=== PATIENT | male | born 1975 | race Caucasian/White ===

== ENCOUNTER 2024-07-31 20:43 | Inpatient (IN) ==
--- NOTE | 2024-07-31 21:09 | Emergency Department Note ---
Impression & Plan Atrial flutter with rapid ventricular response, Elevated troponin, MATTHIEU (acute kidney injury), Hypokalemia ED Provider Note NAME: FLORIDALMA DE LA TORRE IV AGE: 48 SEX: M : 1975 ARRIVES VIA: Walk-In INFORMANT: Patient ED PROVIDER(S): Dilshad Krause DO CHIEF COMPLAINT: Chest pain and shortness of breath HPI: Patient is a 48-year-old male who presents to the ER for chest pain, shortness of breath and some abdominal pain. He notes his symptoms initially started with intermittent abdominal pain since Friday. He has been struggling to go to the bathroom. He denies any black or tarry stools. He notes his belly feels bloated and does feel better after using the bathroom. He notes since Friday has been having off-and-on shortness of breath. He does not feel his heart racing. He does have some chest tightness and that occurs when he bends over. No dysuria, urgency, or frequency. No other exacerbating or remitting factors. Patient notes that he has a history of anxiety and feels extremely anxious at this time. ADDITIONAL HISTORY OBTAINED: Per HPI Chronic Medical/Social Conditions Affecting Care: Per HPI PAST MEDICAL HISTORY:See Below PAST SURGICAL HISTORY:See Below FAMILY HISTORY:See Below SOCIAL HISTORY:See Below HOME MEDICATIONS:See Below ALLERGIES:See Below VITALS:See Below PHYSICAL EXAMINATION: GENERAL: Sitting up in bed, alert, well appearing, well nourished, no distress, non-toxic EYE EXAM: normal conjunctiva. OROPHARYNX: mucous membranes are moist NECK: supple, no nuchal rigidity, no adenopathy, non-tender LUNGS: Clear to auscultation. Normal chest wall mechanics HEART: no murmurs, S1 normal and S2 normal ABDOMEN: abdomen soft, non-tender, normo-active bowel sounds, no masses, no rebound or guarding. UPPER EXTREMITIES: upper extremities are grossly normal. LOWER EXTREMITIES: No pitting edema. Calves are equal bilaterally NEURO EXAM: Normal sensorium, cranial nerves II-XII grossly intact, normal speech, no gross weakness of arms, no gross weakness of legs. MEDICAL DECISION MAKING: Patient is a 48-year-old male who presents ER for the above-stated complaint. IV was established medicos obtained. Labs show no significant leukocytosis or anemia. BMP with mild hypokalemia 3.4. Creatinine slightly up at 1.5. LFTs bilirubin is unremarkable. Troponin was elevated at 115. Lipase is unremarkable. Patient's heart rate was in the 140s. He was given IV fluids and 3 dose of IV Lopressor. Heart rate trended down to the 100s and showed A-fib. Blood pressure trended up from 230s to 160. Patient was updated bedside. Discussed the case with the hospitalist for further evaluation management treatment. Consults/Care Managements Discussions: Per MDM Triage Nursing notes reviewed. Limited review of prior medical records performed Vital Signs: reviewed and remarkable for tachycardic and hypertensive Differential diagnosis: Cardiac ischemia, aortic dissection, pulmonary embolism, pneumothorax, pneumonia, pericarditis, myocarditis, esophageal rupture, GERD, cholecystitis, pancreatitis, musculoskeletal, as well as other pathologies. ER treatment provided: See below Diagnostics interpreted by me include EKG and cardiac monitoring as listed below: -Cardiac Monitoring: An order was placed for continuous cardiac monitoring. The monitor shows a rate of 144 with AFLUTTER rhythm. -ECG: Atrial flutter rate of 144 Normal axis Right bundle branch block QTc 538 -Laboratory studies:Interpreted by me as stated above in MDM and shown below. Imaging studies: Xrays: As interpreted by me: Portable AP upright 1 view of the chest shows no focal Lutrate CTs show: None Procedures: None Critical Care: I have personally spent 45 minutes of critical care time in the direct management of this patient. This includes bedside care, interpretation of diagnostic studies, and testing, discussion with consultants, patient, and family members, and other required patient management activities. This 45 minutes is in excess of all separately billable procedures. Past Med/Surg History Problem List (Updated 07/31/24 @ 23:38 by Marissa Lyles DO) Hypokalemia MATTHIEU (acute kidney injury) HTN (hypertension) Atrial fibrillation and flutter Social History Smoking Status: Never smoker Preferred Language: Kyrgyz Feels Safe at Home: Yes Allergies Allergies Allergy/AdvReac Type Severity Reaction Status Date / Time garlic AdvReac Mild ELEVATED Unverified 07/31/24 22:32 BODY TEMP aspartame AdvReac Migraine Verified 07/31/24 22:17 lactose AdvReac Abdominal Verified 07/31/24 22:32 Pain mushroom AdvReac Abdominal Verified 07/31/24 22:32 Pain Home Meds Home Medications Medication Instructions Recorded Confirmed No Known Home Medications 07/31/24 07/31/24 Results & Data (ED) Vital Signs Vital Signs - 24 hr 07/31/24 20:44 07/31/24 21:03 07/31/24 21:06 Pulse Rate 143 H 143 H Pulse Rate [Apical] Pulse Rhythm Regular Pulse Rhythm [Apical] Pulse Strength Normal Pulse Strength [Apical] Respiratory Rate 20 37 H Respiratory Effort / Characteristics Non-Labored Spontaneous Respiratory Depth Normal Respiratory Pattern Regular Blood Pressure 245/117 H 237/188 H Blood Pressure [Right Arm] Blood Pressure Mean 159 204 Blood Pressure Mean [Right Arm] Blood Pressure Position Sitting Pulse Oximetry 97 Oxygen Delivery Method Room Air Sepsis Recent Fever Within 48 Hours No Sepsis New/Unexplained Change in Mental Status No Sepsis Action Taken by Nursing No Action Required 07/31/24 21:18 07/31/24 21:18 07/31/24 21:19 Pulse Rate 141 H 139 H Pulse Rate [Apical] Pulse Rhythm Pulse Rhythm [Apical] Pulse Strength Pulse Strength [Apical] Respiratory Rate 20 Respiratory Effort / Characteristics Respiratory Depth Respiratory Pattern Blood Pressure 225/184 H 225/184 H Blood Pressure [Right Arm] Blood Pressure Mean 194 Blood Pressure Mean [Right Arm] Blood Pressure Position Pulse Oximetry Oxygen Delivery Method Sepsis Recent Fever Within 48 Hours Sepsis New/Unexplained Change in Mental Status Sepsis Action Taken by Nursing 07/31/24 21:25 07/31/24 21:25 07/31/24 21:27 Pulse Rate 135 H Pulse Rate [Apical] 137 H Pulse Rhythm Pulse Rhythm [Apical] Pulse Strength Pulse Strength [Apical] Respiratory Rate 33 H Respiratory Effort / Characteristics Non-Labored Spontaneous Respiratory Depth Normal Respiratory Pattern Regular Blood Pressure Blood Pressure [Right Arm] 225/184 H Blood Pressure Mean Blood Pressure Mean [Right Arm] 197 Blood Pressure Position Pulse Oximetry 97 97 Oxygen Delivery Method Room Air Room Air Sepsis Recent Fever Within 48 Hours Sepsis New/Unexplained Change in Mental Status Sepsis Action Taken by Nursing 07/31/24 21:30 07/31/24 21:30 07/31/24 21:35 Pulse Rate 134 H Pulse Rate [Apical] Pulse Rhythm Pulse Rhythm [Apical] Pulse Strength Pulse Strength [Apical] Respiratory Rate Respiratory Effort / Characteristics Respiratory Depth Respiratory Pattern Blood Pressure 188/142 H 188/142 H 180/141 H Blood Pressure [Right Arm] Blood Pressure Mean 146 149 Blood Pressure Mean [Right Arm] Blood Pressure Position Pulse Oximetry Oxygen Delivery Method Sepsis Recent Fever Within 48 Hours Sepsis New/Unexplained Change in Mental Status Sepsis Action Taken by Nursing 07/31/24 21:42 07/31/24 21:45 07/31/24 21:45 Pulse Rate 109 H 104 H Pulse Rate [Apical] Pulse Rhythm Pulse Rhythm [Apical] Pulse Strength Pulse Strength [Apical] Respiratory Rate 19 18 Respiratory Effort / Characteristics Respiratory Depth Respiratory Pattern Blood Pressure 161/122 H Blood Pressure [Right Arm] Blood Pressure Mean 127 Blood Pressure Mean [Right Arm] Blood Pressure Position Pulse Oximetry Oxygen Delivery Method Sepsis Recent Fever Within 48 Hours Sepsis New/Unexplained Change in Mental Status Sepsis Action Taken by Nursing 07/31/24 21:45 07/31/24 21:54 07/31/24 22:00 Pulse Rate 105 H 104 H Pulse Rate [Apical] Pulse Rhythm Pulse Rhythm [Apical] Pulse Strength Pulse Strength [Apical] Respiratory Rate Respiratory Effort / Characteristics Respiratory Depth Respiratory Pattern Blood Pressure 161/122 H Blood Pressure [Right Arm] Blood Pressure Mean 127 Blood Pressure Mean [Right Arm] Blood Pressure Position Pulse Oximetry Oxygen Delivery Method Sepsis Recent Fever Within 48 Hours Sepsis New/Unexplained Change in Mental Status Sepsis Action Taken by Nursing 07/31/24 22:00 07/31/24 22:00 07/31/24 22:15 Pulse Rate 110 H Pulse Rate [Apical] Pulse Rhythm Pulse Rhythm [Apical] Pulse Strength Pulse Strength [Apical] Respiratory Rate 16 Respiratory Effort / Characteristics Respiratory Depth Respiratory Pattern Blood Pressure 159/122 H 159/122 H Blood Pressure [Right Arm] Blood Pressure Mean 140 140 Blood Pressure Mean [Right Arm] Blood Pressure Position Pulse Oximetry Oxygen Delivery Method Sepsis Recent Fever Within 48 Hours Sepsis New/Unexplained Change in Mental Status Sepsis Action Taken by Nursing 07/31/24 22:27 07/31/24 22:27 07/31/24 22:31 Pulse Rate 107 H 106 H Pulse Rate [Apical] Pulse Rhythm Pulse Rhythm [Apical] Pulse Strength Pulse Strength [Apical] Respiratory Rate Respiratory Effort / Characteristics Respiratory Depth Respiratory Pattern Blood Pressure 166/32 H 166/132 H 163/136 H Blood Pressure [Right Arm] Blood Pressure Mean 144 Blood Pressure Mean [Right Arm] Blood Pressure Position Pulse Oximetry Oxygen Delivery Method Sepsis Recent Fever Within 48 Hours Sepsis New/Unexplained Change in Mental Status Sepsis Action Taken by Nursing 07/31/24 22:31 07/31/24 22:31 07/31/24 22:33 Pulse Rate 110 H Pulse Rate [Apical] Pulse Rhythm Pulse Rhythm [Apical] Pulse Strength Pulse Strength [Apical] Respiratory Rate 13 Respiratory Effort / Characteristics Respiratory Depth Respiratory Pattern Blood Pressure 163/136 H 163/136 H Blood Pressure [Right Arm] Blood Pressure Mean 144 144 Blood Pressure Mean [Right Arm] Blood Pressure Position Pulse Oximetry Oxygen Delivery Method Sepsis Recent Fever Within 48 Hours Sepsis New/Unexplained Change in Mental Status Sepsis Action Taken by Nursing 07/31/24 23:05 07/31/24 23:17 07/31/24 23:22 Pulse Rate 133 H 104 H Pulse Rate [Apical] 135 H Pulse Rhythm Irregular Pulse Rhythm [Apical] Irregular Pulse Strength Pulse Strength [Apical] Normal Respiratory Rate 23 22 Respiratory Effort / Characteristics Non-Labored Spontaneous Respiratory Depth Normal Respiratory Pattern Regular Blood Pressure 190/154 H Blood Pressure [Right Arm] 189/155 H Blood Pressure Mean Blood Pressure Mean [Right Arm] 166 Blood Pressure Position Pulse Oximetry 96 95 Oxygen Delivery Method Room Air Room Air Sepsis Recent Fever Within 48 Hours Sepsis New/Unexplained Change in Mental Status Sepsis Action Taken by Nursing Laboratory Data 07/31/24 21:10 07/31/24 21:10 Lab Results 07/31/24 07/31/24 Range/Units 21:10 Unknown WBC 9.07 (4.8-10.8) K/ul RBC 5.51 (4.70-6.10) M/uL Hgb 15.3 (14.0-18.0) g/dl Hct 45.2 (42.0-52.0) % MCV 82.0 (80.0-100.0) fL MCH 27.8 (25.0-34.0) pg MCHC 33.8 (32.0-36.0) g/dL RDW Std Deviation 44.8 (36.4-46.3) fL RDW Coeff of Raheem 15.0 H (11.5-14.5) % Plt Count 296 (130-400) K/uL MPV 10.9 (9.4-12.4) fL Immature Gran % (Auto) 0.6 % Neut % (Auto) 77.2 % Lymph % (Auto) 14.4 % [place] % (Auto) 6.2 % Eos % (Auto) 0.9 % Baso % (Auto) 0.7 % Neut # (Auto) 7.01 H (1.40-6.50) K/uL Lymph # (Auto) 1.31 (1.20-3.40) K/uL [place] # (Auto) 0.56 (0.11-0.59) K/uL Eos # (Auto) 0.08 (0.00-0.50) K/uL Baso # (Auto) 0.06 (0.00-0.20) K/uL Immature Gran # (Auto) 0.05 (0.01-0.20) K/uL Sodium 137 (136-145) mmol/L Potassium 3.4 L (3.5-5.1) mmol/L Chloride 100 (98-107) mmol/L Carbon Dioxide 28 (21-32) mmol/L Anion Gap 9 (3-11) BUN 19 (6-23) mg/dl Creatinine 1.66 H (0.6-1.4) mg/dl Est Cr Clr Drug Dosing 72.4 ml/min Est GFR ( Amer) 55.6 ml/min Est GFR (Non-Af Amer) 48.0 ml/min BUN/Creatinine Ratio 11.4 (10-20) Glucose 152 H (70-99(Fasting)) mg/dl Calcium 9.5 (8.6-10.3) mg/dl Magnesium 2.2 (1.7-2.4) mg/dl Total Bilirubin 1.0 (0.2-1.0) mg/dl AST 24 (13-39) U/L ALT 29 (7-52) U/L Alkaline Phosphatase 85 (34-104) U/L Troponin I High Sens 113.7 H* (0-20) pg/ml Total Protein 7.1 (6.0-8.3) gm/dl Albumin 4.5 (3.4-5.0) gm/dl Globulin 2.6 (2.5-4.0) gm/dl Albumin/Globulin Ratio 1.7 (0.9-2) Lipase 7 L (11-82) U/L Urine Color Cancelled Urine Appearance Cancelled Urine pH Cancelled Ur Specific Davin Cancelled Urine Protein Cancelled Urine Glucose (UA) Cancelled Urine Ketones Cancelled Urine Blood Cancelled Urine Nitrite Cancelled Urine Bilirubin Cancelled Urine Urobilinogen Cancelled Ur Leukocyte Esterase Cancelled Urine WBC (Auto) Cancelled Urine RBC (Auto) Cancelled U Hyaline Cast (Auto) Cancelled U Epithel Cells (Auto) Cancelled Urine Bacteria (Auto) Cancelled Ur Renal Epithelial Cell Cancelled [place] Biurate Crystals Cancelled Calcium Oxalate Crystal Cancelled Leucine Crystals Cancelled Cystine Crystals Cancelled Uric Acid Crystals Cancelled Triple Phos Crystals Cancelled Sulfonamide Crystals Cancelled Cholesterol Crystals Cancelled [place] Crystals Cancelled Tyrosine Crystals Cancelled Hippuric Acid Crystals Cancelled Unidentified Crystals Cancelled Amorphous Sediment Cancelled Epithelial Casts Cancelled Hyaline Casts Cancelled Granular Casts Cancelled Waxy Casts Cancelled RBC Casts Cancelled WBC Casts Cancelled Other Casts Cancelled Urine Mucus Cancelled Urine Other Cancelled Urine Trichomonas Cancelled Urine Yeast Cancelled Urine Sperm Cancelled Ur Oval Fat Bodies Cancelled Administered Medications Metoprolol Tartrate (Metoprolol Tartrate 1 Mg/Ml Vial) 5 mg IV Q5M PRN PRN Reason: Tachycardia Stop: 08/30/24 21:04 Last Admin: 07/31/24 23:17 Dose: 5 mg Documented By: Admin: 07/31/24 21:30 Dose: 5 mg Documented By: Admin: 07/31/24 21:18 Dose: 5 mg Documented By: JULIEN Discontinued Medications Sodium Chloride (Nss) 1,000 mls @ 999 mls/hr IV .Q1H1M ONE Stop: 07/31/24 22:04 Last Infusion: 07/31/24 22:22 Dose: Infused Documented By: Admin: 07/31/24 21:21 Dose: 999 mls/hr Documented By: JULIEN Ondansetron HCl (Ondansetron Inj 2 Mg/Ml 2 Ml Vial) 4 mg IV NOW STA Stop: 07/31/24 21:27 Last Admin: 07/31/24 21:31 Dose: 4 mg Documented By: JULIEN Discharge Plan Visit Data Chief Complaint: GI Assessment Stated Complaint: GI ASSESSMENT ED Provider: Dilshad Krause Discharge Problem: Atrial flutter with rapid ventricular response, Elevated troponin, MATTHIEU (acute kidney injury), Hypokalemia Forms Stand Alone Forms: netomat Prescriptions Prescriptions: No Action No Known Home Medications Referrals Referrals: PCP,NO [Primary Care Provider] -
[2024-07-31] MEDS: METOPROLOL TARTRATE 1 MG/ML VIAL IV PRN (21:18)
[2024-07-31] MEDS: SODIUM CHLORIDE 0.9% 1,000 ML IV ONE (21:21)
[2024-07-31] MEDS: ONDANSETRON INJ 2 MG/ML 2 ML VIAL IV STA (21:31)
[2024-07-31 21:37] LABS: Basophils # (auto) 0.06 K/uL (0.00-0.20); Basophils % (auto) 0.7 %; Eosinophils # (auto) 0.08 K/uL (0.00-0.50); Eosinophils % (auto) 0.9 %; Hematocrit (blood only) 45.2 % (42.0-52.0); Hemoglobin 15.3 g/dl (14.0-18.0); Immature Granulocytes # (auto) 0.05 K/uL (0.01-0.20); Immature Granulocytes % (auto) 0.6 %; Lymphocytes # (auto) 1.31 K/uL (1.20-3.40); Lymphocytes % (auto) 14.4 %; Mean Corpuscular Hemoglobin 27.8 pg (25.0-34.0); Mean Corpuscular Hgb Conc 33.8 g/dL (32.0-36.0); Mean Platelet Volume 10.9 fL (9.4-12.4); Monocytes # (auto) 0.56 K/uL (0.11-0.59); Monocytes % (auto) 6.2 %; Neutrophils # (auto) 7.01 K/uL (1.40-6.50); Neutrophils % (auto) 77.2 %; Platelet Count 296 K/uL (130-400); RDW Standard Deviation 44.8 fL (36.4-46.3); Red Blood Count 5.51 M/uL (4.70-6.10); White Blood Count 9.07 K/ul (4.8-10.8)
[2024-07-31 21:55] LABS: Albumin Globulin Ratio 1.7 (0.9-2); Albumin Level 4.5 gm/dl (3.4-5.0); BUN Creatinine Ratio 11.4 (10-20); Calcium 9.5 mg/dl (8.6-10.3); Creatinine Clr Calc Pharmacy 72.4 ml/min; Est GFR (African American) 55.6 ml/min; Globulin 2.6 gm/dl (2.5-4.0); Potassium 3.4 mmol/L (3.5-5.1); Total Protein 7.1 gm/dl (6.0-8.3)
[2024-07-31 22:04] LABS: Troponin I High Sensitivity 113.7 pg/ml (0-20)
[2024-07-31 23:02] LABS: Magnesium 2.2 mg/dl (1.7-2.4)
--- NOTE | 2024-07-31 23:26 | History & Physical Report ---
Date of Service July 31, 2024 Assessment & Plan (1) Atrial fibrillation and flutter: Plan: - New onset - S/p Lopressor x 3 in ED with minimal improvement in rates - rates into 80s with IV Cardizem-> was transitioned to PO Cardizem but rates not well controlled -> start on amiodarone gtt - [id number]= 1-> will need anticoagulin - plan to start on heparin gtt - TTE pending - consult cardiology (2) HTN (hypertension): Plan: - Hypertensive on presentation, some improvement in Lopressor - likely has been hypertensive for a period of time - adjust regimen alone with afib (3) MATTHIEU (acute kidney injury): Plan: - MATTHIEU vs CKD - no baseline for comparison - if uncontrolled HTN, this could certainly be contributing to elevated creatinine - creatine= 1.66 - s/p 1L IVF in the ED - continue LR @ 125ml/hr for an additional 1L -> trend creatinine (4) Hypokalemia: Plan: - K= 3.4; repleted - Mg= 2.2 - continue to trend with goal K=4, Mg=2 (5) Elevated troponin: Plan: - trop 113-> 129 - likely demand in the setting of HTN emergency and new onset afib/flutter - chest pain resolved with decreased HR-> no ischemic changes on EKG - will trend to peak Plan Code: Full VTE Prophylaxis: Heparin gtt Diet: Heart Healthy Dispo: PCU History of Present Illness Primary Care Provider: NO PCP 48 year old male with a past medical history of HTN- not on any medications presenting with shortness of breath, chest tightness, abdominal discomfort. No PCP- has not been seen by a physician in a number of years. Over the past week noticed some increased abdominal bloating- thought it might be related to constipation. Began to feel short of breath, especially when leaning over and had some chest discomfort. Has never had symptoms like this before. When he arrived to the ED his HR was in the 140s blood pressure 240s/110s-> found to be in afib/flutter. No prior history of afib/flutter. Now s/p 5mg IV Lopressor x 2 with rates in the 100s. States that he is feeling much better. Still notes some abdominal bloating, but dyspnea/chest pain have improved. Denies dark/blood stools. Denies recent illness. Allergies Allergy/AdvReac Type Severity Reaction Status Date / Time garlic AdvReac Mild ELEVATED Unverified 07/31/24 22:32 BODY TEMP aspartame AdvReac Migraine Verified 07/31/24 22:17 lactose AdvReac Abdominal Verified 07/31/24 22:32 Pain mushroom AdvReac Abdominal Verified 07/31/24 22:32 Pain Home Medications Medication Instructions Recorded Confirmed Type No Known Home Medications 07/31/24 07/31/24 History Past Med/Surg History Problem List (Updated 08/01/24 @ 12:45 by Javier Shetty MD) Left ventricular dysfunction Elevated troponin Hypokalemia MATTHIEU (acute kidney injury) HTN (hypertension) Atrial fibrillation and flutter Social History Smoking Status: Never smoker Hx Alcohol Use: Yes Alcohol type: beer Hx Substance Use: No Preferred Language: Polish Communication Ability: Effective Zipper Trimmer Hand Required: No Beliefs That Will Affect Care: None Current Living Situation: Alone Other Information That Helps Us Care for You: No Feels Safe at Home: Yes Safety Concerns: Feels Safe At This Time Review of Systems Review of Systems: As per above Physical Exam Physical Exam: Constitutional: well-appearing, no acute distress HEENT: NCAT, no conjunctival injection CV: irregular rhythm, no murmur appreciated, extremities well-perfused, no LE edema Resp: CTABL, no wheezes/rales/rhonchi appreciated, no increased work of breathing GI: soft, nondistended, nontender MSK: no gross deformities appreciated Skin: warm, dry, no rash appreciated Neuro: alert, oriented, no focal neurologic deficit appreciated Results & Data Results & Data Vital Signs (Past 12 Hours) Vital Signs Pulse Pulse Resp BP BP Pulse Ox O2 Del Method 07/31/24 22:27 106 H 166/132 H 07/31/24 22:27 107 H 166/32 H 07/31/24 21:30 134 H 188/142 H 07/31/24 21:27 135 H 07/31/24 21:25 97 Room Air 07/31/24 21:25 137 H 33 H 225/184 H 97 Room Air 07/31/24 21:18 141 H 225/184 H 07/31/24 20:44 143 H 20 245/117 H 97 Room Air Supervising Physician Co-Signing Physician Notes Attending addendum: I have physically seen this patient, have supervised the medical residents activities, and agree with the H&P unless as otherwise noted. Assessment and Plan: Atrial flutter with RVR/hypertension- The patient will be admitted to telemetry for serial cardiac enzymes, serial EKG's, cardiac rhythm monitoring and a 2-D echocardiogram with Dopplers. Initial troponin 113.7, follow-up pending New onset diagnosis for patient, although he has had elevated blood pressure untreated by self-report for a number of years Received Lopressor 5 mg IV x 3 from the ED with little improvement Status post 1 L normal saline bolus from the ED Will give Klor-Con 40 mill equivalents p.o. now Trial of Cardizem 10 mg IV, and then placed on Cardizem 30 mg p.o. 4 times daily Patient had improved rate control, however, was still hypertensive to 180/100 Start amiodarone bolus with drip Consult cardiology Renal insufficiency- Creatinine 1.66, with no baseline for comparison Fluids as noted, recheck laboratories in the a.m. Hyperglycemia- Glucose 152 on admission, with no baseline for comparison Check hemoglobin A1c and fasting lipid panel Resident Activity Tracking Resident Involvement: Resident Care Provided Care Provided: Adult [facility] Medicine
[2024-07-31] MEDS: POTASSIUM CHLORIDE CRTAB 20 MEQ TABCR PO STA (23:52)
[2024-07-31] MEDS ORDERED: Heparin IV Adult Wt-Based Low-Dose *NO* INITIAL Bolus Protocol IV STA (23:57)
[2024-08-01] MEDS: HEPARIN SODIUM/DEXTROSE 25,000 UNITS/500 ML BAG IV SCH (00:17)
[2024-08-01] MEDS: dilTIAZem HCl 5 MG/ML 5 ML VIAL IV STA (00:34)
[2024-08-01] MEDS: dilTIAZem HCL 30 MG TAB PO STA (01:27)
[2024-08-01 02:21] LABS: Appearance Urine Clear (Clear); Bacteria Urine Automated None Seen (None Seen); Bilirubin Urine 1+ (Negative); Blood Urine Negative (Negative); Cast Urine Automated >20 /lpf (0-2); Color Urine Dark Yellow; Glucose Urine UA Negative (Negative); Hyaline Casts Urine Present /lpf (None Presnt); Ketones Urine Trace (Negative); Leukocyte Esterase Urine Negative (Negative); Nitrite Urine Negative (Negative); Protein Urine 4+ (Negative); RBC Urine Automated 0-2 /hpf (0-2); Specific Gravity Urine 1.028 (1.000-1.030); Urobilinogen Urine Negative (Negative); WBC Urine Automated 0-5 /hpf (0-5); pH Urine 5.5 (4.5-7.5)
[2024-08-01] MEDS: LACTATED RINGER'S 1,000 ML IV STA (02:54)
[2024-08-01] MEDS: dilTIAZem HCL 30 MG TAB PO SCH (05:37)
[2024-08-01 06:05] LABS: Hematocrit (blood only) 43.8 % (42.0-52.0); Hemoglobin 14.4 g/dl (14.0-18.0); Mean Corpuscular Hemoglobin 27.7 pg (25.0-34.0); Mean Corpuscular Hgb Conc 32.9 g/dL (32.0-36.0); Mean Corpuscular Volume 84.2 fL (80.0-100.0); Mean Platelet Volume 10.5 fL (9.4-12.4); Platelet Count 263 K/uL (130-400); RDW Coefficient of Variation 15.2 % (11.5-14.5); White Blood Count 8.66 K/ul (4.8-10.8)
[2024-08-01] MEDS ORDERED: AMIODARONE IV BOLUS & DRIP IV STA (06:05)
[2024-08-01] MEDS ORDERED: 0.2 MICRON FILTER SET 1 EACH IV STA (06:05)
[2024-08-01] MEDS ORDERED: STAT IV Infusion **Titration per Protocol STA (06:05)
[2024-08-01] MEDS: AMIODARONE / D5W 150 MG/100 ML BAG IV STA (06:21)
[2024-08-01 06:24] LABS: BUN Creatinine Ratio 12.6 (10-20); Calcium 9.1 mg/dl (8.6-10.3); Creatinine Clr Calc Pharmacy 75.6 ml/min; Est GFR (African American) 58.6 ml/min; Est GFR (Non-African American) 50.6 ml/min; Magnesium 2.2 mg/dl (1.7-2.4); Potassium 4.4 mmol/L (3.5-5.1)
[2024-08-01] MEDS: AMIODARONE / D5W 360 MG/200 ML BAG IV ONE (06:42)
[2024-08-01 07:48] LABS: ANTI-Xa, UFH(UnfractionatedHep < 0.10 IU/ml (0.3-0.7)
--- NOTE | 2024-08-01 08:08 | XRay Report ---
XR chest 1V portable CLINICAL HISTORY: Chest pain, nonspecific. COMPARISON STUDY: No previous studies for comparison. FINDINGS: There is no pneumothorax or pleural effusion. There is moderate enlargement of the cardiac silhouette. Pulmonary vascular congestion. There is no consolidation to suggest pneumonia. IMPRESSION: Moderate enlargement of the cardiac silhouette. Pulmonary vascular congestion. ACT 112: Negative or not required by law. Electronically signed by: Gavin Dimas M.D. 08/01/2024 8:07 AM
[2024-08-01] MEDS: HEPARIN SOD (PORCINE) 1000 UNIT/ML ONE (08:53)
--- NOTE | 2024-08-01 12:22 | Electrocardiogram Report ---
Test Reason : Blood Pressure : */* mmHG Vent. Rate : 102 BPM Atrial Rate : * BPM P-R Int : * ms QRS Dur : 170 ms QT Int : 430 ms P-R-T Axes : * 17 -29 degrees QTcB Int : 560 ms Atrial fibrillation with rapid ventricular response with premature ventricular or aberrantly conducte d complexes Right bundle branch block T wave abnormality, consider inferior ischemia Abnormal ECG When compared with ECG of 31-Jul-2024 21:00, (unconfirmed) Atrial fibrillation has replaced Atrial flutter Criteria for Septal infarct are no longer Present Inverted T waves have replaced nonspecific T wave abnormality in Inferior leads T wave inversion more evident in Anterior leads Confirmed by Javier Shetty ([id number]) on 08/01/2024 12:22:17 PM Referred By: REFERRED SELF Confirmed By: Javier Shetty
--- NOTE | 2024-08-01 12:22 | Electrocardiogram Report ---
Test Reason : Blood Pressure : */* mmHG Vent. Rate : 144 BPM Atrial Rate : 288 BPM P-R Int : * ms QRS Dur : 148 ms QT Int : 348 ms P-R-T Axes : 243 -7 -61 degrees QTcB Int : 538 ms Possible Atrial flutter with 2:1 A-V conduction Right bundle branch block Septal infarct , age undetermined Abnormal ECG No previous ECGs available Confirmed by Javier Shetty ([id number]) on 08/01/2024 12:22:28 PM Referred By: REFERRED SELF Confirmed By: Javier Shetty
--- NOTE | 2024-08-01 12:45 | Cardiology Consultation ---
Date of Consultation August 01, 2024 Assessment & Plan (1) Atrial fibrillation and flutter: -Suspect this has been present for a significant period of time. -Would discontinue amiodarone drip secondary to the above (i.e. no long- term anticoagulation). -Favor oral metoprolol titrate over diltiazem realizing left ventricular dysfunction. -Would use intravenous metoprolol to tartrate as needed for an elevated ventricular response. -Agree with intravenous heparin. -Would check a TSH level. 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 -Beta-cristina therapy as above. (3) HTN (hypertension): -Clearly needs antihypertensive agents. -Favor starting oral beta-blockers. History of Present Illness Attending Physician: Sae Lozada History of Present Illness Mr. Romero is a 48-year-old male admitted yesterday with new onset atrial fibrillation and a rapid ventricular response. This consultation was ordered to assist in his cardiac management. The patient was in his usual state of health until approximately 1 week prior to presentation. He began to experience significant "bloating" making it difficult for him to bend over and tie his shoes. Approximately 4 days ago, he began to note exertional dyspnea and intermittent chest discomfort. He was concerned that there was a "problem" and then presented to the emergency room for further care. On arrival here, the patient was in atrial fibrillation with a rapid ventricular response. His initial potassium level was low at 3.4. He was given intravenous metoprolol to tartrate with some improvement in his rates. He was then started on intravenous diltiazem and his ventricular sponsor is decreased into the 80s. He was transitioned over to oral diltiazem. He was also started on amiodarone drip. At no time as the patient experienced some palpitations. He has never been diagnosed with atrial fibrillation to the best of his knowledge. Currently, patient is resting comfortably in bed without complaints. Past medical and surgical history 1. Hypertension 2. 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 No tobacco Occasional alcohol Family history No early coronary artery disease Review of systems A 10 point review of system was undertaken and negative except that described above. 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 HEENT exam is negative. Neck is supple with full carotid upstrokes. There are no carotid bruits. Jugular venous pressure is flat at 90 degrees. There is no thyromegaly. Cardiovascular exam reveals an irregular regular rhythm with distant heart sounds. No obvious murmurs. Abdomen is soft without bruits but extremities reveal intact regard pulses bilaterally. There is no peripheral edema. Results & Data Vital Signs (Past 12 Hours) Vital Signs Temp Pulse Pulse Resp BP BP BP 08/01/24 11:22 37.2 C 90 20 173/129 H 08/01/24 09:01 92 H 24 168/130 H 08/01/24 08:30 89 24 154/123 H 08/01/24 08:16 82 22 152/118 H 08/01/24 07:47 87 24 181/134 H 08/01/24 07:16 81 22 148/120 H 08/01/24 06:48 84 22 178/118 H 08/01/24 06:30 103 H 15 180/136 H 08/01/24 06:03 104 H 22 179/134 H 08/01/24 05:51 97 H 18 188/148 H 08/01/24 05:27 92 H 19 169/138 H 08/01/24 05:00 87 19 176/153 H 08/01/24 03:57 85 21 181/130 H 08/01/24 03:00 86 20 166/139 H 08/01/24 01:54 77 19 157/112 H 08/01/24 01:50 36.7 C 92 H 18 152/126 H 08/01/24 01:24 93 H 19 158/125 H 08/01/24 01:12 94 H 21 158/125 H 08/01/24 01:00 88 17 163/127 H 08/01/24 00:45 82 15 161/129 H Pulse Ox O2 Del Method O2 Flow Rate 08/01/24 11:22 98 Room Air 08/01/24 09:01 98 Room Air 08/01/24 08:30 97 Room Air 08/01/24 08:16 97 Room Air 08/01/24 07:47 97 Room Air 08/01/24 07:16 96 Room Air 08/01/24 06:48 98 08/01/24 06:30 98 08/01/24 06:03 98 08/01/24 05:51 99 08/01/24 05:27 96 08/01/24 05:00 96 08/01/24 03:57 96 08/01/24 03:00 96 08/01/24 01:54 95 08/01/24 01:50 96 Room Air 08/01/24 01:24 96 Nasal Cannula 2 08/01/24 01:12 96 08/01/24 01:00 94 08/01/24 00:45 95 Laboratory Results Initial high-sensitivity troponin was 114 with follow-up values of 129 and 148. Initial potassium level was 3.4 with a follow-up value of 4.4. Diagnostic Findings Echocardiogram notes moderate to severe left ventricular dysfunction with an ejection fraction of 25 to 30%. There is moderate to severe global hypokinesis. There is mild LVH along with mild mitral regurgitation. EKG notes atrial fibrillation with a rapid ventricular response and incomplete right bundle branch block. Chest x-ray notes cardiomegaly and mild interstitial edema. PG Care Time/CCT Total # of Minutes Spent Total Time Spent with Patient: Total time spent is greater than 50% in coordination of care (as documented) at patient's floor/unit and/or counseling patient: Coding Level of Care Code 97061 IN/OBS CONSULT LVL 4,60M Diagnoses Atrial fibrillation and flutter I48.91; I48.92 Left ventricular dysfunction I51.9 HTN (hypertension) I10
--- NOTE | 2024-08-01 12:55 | XCELERA ---
[id number]
[2024-08-01] MEDS: AMIODARONE / D5W 360 MG/200 ML BAG IV SCH (13:13)
[2024-08-01 15:11] LABS: ANTI-Xa, UFH(UnfractionatedHep 0.12 IU/ml (0.3-0.7)
[2024-08-01] MEDS: ONDANSETRON INJ 2 MG/ML 2 ML VIAL IV SCH (16:07)
[2024-08-01] MEDS: HEPARIN SOD (PORCINE) 1000 UNIT/ML IV ONE ×2 (16:56→22:51)
--- NOTE | 2024-08-01 19:10 | Billing Data ---
Date of Service August 01, 2024 Coding Level of Care Code 78436 INT INP/OBS CARE
[2024-08-01] MEDS: METOPROLOL TARTRATE 1 MG/ML VIAL IV STA (20:07)
--- NOTE | 2024-08-01 21:05 | Communication Note ---
Date of Service: August 01, 2024 Notified at ~2000 this evening of pts rates in the 120s with BP 160s/130s. Asymptomatic. Last evening trial of Lopressor and Cardizem without good rate control- ultimately had good rate control with amiodarone. Per cardiology - amiodarone was d/c this morning due to concern of no intermediate designer anticoagulation/likely intermediate designer afib/flutter. Due to cardiomyopathy/reduced EF cardiology recommending beta cristina over Cardizem. Was given 5mg Lopressor with improvement in rates to low 100s. Stop Cardizem, start metoprolol tartrate-> will start with 50mg PO and see how he responds.
[2024-08-01] MEDS: METOPROLOL TARTRATE 50 MG TAB PO STA (22:08)
[2024-08-01 22:19] LABS: ANTI-Xa, UFH(UnfractionatedHep 0.19 IU/ml (0.3-0.7)
--- NOTE | 2024-08-01 22:46 | Hospitalist Progress Note ---
Date of Service August 01, 2024 Assessment & Plan (1) Atrial fibrillation and flutter: Plan: - New onset - S/p Lopressor x 3 in ED with minimal improvement in rates - rates into 80s with IV Cardizem-> was transitioned to PO Cardizem but rates not well controlled -> start on amiodarone gtt - [id number]= 2->HTN and CHF will need anticoagulin - plan to start on heparin gtt - TTE: lower EF tachycardia induced cardiomyopathy - consult cardiology: may need electrical cardioversion in AM amiodarone discontinued. (2) HTN (hypertension): Plan: - Hypertensive on presentation, some improvement in Lopressor - likely has been hypertensive for a period of time - adjust regimen alone with afib (3) MATTHIEU (acute kidney injury): Plan: - MATTHIEU vs CKD - no baseline for comparison - if uncontrolled HTN, this could certainly be contributing to elevated creatinine - creatine= 1.66 - s/p 1L IVF in the ED - continue LR @ 125ml/hr for an additional 1L -> trend creatinine (4) Hypokalemia: Plan: - K= 3.4; repleted - Mg= 2.2 - continue to trend with goal K=4, Mg=2 (5) Elevated troponin: Plan: - trop 113-> 129 - likely demand in the setting of HTN emergency and new onset afib/flutter - chest pain resolved with decreased HR-> no ischemic changes on EKG - will trend to peak Plan Code: Full VTE Prophylaxis: Heparin gtt Diet: Heart Healthy Dispo: PCU Admission and Anticipated Discharge Date Admission Date: July 31, 2024 Subjective 48 yo male reports no new symptoms. Review of Systems Review of Systems: All systems reviewed & are unremarkable except as noted in HPI & below Physical Exam Physical Exam: Constitutional: well-appearing, no acute distress HEENT: NCAT, no conjunctival injection CV: irregular rhythm, no murmur appreciated, extremities well-perfused, no LE edema Resp: CTABL, no wheezes/rales/rhonchi appreciated, no increased work of breathing GI: soft, nondistended, nontender MSK: no gross deformities appreciated Skin: warm, dry, no rash appreciated Neuro: alert, oriented, no focal neurologic deficit appreciated Results & Data Results & Data Vital Signs (Past 12 Hours) Vital Signs Temp Pulse Pulse Resp BP BP Pulse Ox 08/01/24 22:41 37.5 C 117 H 16 174/130 H 96 08/01/24 20:22 100 H 155/106 H 08/01/24 20:07 120 H 164/129 H 08/01/24 19:20 37.9 C H 122 H 17 163/119 H 99 08/01/24 15:15 77 16 156/102 H 95 08/01/24 14:03 101 H 08/01/24 12:38 104 H 08/01/24 11:22 37.2 C 90 20 173/129 H 98 O2 Del Method 08/01/24 22:41 Room Air 08/01/24 20:22 08/01/24 20:07 08/01/24 19:20 Room Air 08/01/24 15:15 Room Air 08/01/24 14:03 08/01/24 12:38 08/01/24 11:22 Room Air PG Care Time/CCT Total # of Minutes Spent Total Time Spent with Patient: Total time spent is greater than 50% in coordination of care (as documented) at patient's floor/unit and/or counseling patient: Coding Level of Care Code 21965 SUB INP/OBS CARE 2/35MIN Diagnoses Atrial fibrillation and flutter I48.91; I48.92 HTN (hypertension) I10 MATTHIEU (acute kidney injury) N17.9 Hypokalemia E87.6 Elevated troponin R79.89
[2024-08-01] MEDS: COUGH DROP (SUGAR FREE) LOZ 24 LOZ/1 BOX BUCCAL PRN (22:57)
[2024-08-01] MEDS: METOPROLOL TARTRATE 25 MG TAB PO ONE (23:01)
[2024-08-02 06:29] LABS: Hematocrit (blood only) 41.1 % (42.0-52.0); Hemoglobin 13.3 g/dl (14.0-18.0); Mean Corpuscular Hemoglobin 26.9 pg (25.0-34.0); Mean Corpuscular Hgb Conc 32.4 g/dL (32.0-36.0); Mean Platelet Volume 11.1 fL (9.4-12.4); Platelet Count 243 K/uL (130-400); RDW Coefficient of Variation 15.1 % (11.5-14.5); RDW Standard Deviation 45.2 fL (36.4-46.3); Red Blood Count 4.95 M/uL (4.70-6.10); White Blood Count 10.13 K/ul (4.8-10.8)
[2024-08-02 06:43] LABS: Calcium 8.9 mg/dl (8.6-10.3); Creatinine Clr Calc Pharmacy 67.9 ml/min; Est GFR (African American) 50.8 ml/min; Est GFR (Non-African American) 43.8 ml/min; Potassium 3.8 mmol/L (3.5-5.1)
[2024-08-02 07:09] LABS: ANTI-Xa, UFH(UnfractionatedHep 0.26 IU/ml (0.3-0.7)
[2024-08-02] MEDS: METOPROLOL TARTRATE 50 MG TAB PO SCH (09:14)
--- NOTE | 2024-08-02 09:45 | Cardiology Progress Note ---
Date of Service August 02, 2024 Assessment & Plan (1) Acute HFrEF (heart failure with reduced ejection fraction): (2) Atrial fibrillation and flutter: (3) Cardiomyopathy: (4) HTN (hypertension): (5) Elevated troponin: Plan ASSESSMENT/PLAN: 1. Acute heart failure with reduced EF: He appears hypervolemic. Likely due to atrial flutter with rapid ventricular response. NYHA class III. Lasix 40 mg IV x 1 now. Start Entresto. Recommend metoprolol succinate in place of tartrate when done titrating. Recommend mineralocorticoid receptor antagonist and SGLT2 inhibitor, likely to begin later this hospital stay, pending stable renal function. Less than 2000 mg sodium per day. Strict I's and O's (communicated with nursing staff). Daily weights. Heart failure program referral for outpatient medication titration. TSH ordered. BNP ordered. Monitor renal function and electrolytes. 2. Atrial flutter: We discussed the diagnosis in detail. Recommend jehovah's witness of sinus rhythm. Discussed cardioversion and also ablation. Ablation is not available today or tomorrow. Recommend transesophageal echo to evaluate for thrombus and if no thrombus, cardioversion. Risks and benefits of transesophageal echo and cardioversion discussed in detail. He is agreeable to proceed when anesthesia is available. Continue anticoagulation for stroke risk reduction. Likely referral to EP to consider atrial flutter ablation in the future. TSH ordered. 3. Cardiomyopathy: Likely tachycardia induced. Recommend plan as above and if no significant recovery in the next few weeks, would recommend ischemic evaluation and other secondary evaluation as necessary. Medical therapy as above. ICD for primary prevention if EF remains less than 35% after 3 months of optimal therapy. 4. Hypertension: Blood pressure elevated. Initiating goal-directed medical therapy for heart failure as above which should also improve his blood pressure. 5. Elevated troponin: Likely due to demand ischemia in the setting of heart failure and atrial flutter with rapid ventricular response. No definite angina as symptoms are likely related to his heart failure. Low threshold for cardiac catheterization if he does not improve with management of his atrial flutter and heart failure. No urgent indication for cardiac catheterization but we discussed potential in the future if LV systolic function does not improve. 6. Disposition: Cardiology will continue to follow. Plan of care communicated with Dr. Correa of the primary hospitalist service. Admission and Anticipated Discharge Date Admission Date: July 31, 2024 Subjective Patient seen this morning. He still has chest tightness with exertion at times but much better. He still has shortness of breath with exertion and bending over. He has positional lightheadedness/dizziness at times. He denies orthopnea but sleeps with his head elevated given a recent shoulder injury. He still has edema. His sister (Kiki) was present at the bedside. Physical Exam Physical Exam: Gen.: No acute distress. Alert and oriented. HEENT: Anicteric sclera. Neck: Thick neck. Cardiac: Irregular and tachycardic. Normal S1-S2. No murmurs, rubs, or gallops. Pulmonary: Clear to auscultation bilaterally without wheezes, rales, or rhonchi. Abdomen: Soft, nontender, nondistended, with normoactive bowel sounds. No bruits noted. Extremities: 2+ radial pulses bilaterally. 2+ posterior tibialis pulses bilaterally 1-2+ bilateral lower extremity edema. No cyanosis. Psychiatric: Affect appears appropriate. Results & Data Vital Signs (Past 12 Hours) Vital Signs Temp Pulse Pulse Resp BP BP Pulse Ox 08/02/24 07:34 36.8 C 88 18 149/96 H 97 08/02/24 03:25 96 H 08/02/24 03:00 37.4 C 92 H 16 155/112 H 168/123 H 96 08/01/24 22:41 37.5 C 117 H 16 174/130 H 96 O2 Del Method 08/02/24 07:34 Room Air 08/02/24 03:25 08/02/24 03:00 Room Air 08/01/24 22:41 Room Air Intake & Output 07/31/24 08/01/24 08/02/24 08/03/24 06:59 06:59 06:59 06:59 Intake Total 1124 / 1124 2106.000 / 2106.000 296.367 / 296.367 Output Total 50 / 50 0 / 0 Balance 1074 / 1074 2106.000 / 2106.000 296.367 / 296.367 Weight 261 lb 14.546 oz 267 lb 4.8 oz Laboratory Results Laboratory Results - last 24 hr 08/01/24 08/01/24 08/02/24 14:23 21:37 06:07 WBC 10.13 RBC 4.95 Hgb 13.3 L Hct 41.1 L MCV 83.0 MCH 26.9 MCHC 32.4 RDW Std Deviation 45.2 RDW Coeff of Raheem 15.1 H Plt Count 243 MPV 11.1 Heparin Anti-Xa, Unfract 0.12 L 0.19 L 0.26 L Sodium 134 L Potassium 3.8 Chloride 100 Carbon Dioxide 27 Anion Gap 7 BUN 25 H Creatinine 1.79 H Est Cr Clr Drug Dosing 67.9 Est GFR ( Amer) 50.8 Est GFR (Non-Af Amer) 43.8 BUN/Creatinine Ratio 14.0 Glucose 118 H Calcium 8.9 Diagnostic Findings Labs reviewed and notable for abnormal but stable renal function, normal potassium. Normal transaminase levels. Mild anemia. Elevated high-sensitivity troponin. Telemetry personally reviewed: Atrial flutter with improved heart rate but still rapid ventricular response. ECG personally reviewed 08/02/2024 at 6:16 AM: Atrial flutter 106 bpm. RBBB. Echo images personally reviewed from 08/01/2024: Severely reduced LV systolic function. Global hypokinesis. Medications Administered Current Inpatient Medications Acetaminophen (Acetaminophen 500 Mg Tab) 1,000 mg PO Q8H PRN PRN Reason: Pain or Fever Stop: 08/31/24 20:59 Heparin Sodium/Dextrose (Heparin Sodium/Dextrose) 25,000 units in 500 mls @ 36 mls/hr IV .[id number] [facility]; Protocol Stop: 08/31/24 00:14 Last Titration: 08/02/24 07:21 Dose: 1,800 units/hr, 36 mls/hr Menthol (Cough Drop (Sugar Free) Quan 24 Quan/1 Box) 1 quan BUCCAL PRN PRN PRN Reason: Sore Throat Stop: 08/31/24 22:38 Last Admin: 08/01/24 22:57 Dose: 1 quan Metoprolol Tartrate (Metoprolol Tartrate 50 Mg Tab) 50 mg PO BID [facility] Stop: 09/01/24 08:59 Last Admin: 08/02/24 09:14 Dose: 50 mg Ondansetron HCl (Ondansetron Inj 2 Mg/Ml 2 Ml Vial) 4 mg IV Q6H [facility] Stop: 08/31/24 15:59 Last Admin: 08/02/24 09:15 Dose: Not Given PG Care Time/CCT Total # of Minutes Spent Total Time Spent with Patient: Total time spent is greater than 50% in coordination of care (as documented) at patient's floor/unit and/or counseling patient: Coding Level of Care Code 52403 SUB INP/OBS CARE 50MIN Diagnoses Acute HFrEF (heart failure with reduced ejection fraction) I50.21 Atrial fibrillation and flutter I48.91; I48.92 Cardiomyopathy I42.9 HTN (hypertension) I10 Elevated troponin R79.89
[2024-08-02 11:07] LABS: Estimated Average Glucose 131 mg/dl; Hemoglobin A1C 6.2 % (4.5-5.6)
[2024-08-02] MEDS: FUROSEMIDE 40 MG/4 ML VIAL IV ONE (11:43)
[2024-08-02 13:19] LABS: Creatinine Urine Random 239.8 mg/dl; Protein Creatinine Ratio Urine 1.4 (0-0.2); Total Protein Urine Random 339.9 mg/dl (0-11.9)
[2024-08-02 15:19] LABS: ANTI-Xa, UFH(UnfractionatedHep 0.23 IU/ml (0.3-0.7)
--- NOTE | 2024-08-02 16:35 | Ultrasound Report ---
RENAL ULTRASOUND HISTORY: Acute renal failure renal fialure,proteinuria COMPARISON: None. FINDINGS: Right kidney: 12.0 cm. No hydronephrosis. Normal corticomedullary differentiation and cortical thickn ess. Left kidney: 13.0 cm. 2.1 x 1.9 x 2.2 cm cyst noted within the inferior pole. No hydronephrosis. Norm al corticomedullary differentiation and cortical thickness. Bladder: Partial distention. The bilateral ureteral jets were identified. Indeterminate 9 mm echogenic focus noted within the right lobe of the liver, possibly a small hemangi angelica. IMPRESSION: 1. No renal calculi or hydronephrosis. 2. Benign-appearing left renal cyst. ACT 112: Negative or not required by law. Electronically signed by: Tristin Solano M.D. 08/02/2024 4:34 PM
--- NOTE | 2024-08-02 17:27 | Nephrology Consultation ---
Date of Consultation August 02, 2024 Assessment & Plan (1) Proteinuria: (2) MATTHIEU (acute kidney injury): (3) Hypokalemia: (4) HTN (hypertension): (5) Cardiomyopathy: Plan 48 yr old gentleman with no past medical history but has not been to a physician for many years, presented with A flutter with RVR, CHF, severe cardiomyopathy, poorly controlled hypertension, and noted to have abnormal kidney function and high grade proteinuria. Urine analysis was negative for hematuria. Kidney ultrasound was otherwise unremarkable. On admission creatinine was 1.7 mg/dl, which stayed relatively stable from 1.7-1.8 mg/dl since admission. Unclear whether this is truly MATTHIEU or CKD as no prior records available. However, it is quite possible he has underlying CKD secondary to hypertensive nephrosclerosis or cardiorenal syndrome. Possibility for MATTHIEU remains, but seems less likely. Pr oteinuria could be secondary to CHF or other etiology. Blood pressure remains elevated although slightly improved. On beta-cristina and Entresto. -- Considering high grade proteinuria on urine analysis, we'll get 24 urine collection for better assessment of proteinuria. Order serology and paraproteinemia workup. -- Okay to continue on Entresto, and if kidney functions stay relatively stable, okay to increase dose as needed. -- agree with SGLT2i once kidney function stabilize. -- Renal panel in AM Thank you for the consult. Pleasure to see Mr. Romero. History of Present Illness Reason for Consultation: abnormal kidney function, MATTHIEU vs CKD, Proteinuria. Attending Physician: Eulalia Correa MD History of Present Illness Mr. Andi Romero is a 48 year old male with no known past medical history, admitted to hospital with CHF, A flutter with RVR and hypertensive urgency. Nephrology consult was requested for evaluation and management for abnormal kidney function and proteinuria. EMR records were reviewed in detail during visit. Sister was at bedside. Andi presented to the hospital on 07/31/24 with a few days history of feeling of bloating, abdominal discomfort, shortness of breath, and chest tightness. No known past medical history. He has been otherwise feeling well until recently and has not been to a physician for several years and does not recall having any blood work done over a period of at least 5 years or longer. On arrival to ER, he was noted to be hypertensive with systolic blood pressure around 170s-180s. He was found to be in A Flutter with RVR, heart rate in 140s, chest X-ray with cardiomegaly and pulmonary vascular congestion. EKG with A Flutter and T-wave changes. Troponin was mildly elevated. BNP was above 700. Lab was notable for elevated creatinine of 1.7 mg/dl. Urine analysis with 4+ proteinuria, no hematuria. Albumin normal. No anemia. Hb A1c 6.2. Kidney ultrasound was otherwise unremarkable, no postrenal obstruction. 2D echo showed mild concentric LVH, EF 20-25%. He was given 1 dose of IV lasix. Started on beta cristina, was also started on Entresto, and planned for GUERRERO and possible cardioversion. No history of NSAID use. Never smoker. Doesn't drink alcohol. No known family history of chronic kidney disease. Blood pressure remained elevated. Overall, he reports feeling slightly better, but still has some shortness of breath. Denies chest pain or palpitations. Denies dysuria, gross hematuria. Has been voiding normally but reports he occasionally noticed dark urine, because of the nature of his job, he stays pretty busy and tends to get dehydrated. Allergies Allergy/AdvReac Type Severity Reaction Status Date / Time garlic AdvReac Mild ELEVATED Unverified 07/31/24 22:32 BODY TEMP aspartame AdvReac Migraine Verified 07/31/24 22:17 lactose AdvReac Abdominal Verified 07/31/24 22:32 Pain mushroom AdvReac Abdominal Verified 07/31/24 22:32 Pain Home Medications Medication Instructions Recorded Confirmed Type No Known Home Medications 07/31/24 07/31/24 History Patient History Medical History (Updated 08/02/24 @ 18:19 by Eulalia Correa MD) Dilatation of thoracic aorta Social History Smoking Status: Never smoker Hx Alcohol Use: Yes Alcohol type: beer Hx Substance Use: No Preferred Language: Sammarinese Communication Ability: Effective Consultant Required: No Beliefs That Will Affect Care: None Current Living Situation: Alone Other Information That Helps Us Care for You: No Feels Safe at Home: Yes Safety Concerns: Feels Safe At This Time Assistive Devices: None Review of Systems Review of Systems: All systems reviewed & are unremarkable except as noted in HPI & below Physical Exam Constitutional: WD/WN, vitals as above no acute distress Eyes: + anicteric sclerae Respiratory: no respiratory distress Cardiovascular: Rate/Rhythm: + tachycardic and + irregularly irregular Heart Sounds: normal S1 and normal S2 Extremities: + edema Gastrointestinal (Abdomen): Inspection/Auscultation: abdomen normal to inspection Musculoskeletal: Extremities: extremities normal to inspection Skin: no rashes, warm and dry Neurologic: no focal motor deficits Psychiatric: Orientation: alert and oriented x 3 Affect: euthymic affect Results & Data Vital Signs (Past 12 Hours) Vital Signs Temp Pulse Pulse Resp BP BP Pulse Ox 08/02/24 15:03 36.8 C 74 19 146/98 H 99 08/02/24 13:51 100 H 08/02/24 11:50 36.8 C 101 H 20 154/132 H 162/151 H 98 08/02/24 07:34 36.8 C 88 18 149/96 H 97 O2 Del Method 08/02/24 15:03 Room Air 08/02/24 13:51 08/02/24 11:50 Room Air 08/02/24 07:34 Room Air PG Care Time/CCT Total # of Minutes Spent Total Time Spent with Patient: Total time spent is greater than 50% in coordination of care (as documented) at patient's floor/unit and/or counseling patient: Coding Level of Care Code 21384 INT INP/OBS CARE 3/75MIN Diagnoses Proteinuria R80.9 MATTHIEU (acute kidney injury) N17.9 Hypokalemia E87.6 HTN (hypertension) I10 Cardiomyopathy I42.9
--- NOTE | 2024-08-02 18:33 | Hospitalist Progress Note ---
Date of Service August 02, 2024 Assessment & Plan (1) Atrial fibrillation and flutter: Plan: Remains in rapid atrial flutter with rates in the 120s-130s TSH checked and normal at 1.9 Continue heparin drip for stroke prevention with plan to eventually convert to Eliquis-will weir check Eliquis through nurse navigator Started metoprolol tartrate 50 Mg p.o. twice daily and discontinued diltiazem given low EF Avoid antiarrhythmics for now until after GUERRERO is negative for thrombus Plan for n.p.o. after midnight and GUERRERO with electrical cardioversion in the morning Possible need for atrial flutter ablation in the future (2) Acute HFrEF (heart failure with reduced ejection fraction): Plan: Presented with rapid weight gain, lower extremity edema, shortness of breath, chest x-ray with pulmonary edema and cardiomegaly. With significant hypertension and with rapid atrial flutter. BNP elevated at 743. Echocardiogram with global hypokinesis and LVEF 25-30%, mild MR, mildly dilated thoracic aortic aneurysm at 3.7 cm Possibly from tachyarrhythmia. TSH normal Rate and rhythm control for atrial flutter being pursued Start Entresto Started metoprolol tartrate and convert to Toprol-XL after dose is uptitrated Plan to start MRA or SGLT2 inhibitor later this hospital stay if renal function stabilizes Follow BMP, magnesium and keep electrolytes optimized Daily weights, low-sodium diet, strict I's and O's Follow echocardiogram in future and place ICD for primary prevention if EF remains less than 35% after 3 months of optimal therapy (3) HTN (hypertension): Plan: Hypertensive on presentation, some improvement in Lopressor- likely has been hypertensive for a period of time. He reports treatment for hypertension at age 33 approximately with lisinopril but lost 30 to 40 pounds of weight and his blood pressures improved at that time. He has not been seen by since then but has been told his blood pressure has been high at urgent care visits Blood pressures are now improving with starting metoprolol and giving Lasix Starting Entresto now Follow blood pressures (4) MATTHIEU (acute kidney injury): Plan: MATTHIEU vs CKD-there is no baseline for comparison. He does have 4+ proteinuria on urinalysis. Could be hypertensive nephrosclerosis. Hemoglobin A1c only in the prediabetes range He is making urine and no other electrolyte abnormalities. He is volume overloaded as above with heart failure and rapid atrial flutter He was initially given IV fluids but now giving Lasix for heart failure and volume overload as above Creatinine 1.6 on admission and now up to 1.79 Giving Lasix Consult nephrology appreciated Check spot protein to creatinine ratio, and other serologies as part of workup for primary glomerulonephritis Checking 24-hour urine protein Follow BMP daily (5) Proteinuria: Plan: 4+ urinalysis, checking 24-hour urine protein given renal failure as above (6) Hypokalemia: Plan: Mildly low on admission and replaced Replace cautiously given elevated creatinine Follow BMP, magnesium (7) Elevated troponin: Plan: trop 113-> 129 and peaked at 147-check again this morning shows it is down to 81 ECG without definite ischemic changes but show right bundle branch block Cardiology recommends low threshold for cardiac catheterization if his LVEF does not improve with management of his atrial flutter and heart failure This is most likely due to myocardial demand ischemia in the setting of acute HFrEF and renal failure along with rapid atrial flutter (8) Dilatation of thoracic aorta: Plan: Noted to be 3.7 cm of the ascending thoracic aorta Needs improved control of hypertension Follow with echocardiogram at least annually (9) Prediabetes: Plan: Hemoglobin A1c here elevated at 6.2% in the prediabetes range Needs low carbohydrate diet and weight loss Monitor as an outpatient with PCP Plan Code: Full VTE Prophylaxis: Heparin gtt Disposition-continued stay on PCU Discussed care with sister and 2 friends at the bedside on 08/02 Admission and Anticipated Discharge Date Admission Date: July 31, 2024 Subjective Patient reports feeling much better since receiving Lasix. He reports an 8 pound weight gain in the last week but has noticed that his urine has been more concentrated and dark yellow in color for the last 2 months. No foamy urine. He denies any palpitations. He feels less bloated today. Telemetry with atrial flutter with rates in the 130s I discussed his care with cardiology Physical Exam Constitutional: WD/WN, vitals as above + obese Neck: trachea midline, no thyromegaly Respiratory: normal respiratory effort, lungs clear to auscultation Cardiovascular: Rate/Rhythm: + tachycardic and + irregularly irregular Extremities: + edema (2+ pitting edema of the legs bilaterally to the knees) Chest (Breasts): Chest: normal inspection of chest Musculoskeletal: Extremities: no cyanosis and no clubbing Skin: no rashes, warm and dry Neurologic: moves all extremities and awake; no focal motor deficits Psychiatric: A+Ox3, euthymic affect Results & Data Results & Data Vital Signs (Past 12 Hours) Vital Signs Temp Pulse Pulse Resp BP BP Pulse Ox 08/02/24 15:03 36.8 C 74 19 146/98 H 99 08/02/24 13:51 100 H 08/02/24 11:50 36.8 C 101 H 20 154/132 H 162/151 H 98 08/02/24 07:34 36.8 C 88 18 149/96 H 97 O2 Del Method 08/02/24 15:03 Room Air 08/02/24 13:51 08/02/24 11:50 Room Air 08/02/24 07:34 Room Air Laboratory Results CBC, BMP, TSH, BNP, troponin, spot protein to creatinine ratio reviewed PG Care Time/CCT Total # of Minutes Spent Total Time Spent with Patient: Total time spent is greater than 50% in coordination of care (as documented) at patient's floor/unit and/or counseling patient: Coding Level of Care Code 32900 SUB INP/OBS CARE 3/50MIN Diagnoses Atrial fibrillation and flutter I48.91; I48.92 Acute HFrEF (heart failure with reduced ejection fraction) I50.21 HTN (hypertension) I10 MATTHIEU (acute kidney injury) N17.9 Proteinuria R80.9 Hypokalemia E87.6 Elevated troponin R79.89 Dilatation of thoracic aorta I77.810 Prediabetes R73.03
[2024-08-02] MEDS: VALSARTAN/SACUBITRIL 26/24MG TAB PO SCH (21:11)
[2024-08-02 22:08] LABS: ANTI-Xa, UFH(UnfractionatedHep 0.25 IU/ml (0.3-0.7)
[2024-08-03 04:58] LABS: Hematocrit (blood only) 39.4 % (42.0-52.0); Hemoglobin 13.1 g/dl (14.0-18.0); Mean Corpuscular Hemoglobin 27.4 pg (25.0-34.0); Mean Corpuscular Hgb Conc 33.2 g/dL (32.0-36.0); Mean Corpuscular Volume 82.4 fL (80.0-100.0); RDW Coefficient of Variation 15.1 % (11.5-14.5); RDW Standard Deviation 45.4 fL (36.4-46.3); Red Blood Count 4.78 M/uL (4.70-6.10); White Blood Count 8.57 K/ul (4.8-10.8)
[2024-08-03 04:59] LABS: Basophils # (auto) 0.07 K/uL (0.00-0.20); Basophils % (auto) 0.8 %; Eosinophils # (auto) 0.14 K/uL (0.00-0.50); Eosinophils % (auto) 1.6 %; Immature Granulocytes # (auto) 0.02 K/uL (0.01-0.20); Immature Granulocytes % (auto) 0.2 %; Lymphocytes # (auto) 1.75 K/uL (1.20-3.40); Lymphocytes % (auto) 20.4 %; Mean Platelet Volume 11.5 fL (9.4-12.4); Monocytes # (auto) 1.14 K/uL (0.11-0.59); Monocytes % (auto) 13.3 %; Neutrophils # (auto) 5.45 K/uL (1.40-6.50); Neutrophils % (auto) 63.7 %; Platelet Count 240 K/uL (130-400)
[2024-08-03 05:08] LABS: Albumin Level 3.7 gm/dl (3.4-5.0); BUN Creatinine Ratio 15.6 (10-20); Calcium 8.7 mg/dl (8.6-10.3); Creatinine Clr Calc Pharmacy 72.7 ml/min; Est GFR (African American) 55.2 ml/min; Est GFR (Non-African American) 47.7 ml/min; Magnesium 1.9 mg/dl (1.7-2.4); Potassium 3.6 mmol/L (3.5-5.1)
[2024-08-03 05:19] LABS: ANTI-Xa, UFH(UnfractionatedHep 0.25 IU/ml (0.3-0.7)
--- NOTE | 2024-08-03 07:33 | Anesthesiology Consultation ---
Date of Service August 03, 2024 Assessment & Plan Chart Review Chart Review: Acceptable Risk for Surgery, Patient NOT seen in Pre Admission Testing and entry level web developer initiated Consults Requested none ASA ASA3 Proposed Anesthesia Anesthesia Type: MAC Risk / Benefits Reviewed With: PT / POA / Parent / Guardian, Accepts Plan and Informed Consent Obtained History Surgery Operation Date: 08/03/24 07:45 Proposed Procedures p Transesophageal Echo w/Anesthesia - Wing Tsai MD s Cardioversion Application Technical Designer w/Anesthesia - Wing Tsai MD Height/Weight Height: 6 ft Weight: 120.344 kg Allergies Allergy/AdvReac Type Severity Reaction Status Date / Time garlic AdvReac Mild ELEVATED Unverified 07/31/24 22:32 BODY TEMP aspartame AdvReac Migraine Verified 07/31/24 22:17 lactose AdvReac Abdominal Verified 07/31/24 22:32 Pain mushroom AdvReac Abdominal Verified 07/31/24 22:32 Pain Medications Home Medications Medication Instructions Recorded Confirmed Last Taken No Known Home Medications 07/31/24 07/31/24 Unknown Active Medications Generic Name Dose Route Start Last Admin Trade Name Freq PRN Reason Stop Dose Admin Heparin Sodium/Dextrose 25,000 units in 500 mls @ 0 mls/hr 08/01/24 00:15 08/03/24 07:13 Heparin Sodium/Dextrose IV 08/31/24 00:14 0 units/hr .Q0M FAISAL 0 mls/hr Titration Protocol 0 UNITS/HR Menthol 1 quan 08/01/24 22:39 08/01/24 22:57 Cough Drop (Sugar Free) Quan 24 Quan/1 Box BUCCAL 08/31/24 22:38 1 quan PRN PRN Administration Sore Throat Metoprolol Tartrate 50 mg 08/02/24 09:00 08/02/24 21:11 Metoprolol Tartrate 50 Mg Tab PO 09/01/24 08:59 50 mg BID FAISAL Administration Ondansetron HCl 4 mg 08/01/24 16:00 08/03/24 04:23 Ondansetron Inj 2 Mg/Ml 2 Ml Vial IV 08/31/24 15:59 Not Given Q6H FAISAL Sacubitril/Valsartan 1 tab 08/02/24 21:00 08/02/24 21:11 Valsartan/Sacubitril 26/24mg Tab PO 09/01/24 20:59 1 tab BID FAISAL Administration NPO Date Last Intake of Fluids: 08/02/24 Time Last Intake of Fluids: 23:59 Date Last Intake of Solids: 08/02/24 Time Last Intake of Solids: 18:00 Past Medical History Medical History Dilatation of thoracic aorta Exercise / Class Metabolic Activity II 4-5 Yardwork/Stairs/Walk up hill Past Anesthesia History No Hx of Anesthesia Complications ( no prev anesthesia) and No Family Hx of Anesthesia Complications History of PONV No Hx of PONV and No Hx of Motion Sickness Social History Smoking Status: Never smoker Hx Alcohol Use: Yes Alcohol type: beer alcohol intake frequency: a few times a month Hx Substance Use: No Physical Exam Vital Signs Last Vital Signs Temp 36.8 C 08/03/24 03:49 Pulse 73 08/03/24 03:49 Resp 16 08/03/24 03:49 BP 187/91 H 08/03/24 03:49 Pulse Ox 96 08/03/24 03:49 O2 Del Method Room Air 08/03/24 03:49 O2 Flow Rate 2 08/01/24 01:24 Constitutional + obese; no acute distress ENMT Mouth: + chipped teeth; no loose teeth Thyromental Distance: > or= 3.5 Finger Breadths Mallampati Class: II Neck normal visual inspection, trachea midline and + facial hair; neck extension not limited Respiratory normal respiratory effort; no respiratory distress Auscultation: lungs clear to auscultation bilaterally; no crackles, no rhonchi and no wheezes Cardiovascular Rate/Rhythm: regular rate; + abnormal rhythm Heart Sounds: no gallop, no murmur and no cardiac rub Musculoskeletal Head/Neck/Chest: full ROM of neck Neurologic moves all extremities and awake Psychiatric Orientation: alert and oriented x 3 Testing Laboratory Results 08/03/24 04:21 08/03/24 04:21 Hemoglobin A1c 6.2 % (4.5-5.6) H 08/02/24 10:31 Urine Color Dark Yellow 08/01/24 01:47 Urine Appearance Clear (Clear) 08/01/24 01:47 Urine pH 5.5 (4.5-7.5) 08/01/24 01:47 Ur Specific [place] 1.028 (1.000-1.030) 08/01/24 01:47 Urine Protein 4+ (Negative) H 08/01/24 01:47 Urine Glucose (UA) Negative (Negative) 08/01/24 01:47 Urine Ketones Trace (Negative) H 08/01/24 01:47 Urine Nitrite Negative (Negative) 08/01/24 01:47 Ur Leukocyte Esterase Negative (Negative) 08/01/24 01:47 Urine WBC (Auto) 0-5 /hpf (0-5) 08/01/24 01:47 Urine RBC (Auto) 0-2 /hpf (0-2) 08/01/24 01:47 U Hyaline Cast (Auto) >20 /lpf (0-2) H 08/01/24 01:47 U Epithel Cells (Auto) 3-5 /hpf (0-2) H 08/01/24 01:47 Urine Bacteria (Auto) None Seen (None Seen) 08/01/24 01:47
--- NOTE | 2024-08-03 09:08 | Cardioversion ---
Date of Service August 03, 2024 PG Electrical Cardioversion Rp Electrical Cardioversion Report Procedure: Elective DC cardioversion Indication: Atrial flutter Informed written consent: Obtained Antiarrhythmic therapy: None Anticoagulation therapy: Heparin drip Sedation: Provided by anesthesiology Imaging: Transesophageal echo performed, without evidence of left atrial thrombus. Timeout: Performed. Procedural details: While remaining sufficiently sedated, 50 J were administered in a synchronized fashion which successfully converted atrial flutter to sinus rhythm. He tolerated the procedure well without known complication. Plan: 1. Continue anticoagulation therapy without interruption for at least 4 weeks. Coding Level of Care Code 22983 CARDIOVERSION, ELECTIVE Additional Codes Electrical Cardioversion Report ([id number])
--- NOTE | 2024-08-03 09:35 | Cardiology Progress Note ---
Date of Service August 03, 2024 Assessment & Plan (1) Acute HFrEF (heart failure with reduced ejection fraction): (2) Atrial fibrillation and flutter: (3) Cardiomyopathy: (4) HTN (hypertension): (5) Elevated troponin: Plan ASSESSMENT/PLAN: 1. Acute heart failure with reduced EF: He appears hypervolemic. Likely due to atrial flutter with rapid ventricular response. NYHA class III. Will administer another dose of Lasix 40 mg IV today. Continue low-dose Entresto. Start spironolactone and SGLT2 inhibitor today. Monitor renal function closely. Replace metoprolol tartrate with carvedilol as he has been having ongoing issues with hypertension. Less than 2000 mg sodium per day. Strict I's and O's (communicated with nursing staff again today as they have not been reported; appreciate Ms. Patiño RN assistance). Daily weights. Heart failure program referral for outpatient medication titration. TSH ok. Monitor renal function and electrolytes. 2. Atrial flutter s/p cardioversion: Feels much better following cardioversion today. Continue anticoagulation for stroke risk reduction. Eliquis initiated this morning. Monitor renal function and CBC. Consider EP evaluation as outpatient to consider possible atrial flutter ablation vs monitoring. 3. Cardiomyopathy: Likely tachycardia induced. Recommend plan as above and if no significant recovery in the next few weeks, would recommend ischemic evaluation and other secondary evaluation as necessary. Medical therapy as above. ICD for primary prevention if EF remains less than 35% after 3 months of optimal therapy. 4. Hypertension: Blood pressure elevated. Initiating goal-directed medical therapy for heart failure as above which should also improve his blood pressure. Replacing metoprolol with carvedilol which should offer better blood pressure control. 5. Elevated troponin: Likely due to demand ischemia in the setting of heart failure and atrial flutter with rapid ventricular response. No definite angina as symptoms are likely related to his heart failure. Low threshold for cardiac catheterization if he does not improve with management of his atrial flutter and heart failure. No urgent indication for cardiac catheterization but we discussed potential in the future if LV systolic function does not improve. 6. Disposition: Cardiology will continue to follow. Plan of care communicated with Dr. Correa of the primary hospitalist service. Admission and Anticipated Discharge Date Admission Date: July 31, 2024 Subjective Patient underwent transesophageal echo and cardioversion today. Overnight, he had some bloating in his abdomen. He has had intermittent shortness of breath and chest tightness. After undergoing cardioversion, he feels much better. He has not had any further bloating and denies chest pain or shortness of breath. He states it is a noticeable difference in sinus rhythm compared to atrial flutter. He denies melena, hematochezia, hematuria, syncope, near syncope, or palpitations. Physical Exam Physical Exam: Gen.: No acute distress. Alert and oriented. HEENT: Anicteric sclera. Neck: Thick neck. Hepatojugular reflux noted. Cardiac: Regular. Normal S1-S2. No murmurs, rubs, or gallops. Pulmonary: Clear to auscultation bilaterally without wheezes, rales, or rhonchi. Abdomen: Soft, nontender, nondistended, with normoactive bowel sounds. No bruits noted. Extremities: 2+ radial pulses bilaterally. 2+ posterior tibialis pulses bilaterally 1-2+ bilateral lower extremity edema. No cyanosis. Psychiatric: Affect appears appropriate. Results & Data Vital Signs (Past 12 Hours) Vital Signs Temp Pulse Pulse Resp BP BP Pulse Ox 08/03/24 07:34 101 H 14 177/119 H 08/03/24 03:49 36.8 C 73 16 187/91 H 96 08/02/24 23:50 36.9 C 88 18 163/120 H 93 08/02/24 22:54 98 H O2 Del Method 08/03/24 07:34 Room Air 08/03/24 03:49 Room Air 08/02/24 23:50 Room Air 08/02/24 22:54 Laboratory Results Laboratory Results - last 24 hr 08/02/24 08/02/24 08/02/24 10:31 11:16 14:26 WBC RBC Hgb Hct MCV MCH MCHC RDW Std Deviation RDW Coeff of Raheem Plt Count MPV Immature Gran % (Auto) Neut % (Auto) Lymph % (Auto) [place] % (Auto) Eos % (Auto) Baso % (Auto) Neut # (Auto) Lymph # (Auto) [place] # (Auto) Eos # (Auto) Baso # (Auto) Immature Gran # (Auto) Heparin Anti-Xa, Unfract 0.23 L Sodium Potassium Chloride Carbon Dioxide Anion Gap BUN Creatinine Est Cr Clr Drug Dosing Est GFR ( Amer) Est GFR (Non-Af Amer) BUN/Creatinine Ratio Glucose Estimat Average Glucose 131 Hemoglobin A1c 6.2 H Calcium Phosphorus Magnesium Troponin I High Sens 81.1 H* D B-Natriuretic Peptide 743 H Total Protein (PEP) Albumin Albumin (PEP) Nalsp-9-Etywbxjzv Cwben-6-Tbscrsbvv Ixst-6-Aojdudww Cfjk-1-Vstjtysd Gamma Globulins Monoclonal Peak 3 Ser Monoclonl Protein Ser Monoclonal Prot 2 PEP Interpretation TSH 1.964 Ur Random Creatinine U Random Total Protein Protein/Creatinin Ratio JOSE ELIAS Screen Anti-Proteinase 3 Anti-Myeloperoxidase ANCA Double Strand DNA Ab Glomerular Base Memb Ab Complement C3 Complement C4 Free Gleed LC, Quant Free Lambda LC, Quant Free Gleed/Lambda Ratio Phospholip A2 Rec IFA Phospholip A2 Rec FITZ 08/02/24 08/02/24 08/03/24 21:20 Unknown 04:21 WBC 8.57 RBC 4.78 Hgb 13.1 L Hct 39.4 L MCV 82.4 MCH 27.4 MCHC 33.2 RDW Std Deviation 45.4 RDW Coeff of Raheem 15.1 H Plt Count 240 MPV 11.5 Immature Gran % (Auto) 0.2 Neut % (Auto) 63.7 Lymph % (Auto) 20.4 [place] % (Auto) 13.3 Eos % (Auto) 1.6 Baso % (Auto) 0.8 Neut # (Auto) 5.45 Lymph # (Auto) 1.75 [place] # (Auto) 1.14 H Eos # (Auto) 0.14 Baso # (Auto) 0.07 Immature Gran # (Auto) 0.02 Heparin Anti-Xa, Unfract 0.25 L 0.25 L Sodium 137 Potassium 3.6 Chloride 99 Carbon Dioxide 30 Anion Gap 8 BUN 26 H Creatinine 1.67 H Est Cr Clr Drug Dosing 72.7 Est GFR ( Amer) 55.2 Est GFR (Non-Af Amer) 47.7 BUN/Creatinine Ratio 15.6 Glucose 108 H Estimat Average Glucose Hemoglobin A1c Calcium 8.7 Phosphorus 3.0 Magnesium 1.9 Troponin I High Sens B-Natriuretic Peptide Total Protein (PEP) Pending Albumin 3.7 Albumin (PEP) Pending Avvdd-1-Kcpivmefi Pending Hthse-3-Lhyjplbcd Pending Qcoe-2-Wgvsuwui Pending Dmub-0-Ubkndoam Pending Gamma Globulins Pending Monoclonal Peak 3 Pending Ser Monoclonl Protein Pending Ser Monoclonal Prot 2 Pending PEP Interpretation Pending TSH Ur Random Creatinine 239.8 U Random Total Protein 339.9 H Protein/Creatinin Ratio 1.4 H JOSE ELIAS Screen Pending Anti-Proteinase 3 Pending Anti-Myeloperoxidase Pending ANCA Pending Double Strand DNA Ab Pending Glomerular Base Memb Ab Pending Complement C3 Pending Complement C4 Pending Free Gleed LC, Quant Pending Free Lambda LC, Quant Pending Free [place]/Lambda Ratio Pending Phospholip A2 Rec IFA Pending Phospholip A2 Rec FITZ Pending Diagnostic Findings Telemetry personally reviewed: Atrial flutter prior to cardioversion and then sinus rhythm. ECG personally reviewed 08/03/2024 at 9:14 AM: Sinus rhythm 72 bpm. RBBB. Transesophageal echo preliminary report 08/03/2024: Reduced LV systolic function. No left atrial appendage thrombus. Mild MR. Formal review to follow. Labs reviewed from 08/03/2024 demonstrating stable hemoglobin, mildly abnormal but stable renal function, normal potassium. Medications Administered Current Inpatient Medications Acetaminophen (Acetaminophen 500 Mg Tab) 1,000 mg PO Q8H PRN PRN Reason: Pain or Fever Stop: 08/31/24 20:59 Apixaban (Apixaban 5 Mg Tablet) 5 mg PO BID FAISAL Stop: 09/02/24 09:29 Last Admin: 08/03/24 11:21 Dose: 5 mg Carvedilol (Carvedilol 12.5 Mg Tab) 12.5 mg PO BIDM FAISAL Stop: 09/02/24 10:04 Last Admin: 08/03/24 11:21 Dose: 12.5 mg Docusate Sodium (Docusate Sodium 100 Mg Cap) 100 mg PO BID FAISAL Stop: 09/02/24 13:44 Empagliflozin (Empagliflozin 10 Mg Tab) 10 mg PO DAILY FAISAL Stop: 09/02/24 09:44 Last Admin: 08/03/24 11:22 Dose: 10 mg Menthol (Cough Drop (Sugar Free) Quan 24 Quan/1 Box) 1 quan BUCCAL PRN PRN PRN Reason: Sore Throat Stop: 08/31/24 22:38 Last Admin: 08/01/24 22:57 Dose: 1 quan Ondansetron HCl (Ondansetron Inj 2 Mg/Ml 2 Ml Vial) 4 mg IV Q6H FAISAL Stop: 08/31/24 15:59 Last Admin: 08/03/24 11:15 Dose: Not Given Sacubitril/Valsartan (Valsartan/Sacubitril 26/24mg Tab) 1 tab PO BID FAISAL Stop: 09/01/24 20:59 Last Admin: 08/03/24 09:54 Dose: 1 tab Sennosides (Senna 8.6 Mg Tab) 8.6 mg PO HS FAISAL Stop: 09/02/24 20:59 Spironolactone (Spironolactone 25 Mg Tab) 25 mg PO QAM FAISAL Stop: 09/02/24 09:44 Last Admin: 08/03/24 11:22 Dose: 25 mg PG Care Time/CCT Total # of Minutes Spent Total Time Spent with Patient: Total time spent is greater than 50% in coordination of care (as documented) at patient's floor/unit and/or counseling patient: Coding Level of Care Code 10679 SUB INP/OBS CARE 3/50MIN Diagnoses Acute HFrEF (heart failure with reduced ejection fraction) I50.21 Atrial fibrillation and flutter I48.91; I48.92 Cardiomyopathy I42.9 HTN (hypertension) I10 Elevated troponin R79.89
[2024-08-03] MEDS: BENZOCAINE/TETRACAIN/BUTAM 50 APPLN/5 GM CAN EXT ONE (09:52)
[2024-08-03] MEDS: POTASSIUM CHLORIDE CRTAB 20 MEQ TABCR PO STA (09:59)
[2024-08-03] MEDS: FUROSEMIDE 40 MG/4 ML VIAL IV ONE (10:00)
[2024-08-03] MEDS: MAGNESIUM SULFATE / D5W 1 GM/100 ML BAG IV ONE (10:00)
--- NOTE | 2024-08-03 10:03 | Anesthesiology Progress Note ---
Date of Service August 03, 2024 Anesthesia Post Procedure Vital Signs Vital Signs: Temp Pulse Pulse Resp BP BP Pulse Ox 08/03/24 09:46 37 C 83 16 161/125 H 95 08/03/24 07:34 101 H 14 177/119 H 08/03/24 03:49 36.8 C 73 16 187/91 H 96 08/02/24 23:50 36.9 C 88 18 163/120 H 93 08/02/24 22:54 98 H 08/02/24 15:03 36.8 C 74 19 146/98 H 99 08/02/24 13:51 100 H 08/02/24 11:50 36.8 C 101 H 20 154/132 H 162/151 H 98 O2 Del Method 08/03/24 09:46 Room Air 08/03/24 07:34 Room Air 08/03/24 03:49 Room Air 08/02/24 23:50 Room Air 08/02/24 22:54 08/02/24 15:03 Room Air 08/02/24 13:51 08/02/24 11:50 Room Air Pain Intensity Chest: Pain Intensity: 5 Transfer of Care Handoff Completed per policy Notes Mental Status: alert / awake / arousable and participated in evaluation Patient Amnestic to Procedure: Yes Nausea / Vomiting: adequately controlled Pain: adequately controlled Airway Patency, RR, SpO2: stable & adequate BP & HR: stable & adequate Hydration State: stable & adequate Anesthetic Complications: no major complications apparent
--- NOTE | 2024-08-03 10:28 | Nephrology Progress Note ---
Date of Service August 03, 2024 Assessment & Plan (1) Proteinuria: (2) MATTHIEU (acute kidney injury): (3) Hypokalemia: (4) HTN (hypertension): (5) Cardiomyopathy: Plan 48 yr old gentleman with no past medical history but has not been to a physician for many years, presented with A flutter with RVR, CHF, severe cardiomyopathy, poorly controlled hypertension, and noted to have abnormal kidney function and high grade proteinuria. Urine analysis was negative for hematuria. Kidney ultrasound was otherwise unremarkable. On admission creatinine was 1.7 mg/dl, which stayed relatively stable from 1.7-1.8 mg/dl since admission. Unclear whether this is truly MATTHIEU or CKD as no prior records available. However, it is quite possible he has underlying CKD secondary to hypertensive nephrosclerosis or cardiorenal syndrome. Possibility for MATTHIUE remains, but seems less likely. Proteinuria could be secondary to CHF or other etiology. Blood pressure remains elevated although slightly improved. On beta-cristina and Entresto. Started on spironolactone and Jardiance this morning. Kidney function staying relatively stable, electrolyte acceptable. -- Waiting on 24 urine collection for better assessment of proteinuria, serology and paraproteinemia workup. -- Okay to continue on Entresto, and if kidney functions stay relatively stable, okay to increase dose as needed. -- Increase carvedilol and spironolactone dose as needed for blood pressure control Admission and Anticipated Discharge Date Admission Date: July 31, 2024 Cornelio Escamilla was seen and evaluated this morning. He just came back after having GUERRERO and cardioversion, staying in sinus rhythm, rate much better controlled. Overall he reports feeling a lot better since the cardioversion. Abdominal discomfort, bloating and feeling of shortness of breath almost resolved. Blood pressure remain elevated. Kidney function staying relatively stable, electrolyte acceptable. Review of Systems Review of Systems: Detailed review of system was otherwise unremarkable except mentioned above. Physical Exam Constitutional: WD/WN, vitals as above no acute distress Eyes: + anicteric sclerae Respiratory: no respiratory distress Cardiovascular: Heart Sounds: normal S1 and normal S2 Musculoskeletal: Extremities: extremities normal to inspection Skin: no rashes, warm and dry Neurologic: no focal motor deficits Psychiatric: Orientation: alert and oriented x 3 Affect: euthymic affect Results & Data Vital Signs (Past 12 Hours) Vital Signs Temp Pulse Pulse Resp BP BP Pulse Ox 08/03/24 10:17 37 C 85 17 180/130 H 96 08/03/24 10:02 36.9 C 84 16 171/124 H 96 08/03/24 09:46 37 C 83 16 161/125 H 95 08/03/24 09:30 75 14 120/92 92 08/03/24 09:15 76 14 136/95 92 08/03/24 09:00 78 14 120/92 92 08/03/24 07:34 101 H 14 177/119 H 08/03/24 03:49 36.8 C 73 16 187/91 H 96 08/02/24 23:50 36.9 C 88 18 163/120 H 93 08/02/24 22:54 98 H O2 Del Method 08/03/24 10:17 Room Air 08/03/24 10:02 Room Air 08/03/24 09:46 Room Air 08/03/24 09:30 Room Air 08/03/24 09:15 Room Air 08/03/24 09:00 Room Air 08/03/24 07:34 Room Air 08/03/24 03:49 Room Air 08/02/24 23:50 Room Air 08/02/24 22:54 PG Care Time/CCT Total # of Minutes Spent Total Time Spent with Patient: Total time spent is greater than 50% in coordination of care (as documented) at patient's floor/unit and/or counseling patient: Coding Level of Care Code 17624 SUB INP/OBS CARE 2/35MIN Diagnoses Proteinuria R80.9 MATTHIEU (acute kidney injury) N17.9 Hypokalemia E87.6 HTN (hypertension) I10 Cardiomyopathy I42.9
[2024-08-03 11:21] LABS: Appearance Urine Clear (Clear); Bilirubin Urine Negative (Negative); Blood Urine Negative (Negative); Color Urine Yellow; Glucose Urine UA Negative (Negative); Ketones Urine Negative (Negative); Leukocyte Esterase Urine Negative (Negative); Nitrite Urine Negative (Negative); Protein Urine Negative (Negative); Specific Gravity Urine 1.006 (1.000-1.030); Urobilinogen Urine Negative (Negative); pH Urine 7.5 (4.5-7.5)
[2024-08-03] MEDS: carvediloL 12.5 MG TAB PO SCH (11:21)
[2024-08-03] MEDS: APIXABAN 5 MG TABLET PO SCH (11:21)
[2024-08-03] MEDS: SPIRONOLACTONE 25 MG TAB PO SCH (11:22)
[2024-08-03] MEDS: EMPAGLIFLOZIN 10 MG TAB PO SCH (11:22)
--- NOTE | 2024-08-03 13:42 | Hospitalist Progress Note ---
Date of Service August 03, 2024 Assessment & Plan (1) Atrial fibrillation and flutter: Plan: Presented in rapid atrial flutter with rates in the 120s-130s. This is a new diagnosis,he has been asymptomatic until developed heart failure symptoms over the last week prior to admission TSH checked and normal at 1.9 Now s/p GUERRERO and successful electric cardioversion on 08/03. Is now in SNR rates 80s Convert heparin drip to Eliquis 5mg po bid for stroke prevention -needs cost savings cards prior to discharge Started metoprolol tartrate 50 Mg p.o. twice daily but needs improved BP control--> change to Coreg 12.5mg po bid Possible need for atrial flutter ablation in the future Continue tele monitoring (2) Acute HFrEF (heart failure with reduced ejection fraction): Plan: Presented with rapid 8 lb weight gain, lower extremity edema, abdominal bloating, SOB, CXR w/ pulmonary edema and cardiomegaly. With significant hypertension and with rapid atrial flutter. BNP elevated at 743. Echocardiogram with global hypokinesis and LVEF 25-30%, mild MR, mildly dilated thoracic aortic aneurysm at 3.7 cm Possibly cardiomyopathy from tachyarrhythmia. Less likely ischemic CM. TSH normal. Troponin elevated/peaked at 147 Now s/p cardioversion to sinus rhythm Started Entresto Now switching beta cristina to Coreg 12.5mg po bid Add Jardiance 10mg daily and spironolactone 25mg daily Plan to start SGLT2 inhibitor later this hospital stay or as outpt if renal function remains stable with other med changes Remains volume overloaded--> give another dose lasix 40mg IV daily Follow BMP, magnesium and keep electrolytes optimized-give po KCL 20 meq and 1 gram IV mag today Continue Daily weights, low-sodium diet, strict I's and O's Follow echocardiogram in future and place ICD for primary prevention if EF r emains less than 35% after 3 months of optimal therapy (3) HTN (hypertension): Plan: Hypertensive on presentation, likely has been hypertensive for a period of time. He reports treatment for hypertension at age 33 approximately with lisinopril but lost 30 to 40 pounds of weight and his blood pressures improved at that time. He has not been seen by since then but has been told his blood pressure has been high at urgent care visits Blood pressures are now improving with starting beta cristina, Entresto,and giving Lasix Now starting jardiance, spironolactone Follow blood pressures (4) MATTHIEU (acute kidney injury): Plan: MATTHIEU vs CKD-there is no baseline for comparison. Most likely this is chronic as sample color maker remaining fairly stable the last several days. He does have 4+ proteinuria on urinalysis. Could be hypertensive nephrosclerosis. Hemoglobin A1c only in the prediabetes range He is making urine and no other electrolyte abnormalities. He is volume overloaded as above with heart failure and rapid atrial flutter He was initially given IV fluids but now giving Lasix for heart failure and volume overload as above Creatinine as high as 1.79 but improved with diuresis to 1.67 Consult nephrology appreciated-checking for primary paraproteinemia, 24 hr urine protein other serologies Control BP. Is now in sinus rhythm and rates are better controlled Follow BMP daily (5) Proteinuria: Plan: 4+ urinalysis, checking 24-hour urine protein given renal failure as above (6) Hypokalemia: Plan: Mildly low again-replace cautiously given CKD--> give 20 meq po KCl today Follow BMP, magnesium starting spironolactone (7) Elevated troponin: Plan: trop 113-> 129 and peaked at 147 ECG without definite ischemic changes but show right bundle branch block and possible inferior TWIs Cardiology recommends low threshold for cardiac catheterization if his LVEF does not improve with management of his atrial flutter and heart failure This is most likely due to myocardial demand ischemia in the setting of acute HFrEF and renal failure along with rapid atrial flutter (8) Dilatation of thoracic aorta: Plan: Noted to be 3.7 cm of the ascending thoracic aorta Needs improved control of hypertension Follow with echocardiogram at least annually (9) Prediabetes: Plan: Hemoglobin A1c here elevated at 6.2% in the prediabetes range Needs low carbohydrate diet and weight loss Monitor as an outpatient with PCP Plan Code: Full VTE Prophylaxis: Heparin gtt now converted to Eliquis Disposition-continued stay on PCU Discussed care with sister and 2 friends at the bedside on 08/03 Admission and Anticipated Discharge Date Admission Date: July 31, 2024 Subjective Pt had cardioversion this AM which was successful. He reports feeling immensely better with being in a normal heart rhythm. He feels like he is able to get a deeper breath today. Is making plenty of urine. Still no BM and feeling a little bloated, requesting stool softener. No chest pain or SOB I discussed his care with Cardiology Tele with atrial flutter 110s overnight and now NSR rates in 80s Physical Exam Constitutional: WD/WN, vitals as above + obese Neck: trachea midline, no thyromegaly Respiratory: normal respiratory effort, lungs clear to auscultation Cardiovascular: Rate/Rhythm: regular rate and regular rhythm Extremities: + edema (1+ pitting edema of the legs bilaterally to the knees, improved) Chest (Breasts): Chest: normal inspection of chest Musculoskeletal: Extremities: no cyanosis and no clubbing Skin: no rashes, warm and dry Neurologic: moves all extremities and awake; no focal motor deficits Psychiatric: A+Ox3, euthymic affect Results & Data Results & Data Vital Signs (Past 12 Hours) Vital Signs Temp Pulse Pulse Resp BP BP Pulse Ox 08/03/24 13:27 78 147/100 H 94 08/03/24 11:30 37 C 84 16 184/142 H 95 08/03/24 11:01 36.8 C 83 17 186/145 H 97 08/03/24 10:51 80 08/03/24 10:32 37 C 83 16 184/141 H 97 08/03/24 10:17 37 C 85 17 180/130 H 96 08/03/24 10:02 36.9 C 84 16 171/124 H 96 08/03/24 09:46 37 C 83 16 161/125 H 95 08/03/24 09:30 75 14 120/92 92 08/03/24 09:15 76 14 136/95 92 08/03/24 09:00 78 14 120/92 92 08/03/24 07:34 101 H 14 177/119 H 08/03/24 07:00 82 08/03/24 03:49 36.8 C 73 16 187/91 H 96 O2 Del Method 08/03/24 13:27 Room Air 08/03/24 11:30 Room Air 08/03/24 11:01 Room Air 08/03/24 10:51 08/03/24 10:32 Room Air 08/03/24 10:17 Room Air 08/03/24 10:02 Room Air 08/03/24 09:46 Room Air 08/03/24 09:30 Room Air 08/03/24 09:15 Room Air 08/03/24 09:00 Room Air 08/03/24 07:34 Room Air 08/03/24 07:00 08/03/24 03:49 Room Air Laboratory Results CBC, BMP, magnesium reviewed PG Care Time/CCT Total # of Minutes Spent Total Time Spent with Patient: Total time spent is greater than 50% in coordination of care (as documented) at patient's floor/unit and/or counseling patient: Coding Level of Care Code 18669 SUB INP/OBS CARE 3/50MIN Diagnoses Atrial fibrillation and flutter I48.91; I48.92 Acute HFrEF (heart failure with reduced ejection fraction) I50.21 HTN (hypertension) I10 MATTHIEU (acute kidney injury) N17.9 Proteinuria R80.9 Hypokalemia E87.6 Elevated troponin R79.89 Dilatation of thoracic aorta I77.810 Prediabetes R73.03
--- NOTE | 2024-08-03 14:20 | XCELERA ---
[id number]
[2024-08-03] MEDS: DOCUSATE SODIUM 100 MG CAP PO SCH (14:48)
[2024-08-03 18:21] LABS: Urine Total Protein 43.5 mg/dl
--- NOTE | 2024-08-03 20:59 | Electrocardiogram Report ---
Test Reason : Blood Pressure : */* mmHG Vent. Rate : 96 BPM Atrial Rate : 87 BPM P-R Int : 206 ms QRS Dur : 156 ms QT Int : 424 ms P-R-T Axes : 65 32 247 degrees QTcB Int : 535 ms Atrial flutter with premature ventricular or aberrantly conducted complexes Right bundle branch block T wave abnormality, consider inferolateral ischemia Abnormal ECG When compared with ECG of 31-Jul-2024 21:44, No significant change Confirmed by Wing Tsai ([id number]) on 08/03/2024 8:59:00 PM Referred By: REFERRED SELF Confirmed By: Wing Tsai
--- NOTE | 2024-08-03 20:59 | Electrocardiogram Report ---
Test Reason : Blood Pressure : */* mmHG Vent. Rate : 130 BPM Atrial Rate : 260 BPM P-R Int : * ms QRS Dur : 170 ms QT Int : 402 ms P-R-T Axes : 252 18 -67 degrees QTcB Int : 591 ms Atrial flutter with 2:1 A-V conduction Right bundle branch block Septal infarct , age undetermined Abnormal ECG When compared with ECG of 01-Aug-2024 05:45, T wave inversion less evident in Anterolateral leads Confirmed by Wing Tsai ([id number]) on 08/03/2024 8:59:33 PM Referred By: REFERRED SELF Confirmed By: Wing Tsai
[2024-08-03] MEDS: SENNA 8.6 MG TAB PO SCH (21:00)
--- NOTE | 2024-08-03 21:00 | Electrocardiogram Report ---
Test Reason : Blood Pressure : */* mmHG Vent. Rate : 105 BPM Atrial Rate : 249 BPM P-R Int : * ms QRS Dur : 174 ms QT Int : 430 ms P-R-T Axes : * 31 104 degrees QTcB Int : 568 ms Atrial flutter with variable A-V block Right bundle branch block T wave abnormality, consider anterolateral ischemia Septal infarct Abnormal ECG When compared with ECG of 01-Aug-2024 19:37, T wave inversion more evident in Anterolateral leads Confirmed by Wing Tsai ([id number]) on 08/03/2024 9:00:13 PM Referred By: REFERRED SELF Confirmed By: Wing Tsai
--- NOTE | 2024-08-03 21:01 | Electrocardiogram Report ---
Test Reason : Blood Pressure : */* mmHG Vent. Rate : 72 BPM Atrial Rate : 72 BPM P-R Int : 164 ms QRS Dur : 182 ms QT Int : 456 ms P-R-T Axes : 27 10 263 degrees QTcB Int : 499 ms Normal sinus rhythm with sinus arrhythmia Possible Left atrial enlargement Right bundle branch block Possible Septal infarct T wave abnormality, consider anterolateral ischemia Abnormal ECG When compared with ECG of 02-Aug-2024 06:16, Sinus rhythm has replaced Atrial flutter Confirmed by Wing Tsai ([id number]) on 08/03/2024 9:00:53 PM Referred By: REFERRED SELF Confirmed By: Wing Tsai
[2024-08-04 01:16] LABS: Total Protein 24 Hour Urine 1935.8 mg/24 Hr (0-149.1)
[2024-08-04 08:20] LABS: BUN Creatinine Ratio 15.3 (10-20); Calcium 9.3 mg/dl (8.6-10.3); Est GFR (African American) 59.5 ml/min; Est GFR (Non-African American) 51.4 ml/min; Potassium 4.3 mmol/L (3.5-5.1)
--- NOTE | 2024-08-04 09:34 | Cardiology Progress Note ---
Date of Service August 04, 2024 Assessment & Plan (1) Acute HFrEF (heart failure with reduced ejection fraction): (2) Atrial fibrillation and flutter: (3) Cardiomyopathy: (4) HTN (hypertension): (5) Elevated troponin: Plan ASSESSMENT/PLAN: 1. Acute heart failure with reduced EF: Hypervolemic. NYHA class II (improved). Likely due to atrial flutter with rapid ventricular response. Will order Lasix 80 mg IV today and daily lasix tomorrow. Continue Entresto, spironolactone and SGLT2 inhibitor. Monitor renal function closely. Continue carvedilol. Less than 2000 mg sodium per day. Strict I's and O's. Daily weights. Heart failure program referral for outpatient medication titration. TSH ok. Monitor renal function and electrolytes. 2. Atrial flutter s/p cardioversion: Feels much better following cardioversion on 08/03/24. Continue anticoagulation for stroke risk reduction. Eliquis initiated. Monitor renal function and CBC. Consider EP evaluation as outpatient to consider possible atrial flutter ablation vs monitoring. 3. Cardiomyopathy: Likely tachycardia induced. Recommend plan as above and if no significant recovery in the next few weeks, would recommend ischemic evaluation and other secondary evaluation as necessary. Medical therapy as a elida. ICD for primary prevention if EF remains less than 35% after 3 months of optimal therapy. 4. Hypertension: Blood pressure elevated. Goal-directed medical therapy for heart failure as above which should also improve his blood pressure. Spironolactone increased today by nephrology. 5. Elevated troponin: Likely due to demand ischemia in the setting of heart failure and atrial flutter with rapid ventricular response. No angina as symptoms were likely related to his heart failure/atrial flutter. Low threshold for cardiac catheterization if he does not improve with management of his atrial flutter and heart failure. No urgent indication for cardiac catheterization but we discussed potential in the future if LV systolic function does not improve. 6. Disposition: Cardiology will continue to follow. Plan of care discussed with Dr. Correa of the primary hospitalist service. Admission and Anticipated Discharge Date Admission Date: July 31, 2024 Subjective He continues to feel better following cardioversion. He is now walking in the hallways and can do several laps. He still has mild dyspnea on exertion, but much improved. He denies chest tightness. He denies melena, hematochezia, hematuria, syncope, or near syncope. He was unaccompanied today. Physical Exam Physical Exam: Gen.: No acute distress. Alert and oriented. HEENT: Anicteric sclera. Neck: Thick neck. Elevated JVD. Hepatojugular reflux noted. Cardiac: Regular. Normal S1-S2. 1/6 systolic murmur. Pulmonary: Clear to auscultation bilaterally without wheezes, rales, or rhonchi. Abdomen: Soft, nontender, nondistended, with normoactive bowel sounds. No bruits noted. Extremities: 2+ radial pulses bilaterally. 2+ posterior tibialis pulses bilaterally 2+ bilateral lower extremity edema. No cyanosis. Psychiatric: Affect appears appropriate. Results & Data Vital Signs (Past 12 Hours) Vital Signs Temp Pulse Pulse Resp BP BP Pulse Ox 08/04/24 07:58 36.7 C 78 20 191/131 H 99 08/04/24 06:40 72 08/04/24 03:51 36.4 C L 73 22 158/114 H 97 08/03/24 23:27 36.7 C 74 20 146/104 H 97 08/03/24 23:00 72 08/03/24 22:52 110 H O2 Del Method 08/04/24 07:58 Room Air 08/04/24 06:40 08/04/24 03:51 Room Air 08/03/24 23:27 Room Air 08/03/24 23:00 08/03/24 22:52 Intake & Output 08/02/24 08/03/24 08/04/24 08/05/24 06:59 06:59 06:59 06:59 Intake Total 2106.000 / 2106.000 1149.333 / 7068.032 5645.667 / 1674.667 Output Total 0 / 0 2650 / 2650 Balance 2106.000 / 2106.000 1149.333 / 1149.333 -975.333 / -975.333 Weight 267 lb 4.8 oz 265 lb 5 oz 258 lb 6.108 oz Laboratory Results Laboratory Results - last 24 hr 08/03/24 08/03/24 08/04/24 11:07 17:00 06:58 Sodium 141 Potassium 4.3 Chloride 103 Carbon Dioxide 31 Anion Gap 7 BUN 24 H Creatinine 1.57 H Est Cr Clr Drug Dosing 76.0 Est GFR ( Amer) 59.5 Est GFR (Non-Af Amer) 51.4 BUN/Creatinine Ratio 15.3 Glucose 94 Calcium 9.3 Magnesium 2.0 Urine Color Yellow Urine Appearance Clear Urine pH 7.5 Ur Specific [place] 1.006 Urine Protein Negative Urine Glucose (UA) Negative Urine Ketones Negative Urine Blood Negative Urine Nitrite Negative Urine Bilirubin Negative Urine Urobilinogen Negative Ur Leukocyte Esterase Negative U Random Total Protein Pending Urine Total Volume 4450 Ur Creatinine mg/dL Pending Ur Total Protein 24 Hr 1935.8 H Protein/Creatinin Ratio Pending Urine Total Protein 43.5 Urine Albumin (%) Pending U Gveum-1-Eaxybpbp (%) Pending U Cqkmg-8-Rkzarpoi (%) Pending U Beta Globulin (%) Pending U Gamma Globulin (%) Pending U Abnormal Prot Band 1 Pending U Abnormal Prot Band 2 Pending U Abnormal Prot Band 3 Pending Urine PEP Interpret Pending Diagnostic Findings Labs reviewed from 08/04/2024 and notable for stable renal function, normal potassium. Telemetry personally reviewed: Sinus rhythm. 7 beat run of VT. Medications Administered Current Inpatient Medications Acetaminophen (Acetaminophen 500 Mg Tab) 1,000 mg PO Q8H PRN PRN Reason: Pain or Fever Stop: 08/31/24 20:59 Apixaban (Apixaban 5 Mg Tablet) 5 mg PO BID [facility] Stop: 09/02/24 09:29 Last Admin: 08/04/24 08:10 Dose: 5 mg Carvedilol (Carvedilol 12.5 Mg Tab) 12.5 mg PO BIDM [facility] Stop: 09/02/24 10:04 Last Admin: 08/04/24 08:08 Dose: 12.5 mg Docusate Sodium (Docusate Sodium 100 Mg Cap) 100 mg PO BID [facility] Stop: 09/02/24 13:44 Last Admin: 08/04/24 08:15 Dose: 100 mg Empagliflozin (Empagliflozin 10 Mg Tab) 10 mg PO DAILY [facility] Stop: 09/02/24 09:44 Last Admin: 08/04/24 08:10 Dose: 10 mg Menthol (Cough Drop (Sugar Free) Quan 24 Quan/1 Box) 1 quan BUCCAL PRN PRN PRN Reason: Sore Throat Stop: 08/31/24 22:38 Last Admin: 08/01/24 22:57 Dose: 1 quan Ondansetron HCl (Ondansetron Inj 2 Mg/Ml 2 Ml Vial) 4 mg IV Q6H [facility] Stop: 08/31/24 15:59 Last Admin: 08/04/24 03:06 Dose: Not Given Sacubitril/Valsartan (Valsartan/Sacubitril 26/24mg Tab) 1 tab PO BID [facility] Stop: 09/01/24 20:59 Last Admin: 08/04/24 08:12 Dose: 1 tab Sennosides (Senna 8.6 Mg Tab) 8.6 mg PO HS [facility] Stop: 09/02/24 20:59 Last Admin: 08/03/24 21:00 Dose: 8.6 mg Spironolactone (Spironolactone 100 Mg Tab) 100 mg PO QAM [facility] Stop: 09/04/24 08:59 PG Care Time/CCT Total # of Minutes Spent Total Time Spent with Patient: Total time spent is greater than 50% in coordination of care (as documented) at patient's floor/unit and/or counseling patient: Coding Level of Care Code 86051 SUB INP/OBS CARE 3/50MIN Diagnoses Acute HFrEF (heart failure with reduced ejection fraction) I50.21 Atrial fibrillation and flutter I48.91; I48.92 Cardiomyopathy I42.9 HTN (hypertension) I10 Elevated troponin R79.89
[2024-08-04] MEDS: amLODIPine BESYLATE 5 MG TAB PO ONE (10:10)
[2024-08-04] MEDS: SPIRONOLACTONE 25 MG TAB PO ONE (10:11)
--- NOTE | 2024-08-04 10:52 | Nephrology Progress Note ---
Date of Service August 04, 2024 Assessment & Plan (1) Proteinuria: (2) MATTHIEU (acute kidney injury): (3) Hypokalemia: (4) HTN (hypertension): (5) Cardiomyopathy: Plan 48 yr old gentleman with no past medical history but has not been to a physician for many years, presented with A flutter with RVR, CHF, severe cardiomyopathy, poorly controlled hypertension, and noted to have abnormal kidney function and high grade proteinuria. Urine analysis was negative for hematuria. Kidney ultrasound was otherwise unremarkable. On admission creatinine was 1.7 mg/dl, which stayed relatively stable from 1.7-1.8 mg/dl since admission. Unclear whether this is truly MATTHIEU or CKD as no prior records available. However, it is quite possible he has underlying CKD secondary to hypertensive nephrosclerosis or cardiorenal syndrome. Possibility for MATTHIEU remains, but seems less likely. Proteinuria could be secondary to CHF or other etiology. 24-hour urine showed proteinuria of 2 g. Blood pressure remains elevated, on beta-cristina and Entresto, spironolactone and Jardiance this morning. Kidney function staying relatively stable, electrolyte acceptable. -- Waiting on serology and paraproteinemia workup. -- Okay to continue on Entresto, and if kidney functions stay relatively stable, okay to increase dose as needed. -- Increase spironolactone to 100 mg daily. Increasing carvedilol -- Will get a renal Doppler Admission and Anticipated Discharge Date Admission Date: July 31, 2024 Cornelio Escamilla was seen and evaluated this morning. He wads walking around the hallway, feeling well. s/p GUERRERO and cardioversion on 08/03, staying in sinus rhythm, rate much better controlled. Overall he reports feeling a lot better. Blood pressure remain elevated. Kidney function staying relatively stable, electrolyte acceptable. Review of Systems Review of Systems: Detailed review of system was otherwise unremarkable except mentioned above. Physical Exam Constitutional: WD/WN, vitals as above no acute distress Eyes: + anicteric sclerae Respiratory: no respiratory distress Cardiovascular: Rate/Rhythm: regular rate and + tachycardic Heart Sounds: normal S1 and normal S2 Extremities: no edema Musculoskeletal: Extremities: extremities normal to inspection Skin: no rashes, warm and dry Neurologic: no focal motor deficits Psychiatric: Orientation: alert and oriented x 3 Affect: euthymic affect Results & Data Vital Signs (Past 12 Hours) Vital Signs Temp Pulse Pulse Resp BP BP Pulse Ox 08/04/24 07:58 36.7 C 78 20 191/131 H 99 08/04/24 06:40 72 08/04/24 03:51 36.4 C L 73 22 158/114 H 97 08/03/24 23:27 36.7 C 74 20 146/104 H 97 08/03/24 23:00 72 08/03/24 22:52 110 H O2 Del Method 08/04/24 07:58 Room Air 08/04/24 06:40 08/04/24 03:51 Room Air 08/03/24 23:27 Room Air 08/03/24 23:00 08/03/24 22:52 PG Care Time/CCT Total # of Minutes Spent Total Time Spent with Patient: Total time spent is greater than 50% in coordination of care (as documented) at patient's floor/unit and/or counseling patient: Coding Level of Care Code 48390 SUB INP/OBS CARE 2/35MIN Diagnoses Proteinuria R80.9 MATTHIEU (acute kidney injury) N17.9 Hypokalemia E87.6 HTN (hypertension) I10 Cardiomyopathy I42.9
[2024-08-04] MEDS ORDERED: ONDANSETRON INJ 2 MG/ML 2 ML VIAL IV PRN (10:58)
--- NOTE | 2024-08-04 13:39 | Hospitalist Progress Note ---
Date of Service August 04, 2024 Assessment & Plan (1) Atrial fibrillation and flutter: Plan: Presented in rapid atrial flutter with rates in the 120s-130s. This is a new diagnosis,he has been asymptomatic until developed heart failure symptoms over the last week prior to admission. Unclear when rapid aflutter started. TSH checked and normal at 1.9 Now s/p GUERRERO and successful electric cardioversion on 08/03. Remains in NSRsince that time with rates 80s, some PVCs, 7 beats VT 08/03,some bigem Continue Eliquis 5mg po bid for stroke prevention -has received cost savings card Continue Coreg 12.5mg po bid Possible need for atrial flutter ablation in the future Continue tele monitoring (2) Acute HFrEF (heart failure with reduced ejection fraction): Plan: Presented with rapid 8 lb weight gain, lower extremity edema, abdominal bloating, SOB, CXR w/ pulmonary edema and cardiomegaly. With significant hypertension and with rapid atrial flutter. BNP elevated at 743. Echocardiogram with global hypokinesis and LVEF 25-30%, mild MR, mildly dilated thoracic aortic aneurysm at 3.7 cm Possibly cardiomyopathy from tachyarrhythmia. Less likely ischemic CM. TSH normal. Troponin elevated/peaked at 147 Now s/p cardioversion to sinus rhythm. GUERRERO showed EF 35-40%, severe LVH, no CAREN thrombus, mod dilated RV with moderate RV dysfunction, mild Pulm HTN Started Entresto, Coreg 12.5mg po bid, Jardiance 10mg daily and spironolactone 25mg daily--> Nephro increased aldactone to 100mg daily Plan to start SGLT2 inhibitor later this hospital stay or as outpt if renal function remains stable with other med changes Remains volume overloaded--> give another dose lasix 80mg IV x 1 today BP control as below Follow BMP, magnesium and keep electrolytes optimized-no replacement needed today Continue Daily weights, low-sodium diet, strict I's and O's Follow echocardiogram in future and place ICD for primary prevention if EF remains less than 35% after 3 months of optimal therapy (3) HTN (hypertension): Plan: Hypertensive on presentation, likely has been hypertensive for a period of time. He reports treatment for hypertension at age 33 approximately with lisinopril but lost 30 to 40 pounds of weight and his blood pressures improved at that time. He has not been seen by since then but has been told his blood pressure has been high at urgent care visits Blood pressures remain quite elevated still despite starting Coreg, Entresto, Jardiance, spironolactone, and giving Lasix Increase spironolactone to 100mg daily Follow blood pressures and continue to up titrate meds as needed (4) MATTHIEU (acute kidney injury): Plan: MATTHIEU vs CKD-there is no baseline for comparison. 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 Hemoglobin A1c only in the prediabetes range He is making urine and no other electrolyte abnormalities. He is volume overl oaded as above with heart failure and rapid atrial flutter Giving Lasix for heart failure and volume overload as above Creatinine as high as 1.79 but improved with diuresis to 1.5 Consult nephrology appreciated-checking for primary paraproteinemia, other serologies (JOSE ELIAS,complements,etc) Control BP. Is now in sinus rhythm and rates are better controlled Follow BMP daily Check Renal Doppler (5) Proteinuria: Plan: 4+ urinalysis, repeat UA no protein 24 hr urine prot 2 grams SPEP,UPEP, light chains pending (6) Hypokalemia: Plan: now normalized and on higher doses of spironolactone now Follow BMP, magnesium (7) Elevated troponin: Plan: trop 113-> 129 and peaked at 147 ECG without definite ischemic changes but show right bundle branch block and possible inferior TWIs Cardiology recommends low threshold for cardiac catheterization if his LVEF does not improve with management of his atrial flutter and heart failure This is most likely due to myocardial demand ischemia in the setting of acute HFrEF and renal failure along with rapid atrial flutter (8) Dilatation of thoracic aorta: Plan: Noted to be 3.7 cm of the ascending thoracic aorta Needs improved control of hypertension Follow with echocardiogram at least annually (9) Prediabetes: Plan: Hemoglobin A1c here elevated at 6.2% in the prediabetes range Needs low carbohydrate diet and weight loss Monitor as an outpatient with PCP Plan Code: Full VTE Prophylaxis: Eliquis Disposition-continued stay on PCU, likely in hospital at least 2 more days Admission and Anticipated Discharge Date Admission Date: July 31, 2024 Subjective Pt reports less SHELLEY now. He had a large BM today. No chest pains. I discussed his care with Cardiology at the bedside Tele with NSR IVCD rates 60-80s, some bigem, PVCs and a 7 beat run VT Physical Exam Constitutional: WD/WN, vitals as above + obese Neck: trachea midline, no thyromegaly Respiratory: normal respiratory effort, lungs clear to auscultation Cardiovascular: Rate/Rhythm: regular rate and regular rhythm Extremities: + edema (2+ pitting edema of the legs bilaterally to the knees) Chest (Breasts): Chest: normal inspection of chest Musculoskeletal: Extremities: no cyanosis and no clubbing Skin: no rashes, warm and dry Neurologic: moves all extremities and awake; no focal motor deficits Psychiatric: A+Ox3, euthymic affect Results & Data Results & Data Vital Signs (Past 12 Hours) Vital Signs Temp Pulse Pulse Resp BP BP Pulse Ox 08/04/24 11:30 36.7 C 66 18 158/114 H 96 08/04/24 07:58 36.7 C 78 20 191/131 H 99 08/04/24 06:40 72 08/04/24 03:51 36.4 C L 73 22 158/114 H 97 O2 Del Method 08/04/24 11:30 Room Air 08/04/24 07:58 Room Air 08/04/24 06:40 08/04/24 03:51 Room Air Laboratory Results BMP, magnesium, 24 hr urine protein reviewed PG Care Time/CCT Total # of Minutes Spent Total Time Spent with Patient: Total time spent is greater than 50% in coordination of care (as documented) at patient's floor/unit and/or counseling patient: Coding Level of Care Code 50685 SUB INP/OBS CARE 3/50MIN Diagnoses Atrial fibrillation and flutter I48.91; I48.92 Acute HFrEF (heart failure with reduced ejection fraction) I50.21 HTN (hypertension) I10 MATTHIEU (acute kidney injury) N17.9 Proteinuria R80.9 Hypokalemia E87.6 Elevated troponin R79.89 Dilatation of thoracic aorta I77.810 Prediabetes R73.03
[2024-08-04] MEDS: FUROSEMIDE 40 MG/4 ML VIAL IV ONE (14:17)
--- NOTE | 2024-08-04 17:59 | Ultrasound Report ---
US duplex renal art/vein BI CLINICAL HISTORY: resistant hypertension TECHNIQUE: Real-time grayscale and color and spectral Doppler ultrasound imaging of the kidneys was p erformed. Comparison: Comparison is made to renal ultrasound 08/02/2024 FINDINGS: Right kidney measures 12.0 cm. Left kidney measures 13.4 cm. RIGHT: The right kidney is normal in size, contour, cortical thickness, and echogenicity. No hydronephrosis is identified. No renal lesion is identified. Spectral analysis: Intrarenal resistive indices measure up to 0.66. Waveforms are normal in appearance.. Renal artery ve locities and waveforms are normal. Renal vein patent. LEFT: The left kidney is normal in size, contour, cortical thickness and echogenicity. No hydronephrosis i s identified. No renal lesion is identified. Spectral analysis: Intrarenal resistive indices measure up to 0.67. Waveforms are normal in appearance. Renal artery anny ocities and waveforms are normal. Renal vein patent. Abdominal aorta: Patent. Peak systolic velocity 75 cm/s. Reference ranges: Normal main renal artery peak systolic velocity less than 180 cm/s. Ratio of renal artery PSV to aort ic PSV less than 3.5 equates to normal or less than 60% stenosis. Only one of the two criteria listed needs to be met for diagnosis. Arcuate resistive indices about 0.8 are elevated. IMPRESSION: No evidence of renal artery stenosis. ACT 112: Negative or not required by law. Electronically signed by: Darrell Newman M.D. 08/04/2024 5:58 PM
[2024-08-05] MEDS: SPIRONOLACTONE 100 MG TAB PO SCH (08:12)
[2024-08-05] MEDS: FUROSEMIDE 40 MG/4 ML VIAL IV SCH ×2 (08:13→18:09)
[2024-08-05 09:12] LABS: Creatinine Ur 18 mg/dL (20-320); Protein, Urine Random 13 mg/dL (5-25); Ur Protein/Creat Ratio mg/g 722 mg/g creat (25-148); Urine Abnormal Protein Band 1 DNR mg/dL (NONE DETECTED); Urine Abnormal Protein Band 2 DNR mg/dL (NONE DETECTED); Urine Abnormal Protein Band 3 DNR mg/dL (NONE DETECTED); Urine Protein/Creatinine Ratio 0.722 (0.025-0.148)
[2024-08-05 10:13] LABS: Calcium 9.7 mg/dl (8.6-10.3); Potassium 3.9 mmol/L (3.5-5.1)
[2024-08-05 10:18] LABS: BUN Creatinine Ratio 15.9 (10-20); Creatinine Clr Calc Pharmacy 77.7 ml/min; Est GFR (African American) 62.4 ml/min; Est GFR (Non-African American) 53.8 ml/min
--- NOTE | 2024-08-05 11:45 | Cardiology Progress Note ---
Date of Service August 05, 2024 Assessment & Plan (1) Acute HFrEF (heart failure with reduced ejection fraction): (2) Atrial fibrillation and flutter: (3) Cardiomyopathy: (4) HTN (hypertension): (5) Elevated troponin: Plan ASSESSMENT/PLAN: 1. Acute heart failure with reduced EF: Hypervolemia improving. NYHA class II (improved). Likely due to atrial flutter with rapid ventricular response. Had very good diuresis with Lasix 80 mg IV x 1 yesterday. Will increase Lasix to 40 mg IV twice daily. Continue Entresto, spironolactone and SGLT2 inhibitor. Monitor renal function closely. Continue carvedilol. Increase Entresto. Less than 2000 mg sodium per day. Strict I's and O's. Daily weights. Heart failure program referral for outpatient medication titration. TSH ok. Monitor renal function and electrolytes. 2. Atrial flutter s/p cardioversion: Feels much better following cardioversion on 08/03/24. Continue anticoagulation for stroke risk reduction. Eliquis initiated. Monitor renal function and CBC. Consider EP evaluation as outpatient to consider possible atrial flutter ablation vs monitoring. 3. Cardiomyopathy: Likely tachycardia induced. Recommend plan as above and if no significant recovery in the next few weeks, would recommend ischemic evaluation and other secondary evaluation as necessary. Medical therapy as above. ICD for primary prevention if EF remains less than 35% after 3 months of optimal therapy. 4. Hypertension: Blood pressure greer elevated. Goal-directed medical therapy for heart failure as above which should also improve his blood pressure. Increasing Entresto. 5. Elevated troponin: Likely due to demand ischemia in the setting of heart failure and atrial flutter with rapid ventricular response. No angina as symptoms were likely related to his heart failure/atrial flutter. Low threshold for cardiac catheterization if he does not improve with management of his atrial flutter and heart failure. No urgent indication for cardiac catheterization but we discussed potential in the future if LV systolic function does not improve. 6. Disposition: Cardiology will continue to follow. Plan of care discussed with Dr. Correa of the primary hospitalist service. Heart failure follow-up next week. Admission and Anticipated Discharge Date Admission Date: July 31, 2024 Subjective Patient seen earlier this morning. He was unaccompanied. Exercise tolerance continues to improve while walking through the nursing station. He slept more soundly than he has been. He denies chest pain, shortness of breath, syncope, near syncope, palpitations, or bleeding. Physical Exam Physical Exam: Gen.: No acute distress. Alert and oriented. HEENT: Anicteric sclera. Neck: Thick neck. No appreciable JVD or hepatojugular reflux. Cardiac: Regular. Normal S1-S2. 1/6 systolic murmur. Pulmonary: Clear to auscultation bilaterally without wheezes, rales, or rhonchi. Abdomen: Soft, nontender, nondistended, with normoactive bowel sounds. No bruits noted. Extremities: 2+ radial pulses bilaterally. 2+ posterior tibialis pulses bilaterally 1-2+ bilateral lower extremity edema. No cyanosis. Psychiatric: Affect appears appropriate. Results & Data Vital Signs (Past 12 Hours) Vital Signs Temp Pulse Resp BP BP Pulse Ox O2 Del Method 08/05/24 07:32 36.6 C 73 16 170/125 H 98 Room Air 08/05/24 02:57 36.6 C 63 16 150/104 H 95 Room Air Intake & Output 08/03/24 08/04/24 08/05/24 08/06/24 06:59 06:59 06:59 06:59 Intake Total 1149.333 / 3660.445 3003.667 / 5214.372 0075 / 1470 Output Total 2650 / 2650 5701 / 5701 Balance 1149.333 / 1149.333 -975.333 / -975.333 -4231 / -4231 Weight 265 lb 5 oz 258 lb 6.108 oz 249 lb 12.54 oz Laboratory Results Laboratory Results - last 24 hr 08/03/24 08/05/24 11:07 08:27 Sodium 140 Potassium 3.9 Chloride 100 Carbon Dioxide 33 H Anion Gap 7 BUN 24 H Creatinine 1.51 H Est Cr Clr Drug Dosing 77.7 Est GFR ( Amer) 62.4 Est GFR (Non-Af Amer) 53.8 BUN/Creatinine Ratio 15.9 Glucose 109 H Calcium 9.7 U Random Total Protein 13 Ur Creatinine mg/dL 18 L Protein/Creatinin Ratio 0.722 H Urine Albumin (%) 72 U Lsdmx-3-Xxdtioto (%) 6 U Hbmqw-0-Kkdivxft (%) 6 U Beta Globulin (%) 8 U Gamma Globulin (%) 8 U Abnormal Prot Band 1 DNR U Abnormal Prot Band 2 DNR U Abnormal Prot Band 3 DNR Urine PEP Interpret SEE NOTE Diagnostic Findings Telemetry personally reviewed: Sinus rhythm. Labs reviewed and notable for stable renal function, normal potassium. Renal arterial duplex 08/04/2024: No evidence of renal artery stenosis. Medications Administered Current Inpatient Medications Acetaminophen (Acetaminophen 500 Mg Tab) 1,000 mg PO Q8H PRN PRN Reason: Pain or Fever Stop: 08/31/24 20:59 Apixaban (Apixaban 5 Mg Tablet) 5 mg PO BID [facility] Stop: 09/02/24 09:29 Last Admin: 08/05/24 08:12 Dose: 5 mg Carvedilol (Carvedilol 12.5 Mg Tab) 12.5 mg PO BIDM FAISAL Stop: 09/02/24 10:04 Last Admin: 08/05/24 08:12 Dose: 12.5 mg Docusate Sodium (Docusate Sodium 100 Mg Cap) 100 mg PO BID FAISAL Stop: 09/02/24 13:44 Last Admin: 08/05/24 08:13 Dose: Not Given Empagliflozin (Empagliflozin 10 Mg Tab) 10 mg PO DAILY FAISAL Stop: 09/02/24 09:44 Last Admin: 08/05/24 08:11 Dose: 10 mg Furosemide (Furosemide 40 Mg/4 Ml Vial) 40 mg IV QAM FAISAL Stop: 09/04/24 08:59 Last Admin: 08/05/24 08:13 Dose: 40 mg Menthol (Cough Drop (Sugar Free) Quan 24 Quan/1 Box) 1 quan BUCCAL PRN PRN PRN Reason: Sore Throat Stop: 08/31/24 22:38 Last Admin: 08/01/24 22:57 Dose: 1 quan Ondansetron HCl (Ondansetron Inj 2 Mg/Ml 2 Ml Vial) 4 mg IV Q6H PRN PRN Reason: nausea Stop: 08/31/24 15:59 Sacubitril/Valsartan (Valsartan/Sacubitril /24mg Tab) 1 tab PO BID FAISAL Stop: 09/01/24 20:59 Last Admin: 08/05/24 08:12 Dose: 1 tab Sennosides (Senna 8.6 Mg Tab) 8.6 mg PO HS FAISAL Stop: 09/02/24 20:59 Last Admin: 08/04/24 21:07 Dose: 8.6 mg Spironolactone (Spironolactone 100 Mg Tab) 100 mg PO QAM FAISAL Stop: 09/04/24 08:59 Last Admin: 08/05/24 08:12 Dose: 100 mg PG Care Time/CCT Total # of Minutes Spent Total Time Spent with Patient: Total time spent is greater than 50% in coordination of care (as documented) at patient's floor/unit and/or counseling patient: Coding Level of Care Code 75036 SUB INP/OBS CARE 3/50MIN Diagnoses Acute HFrEF (heart failure with reduced ejection fraction) I50.21 Atrial fibrillation and flutter I48.91; I48.92 Cardiomyopathy I42.9 HTN (hypertension) I10 Elevated troponin R79.89
--- NOTE | 2024-08-05 12:17 | Nephrology Progress Note ---
Date of Service August 05, 2024 Assessment & Plan (1) MATTHIEU (acute kidney injury): (2) Proteinuria: (3) Hypokalemia: (4) HTN (hypertension): (5) Cardiomyopathy: Plan 48 yr old gentleman with no past medical history but has not been to a physician for many years, presented with A flutter with RVR, CHF, severe cardiomyopathy, poorly controlled hypertension, and noted to have abnormal kidney function and high grade proteinuria. Urine analysis was negative for hematuria. Kidney ultrasound was otherwise unremarkable. On admission creatinine was 1.7 mg/dl, which stayed relatively stable from 1.7-1.8 mg/dl since admission. Unclear whether this is truly MATTHIEU or CKD as no prior records available. However, it is quite possible he has underlying CKD secondary to hypertensive nephrosclerosis or cardiorenal syndrome. Possibility for MATTHIEU remains, but seems less likely. Proteinuria could be secondary to CHF or other etiology. 24-hour urine showed proteinuria of 2 g. Unremarkable renal Doppler Blood pressure remains elevated, on beta-cristina and Entresto, spironolactone a nd Jardiance this morning. Kidney function staying relatively stable, electrolyte acceptable. -- Waiting on serology and paraproteinemia workup. -- Okay to continue on Entresto, and if kidney functions stay relatively stable, okay to increase dose as needed. -- on spironolactone 100 mg daily starting this morning, suggest Increasing carvedilol to 25 mg bid Admission and Anticipated Discharge Date Admission Date: July 31, 2024 Cornelio Escamilla was seen and evaluated this morning. He reports feeling well, staying in sinus rhythm, rate much better controlled. Blood pressure remain elevated. Kidney function staying relatively stable, electrolyte acceptable. Review of Systems Review of Systems: Detailed review of system was otherwise unremarkable except mentioned above. Physical Exam Constitutional: WD/WN, vitals as above no acute distress Eyes: + anicteric sclerae Respiratory: no respiratory distress Cardiovascular: Rate/Rhythm: regular rate and + tachycardic Heart Sounds: normal S1 and normal S2 Extremities: no edema Musculoskeletal: Extremities: extremities normal to inspection Skin: no rashes, warm and dry Neurologic: no focal motor deficits Psychiatric: Orientation: alert and oriented x 3 Affect: euthymic affect Results & Data Vital Signs (Past 12 Hours) Vital Signs Temp Pulse Resp BP BP Pulse Ox O2 Del Method 08/05/24 07:32 36.6 C 73 16 170/125 H 98 Room Air 08/05/24 02:57 36.6 C 63 16 150/104 H 95 Room Air PG Care Time/CCT Total # of Minutes Spent Total Time Spent with Patient: Total time spent is greater than 50% in coordination of care (as documented) at patient's floor/unit and/or counseling patient: Coding Level of Care Code 24111 SUB INP/OBS CARE 2/35MIN Diagnoses MATTHIEU (acute kidney injury) N17.9 Proteinuria R80.9 Hypokalemia E87.6 HTN (hypertension) I10 Cardiomyopathy I42.9
--- NOTE | 2024-08-05 15:44 | Hospitalist Progress Note ---
Date of Service August 05, 2024 Assessment & Plan (1) Atrial fibrillation and flutter: Plan: Presented in rapid atrial flutter with rates in the 120s-130s. This is a new diagnosis,he has been asymptomatic until developed heart failure symptoms over the last week prior to admission. Unclear when rapid aflutter started. TSH checked and normal at 1.9 Now s/p GUERRERO and successful electric cardioversion on 08/03. Remains in NSRsince that time with rates 80s, some PVCs, 7 beats VT 08/03,some bigem Continue Eliquis 5mg po bid for stroke prevention -has received cost savings card Continue Coreg 12.5mg po bid Possible need for atrial flutter ablation in the future Continue tele monitoring (2) Acute HFrEF (heart failure with reduced ejection fraction): Plan: Presented with rapid 8 lb weight gain, lower extremity edema, abdominal bloating, SOB, CXR w/ pulmonary edema and cardiomegaly. With significant hypertension and with rapid atrial flutter. BNP elevated at 743. Echocardiogram with global hypokinesis and LVEF 25-30%, mild MR, mildly dilated thoracic aortic aneurysm at 3.7 cm Most likely cardiomyopathy from tachyarrhythmia. Less likely ischemic CM. TSH normal. Troponin elevated/peaked at 147 Now s/p cardioversion to sinus rhythm. GUERRERO showed EF 35-40%, severe LVH, no CAREN thrombus, mod dilated RV with moderate RV dysfunction, mild Pulm HTN Started Entresto, Coreg 12.5mg po bid, Jardiance 10mg daily and spironolactone 100mg daily--> increase Entresto to 49/51mg this evening Remains volume overloaded but overall much improved--> weight down 8 kg, (I/Os not accurate as output wasn't recorded for first 2 days)--> continue lasix 40mg IV bid Continue to improve on BP control as below Follow BMP, magnesium and keep electrolytes optimized-no replacement needed today Continue Daily weights, low-sodium diet, strict I's and O's Follow echocardiogram in future and place ICD for primary prevention if EF remains less than 35% after 3 months of optimal therapy (3) HTN (hypertension): Plan: Hypertensive on presentation, likely has been hypertensive for a period of time. He reports treatment for hypertension at age 33 approximately with lisinopril but lost 30 to 40 pounds of weight and his blood pressures improved at that time. He has not been seen by a doctor since then but has been told his BP was high at urgent care visits BPs remain quite elevated despite starting Coreg, Entresto, Jardiance, spironolactone, and giving Lasix Renal Doppler negative for LALI Will titrate up Entresto dose today Could increase Coreg to 25mg bid tomorrow if needed, watch HRs (4) MATTHIEU (acute kidney injury): Plan: MATTHIEU vs CKD-there is no baseline for comparison. 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 Hemoglobin A1c only in the prediabetes range He is making urine and no other electrolyte abnormalities. He is volume overloaded as above with heart failure and rapid atrial flutter Continue giving Lasix for heart failure and volume overload as above Creatinine as high as 1.79 but improved with diuresis to 1.5 and remains stable for many days Consult nephrology appreciated-checking for primary paraproteinemia, other serologies (JOSE ELIAS,complements,etc)--> SPEP neg, UPEP pending Control BP. Is now in sinus rhythm and rates are better controlled Follow BMP daily (5) Proteinuria: Plan: 4+ urinalysis, repeat UA no protein 24 hr urine prot 2 grams SPEP neg,UPEP, light chains pending (6) Hypokalemia: Plan: now normalized and on higher doses of spironolactone now Follow BMP, magnesium (7) Elevated troponin: Plan: trop 113-> 129 and peaked at 147 ECG without definite ischemic changes but show right bundle branch block and possible inferior TWIs Cardiology recommends low threshold for cardiac catheterization if his LVEF does not improve with management of his atrial flutter and heart failure This is most likely due to myocardial demand ischemia in the setting of acute HFrEF and renal failure along with rapid atrial flutter (8) Dilatation of thoracic aorta: Plan: Noted to be 3.7 cm of the ascending thoracic aorta Needs improved control of hypertension Follow with echocardiogram at least annually (9) Prediabetes: Plan: Hemoglobin A1c here elevated at 6.2% in the prediabetes range Needs low carbohydrate diet and weight loss Monitor as an outpatient with PCP (10) Anemia: Plan: mildly low hgb, normoacytic pt requests to have his blood type checked-will add to AM labs check Fe studies, B12, folate as well TSH normal Plan Code: Full VTE Prophylaxis: Rick Disposition-continued stay on PCU, possible dc to home in another 1-2 days after further diuresis and BP control but overall much improved. Nurse Navigator has already set him up an appt with a new PCP (Dr. Fishman) on Aug 18 Will also need Cardiology, CHF clinic, and Nephrology follow up Admission and Anticipated Discharge Date Admission Date: July 31, 2024 Subjective Pt feeling better each day. Is able to walk many more laps around the nurse's station today with less SHELLEY. Feels leg swelling is down, mood is improving. Moving bowels, making plenty of urine. I discussed his care with Cardiology Tele with NSR, IVCD, PVCs, trigem, bigem, and rates 60-70s Physical Exam Constitutional: WD/WN, vitals as above + obese Neck: trachea midline, no thyromegaly Respiratory: normal respiratory effort, lungs clear to auscultation Cardiovascular: Rate/Rhythm: regular rate and regular rhythm Extremities: + edema (1+ pitting edema of the legs bilaterally to the knees,much improved) Chest (Breasts): Chest: normal inspection of chest Musculoskeletal: Extremities: no cyanosis and no clubbing Skin: no rashes, warm and dry Neurologic: moves all extremities and awake; no focal motor deficits Psychiatric: A+Ox3, euthymic affect Results & Data Results & Data Vital Signs (Past 12 Hours) Vital Signs Temp Pulse Resp BP BP Pulse Ox O2 Del Method 08/05/24 14:54 36.9 C 70 18 153/111 H 97 Room Air 08/05/24 07:45 Room Air 08/05/24 07:32 36.6 C 73 16 170/125 H 98 Room Air PG Care Time/CCT Total # of Minutes Spent Total Time Spent with Patient: Total time spent is greater than 50% in coordination of care (as documented) at patient's floor/unit and/or counseling patient: Coding Level of Care Code 53230 SUB INP/OBS CARE 2/35MIN Diagnoses Atrial fibrillation and flutter I48.91; I48.92 Acute HFrEF (heart failure with reduced ejection fraction) I50.21 HTN (hypertension) I10 MATTHIEU (acute kidney injury) N17.9 Proteinuria R80.9 Hypokalemia E87.6 Elevated troponin R79.89 Dilatation of thoracic aorta I77.810 Prediabetes R73.03 Anemia D64.9
[2024-08-05] MEDS: VALSARTAN/SACUBITRIL 51/49 MG TAB PO SCH (20:18)
[2024-08-06] MEDS: ACETAMINOPHEN 500 MG TAB PO PRN (01:43)
[2024-08-06 07:14] VITALS: RESP 20; TEMP 97.7
[2024-08-06 07:24] LABS: Basophils # (auto) 0.08 K/uL (0.00-0.20); Basophils % (auto) 1.2 %; Eosinophils # (auto) 0.36 K/uL (0.00-0.50); Eosinophils % (auto) 5.4 %; Hemoglobin 14.8 g/dl (14.0-18.0); Immature Granulocytes # (auto) 0.03 K/uL (0.01-0.20); Immature Granulocytes % (auto) 0.5 %; Lymphocytes % (auto) 25.7 %; Mean Corpuscular Hemoglobin 27.2 pg (25.0-34.0); Mean Corpuscular Hgb Conc 32.9 g/dL (32.0-36.0); Mean Corpuscular Volume 82.7 fL (80.0-100.0); Mean Platelet Volume 10.6 fL (9.4-12.4); Monocytes # (auto) 0.95 K/uL (0.11-0.59); Monocytes % (auto) 14.4 %; Neutrophils % (auto) 52.8 %; Platelet Count 315 K/uL (130-400); RDW Coefficient of Variation 14.7 % (11.5-14.5); RDW Standard Deviation 44.5 fL (36.4-46.3); Red Blood Count 5.44 M/uL (4.70-6.10); White Blood Count 6.62 K/ul (4.8-10.8)
--- NOTE | 2024-08-06 07:29 | Cardiology Progress Note ---
Date of Service August 06, 2024 Assessment & Plan (1) Acute HFrEF (heart failure with reduced ejection fraction): (2) Atrial fibrillation and flutter: (3) Cardiomyopathy: (4) HTN (hypertension): (5) Elevated troponin: Plan ASSESSMENT/PLAN: 1. Acute heart failure with reduced EF: Status much improved. Still likely mildly hypervolemic. NYHA class II (improved). Likely due to atrial flutter with rapid ventricular response. Reduce Lasix to 40 mg once daily p.o. Con tinue Entresto, spironolactone and SGLT2 inhibitor. Monitor renal function closely. Continue carvedilol. Less than 2000 mg sodium per day. Strict I's and O's. Daily weights. Heart failure program referral for outpatient medication titration. TSH ok. Monitor renal function and electrolytes. Will increase carvedilol to 25 mg twice daily. 2. Atrial flutter s/p cardioversion: Feels much better following cardioversion on 08/03/24. Continue anticoagulation for stroke risk reduction. Eliquis initiated. Monitor renal function and CBC. Consider EP evaluation as outpatient to consider possible atrial flutter ablation vs monitoring. 3. Cardiomyopathy: Likely tachycardia induced. Recommend plan as above and if no significant recovery in the next few weeks, would recommend ischemic evalu ation and other secondary evaluation as necessary. Medical therapy as above. ICD for primary prevention if EF remains less than 35% after 3 months of optimal therapy. 4. Hypertension: Blood pressure greer elevated. Goal-directed medical therapy for heart failure as above which should also improve his blood pressure. Increasing carvedilol today. 5. Elevated troponin: Likely due to demand ischemia in the setting of heart failure and atrial flutter with rapid ventricular response. No angina as symptoms were likely related to his heart failure/atrial flutter. Low threshold for cardiac catheterization if he does not improve with management of his atrial flutter and heart failure. No urgent indication for cardiac catheterization but we discussed potential in the future if LV systolic function does not improve. 6. Disposition: Plan of care indicated with Dr. Lozada of the primary hospitalist service. Heart failure follow-up next week. Okay for discharge from a cardiology perspective. Admission and Anticipated Discharge Date Admission Date: July 31, 2024 Subjective Patient seen this morning. He denies chest pain, shortness of breath, syncope, near syncope, palpitations. Exercise tolerance is improving. He has briskly walking through the hallways. He had some muscle cramping in his right leg overnight. His sister joined the conversation via [employer]. Physical Exam Physical Exam: Gen.: No acute distress. Alert and oriented. HEENT: Anicteric sclera. Neck: Thick neck. No appreciable JVD or hepatojugular reflux. Cardiac: Regular. Normal S1-S2. No audible murmur. Pulmonary: Clear to auscultation bilaterally without wheezes, rales, or rhonchi. Abdomen: Soft, nontender, nondistended, with normoactive bowel sounds. No bruits noted. Extremities: 2+ radial pulses bilaterally. 2+ posterior tibialis pulses bilaterally 1+ bilateral lower extremity edema (much improved). No cyanosis. Psychiatric: Affect appears appropriate. Results & Data Vital Signs (Past 12 Hours) Vital Signs Temp Pulse Pulse Resp BP BP Pulse Ox 08/06/24 07:16 58 L 08/06/24 07:13 36.5 C 60 20 165/111 H 169/112 H 96 08/06/24 03:14 36.3 C L 69 18 138/96 95 08/05/24 22:46 36.5 C 74 16 156/121 H 98 08/05/24 21:51 69 08/05/24 19:54 36.5 C 81 19 154/110 H 97 O2 Del Method 08/06/24 07:16 08/06/24 07:13 Room Air 08/06/24 03:14 Room Air 08/05/24 22:46 Room Air 08/05/24 21:51 08/05/24 19:54 Room Air Intake & Output 08/04/24 08/05/24 08/06/24 08/07/24 06:59 06:59 06:59 06:59 Intake Total 1674.667 / 9907.487 2375 / 1470 550 / 550 Output Total 2650 / 2650 5701 / 5701 6325 / 6325 Balance -975.333 / -975.333 -4231 / -4231 -5775 / -5798 Weight 258 lb 6.108 oz 249 lb 12.54 oz Laboratory Results Laboratory Results - last 24 hr 08/05/24 08/06/24 08:27 06:57 WBC 6.62 RBC 5.44 Hgb 14.8 Hct 45.0 MCV 82.7 MCH 27.2 MCHC 32.9 RDW Std Deviation 44.5 RDW Coeff of Raheem 14.7 H Plt Count 315 MPV 10.6 Immature Gran % (Auto) 0.5 Neut % (Auto) 52.8 Lymph % (Auto) 25.7 [place] % (Auto) 14.4 Eos % (Auto) 5.4 Baso % (Auto) 1.2 Neut # (Auto) 3.50 Lymph # (Auto) 1.70 [place] # (Auto) 0.95 H Eos # (Auto) 0.36 Baso # (Auto) 0.08 Immature Gran # (Auto) 0.03 Sodium 140 139 Potassium 3.9 4.4 Chloride 100 101 Carbon Dioxide 33 H 32 Anion Gap 7 6 BUN 24 H 25 H Creatinine 1.51 H 1.69 H Est Cr Clr Drug Dosing 77.7 69.5 Est GFR ( Amer) 62.4 54.5 Est GFR (Non-Af Amer) 53.8 47.0 BUN/Creatinine Ratio 15.9 14.8 Glucose 109 H 96 Calcium 9.7 9.5 Magnesium 2.1 Iron 39 TIBC 387 Unsaturated IBC 348 Transferrin % Sat 10 L Ferritin 29.3 Vitamin B12 490 Folate 15.49 Blood Type O Positive Antibody Screen NEGATIVE Diagnostic Findings Labs reviewed and notable for stable renal function, normal potassium, normal magnesium. Normal ferritin. Normal blood counts. Telemetry personally reviewed: 7 beat run of ventricular tachycardia yesterday. Otherwise, sinus rhythm. Medications Administered Current Inpatient Medications Acetaminophen (Acetaminophen 500 Mg Tab) 1,000 mg PO Q8H PRN PRN Reason: Pain or Fever Stop: 08/31/24 20:59 Last Admin: 08/06/24 01:43 Dose: 1,000 mg Apixaban (Apixaban 5 Mg Tablet) 5 mg PO BID [facility] Stop: 09/02/24 09:29 Last Admin: 08/05/24 20:18 Dose: 5 mg Carvedilol (Carvedilol 12.5 Mg Tab) 12.5 mg PO BIDM [facility] Stop: 09/02/24 10:04 Last Admin: 08/05/24 17:45 Dose: 12.5 mg Docusate Sodium (Docusate Sodium 100 Mg Cap) 100 mg PO BID [facility] Stop: 09/02/24 13:44 Last Admin: 08/05/24 20:21 Dose: 100 mg Empagliflozin (Empagliflozin 10 Mg Tab) 10 mg PO DAILY [facility] Stop: 09/02/24 09:44 Last Admin: 08/05/24 08:11 Dose: 10 mg Furosemide (Furosemide 40 Mg/4 Ml Vial) 40 mg IV [id number] [facility]ISAL Stop: 09/04/24 16:59 Last Admin: 08/05/24 18:09 Dose: 40 mg Menthol (Cough Drop (Sugar Free) Quan 24 Quan/1 Box) 1 quan BUCCAL PRN PRN PRN Reason: Sore Throat Stop: 08/31/24 22:38 Last Admin: 08/01/24 22:57 Dose: 1 quan Ondansetron HCl (Ondansetron Inj 2 Mg/Ml 2 Ml Vial) 4 mg IV Q6H PRN PRN Reason: nausea Stop: 08/31/24 15:59 Sacubitril/Valsartan (Valsartan/Sacubitril 51/49 Mg Tab) 1 tab PO BID [facility] Stop: 09/04/24 20:59 Last Admin: 08/05/24 20:18 Dose: 1 tab Sennosides (Senna 8.6 Mg Tab) 8.6 mg PO HS [facility] Stop: 09/02/24 20:59 Last Admin: 08/05/24 20:21 Dose: Not Given Spironolactone (Spironolactone 100 Mg Tab) 100 mg PO QAM [facility] Stop: 09/04/24 08:59 Last Admin: 08/05/24 08:12 Dose: 100 mg PG Care Time/CCT Total # of Minutes Spent Total Time Spent with Patient: Total time spent is greater than 50% in coordination of care (as documented) at patient's floor/unit and/or counseling patient: Coding Level of Care Code 57174 SUB INP/OBS CARE 3/50MIN Diagnoses Acute HFrEF (heart failure with reduced ejection fraction) I50.21 Atrial fibrillation and flutter I48.91; I48.92 Cardiomyopathy I42.9 HTN (hypertension) I10 Elevated troponin R79.89
[2024-08-06 07:41] LABS: Calcium 9.5 mg/dl (8.6-10.3); Magnesium 2.1 mg/dl (1.7-2.4); Potassium 4.4 mmol/L (3.5-5.1)
[2024-08-06 08:00] LABS: Ferritin 29.3 ng/ml (8-388)
[2024-08-06 08:09] LABS: Folate (Folic Acid),Ser orPlas 15.49 ng/ml (>5.38)
[2024-08-06 08:48] LABS: BUN Creatinine Ratio 14.8 (10-20); Creatinine Clr Calc Pharmacy 69.5 ml/min; Est GFR (African American) 54.5 ml/min
--- NOTE | 2024-08-06 10:35 | Nephrology Progress Note ---
Date of Service August 06, 2024 Assessment & Plan (1) MATTHIEU (acute kidney injury): (2) Proteinuria: (3) Hypokalemia: (4) HTN (hypertension): (5) Cardiomyopathy: Plan 48 yr old gentleman with no past medical history but has not been to a physician for many years, presented with A flutter with RVR, CHF, severe cardiomyopathy, poorly controlled hypertension, and noted to have abnormal kidney function and high grade proteinuria. Urine analysis was negative for hematuria. Kidney ultrasound was otherwise unremarkable. On admission creatinine was 1.7 mg/dl, which stayed relatively stable from 1.7-1.8 mg/dl since admission. Unclear whether this is truly MATTHIEU or CKD as no prior records available. However, it is quite possible he has underlying CKD secondary to hypertensive nephrosclerosis or cardiorenal syndrome. Possibility for MATTHIEU remains, but seems less likely. Proteinuria could be secondary to CHF or other etiology. 24-hour urine showed proteinuria of 2 g. Unremarkable renal Doppler Blood pressure remains elevated, on beta-cristina and Entresto, spironolactone a nd Jardiance this morning. Kidney function staying relatively stable, electrolyte acceptable. -- Suggest to decrease Lasix to 40 mg daily as he has been significantly net negative, getting pretty close to baseline weight. --Recommend starting on amlodipine 5 mg daily as blood pressure remains elevated -- Okay to continue on Entresto, and if kidney functions stay relatively stable, okay to increase dose as needed. -- on spironolactone 100 mg daily starting this morning, suggest Increasing carvedilol to 25 mg bid -- Advised to have lab done early next week and then in 2 weeks, we will schedu le outpatient nephrology follow-up in 3 to 4 weeks. Will sign off. Admission and Anticipated Discharge Date Admission Date: July 31, 2024 Cornelio Escamilla was seen and evaluated this morning. He continues to make progress clinically, overall feeling well, pretty close to baseline. Has been having great urine output, 5 to 6 L/day on IV diuretic. Blood pressure remain elevated. Kidney function stable. Review of Systems Review of Systems: Detailed review of system was otherwise unremarkable except mentioned above. Physical Exam Constitutional: WD/WN, vitals as above no acute distress Eyes: + anicteric sclerae Respiratory: no respiratory distress Cardiovascular: Rate/Rhythm: regular rate, + tachycardic and + irregularly irregular Heart Sounds: normal S1 and normal S2 Gastrointestinal (Abdomen): Inspection/Auscultation: abdomen normal to inspection Musculoskeletal: Extremities: extremities normal to inspection Skin: no rashes, warm and dry Neurologic: no focal motor deficits Psychiatric: Orientation: alert and oriented x 3 Affect: euthymic affect Results & Data Vital Signs (Past 12 Hours) Vital Signs Temp Pulse Pulse Resp BP BP Pulse Ox 08/06/24 07:16 58 L 08/06/24 07:13 36.5 C 60 20 165/111 H 169/112 H 96 08/06/24 03:14 36.3 C L 69 18 138/96 95 08/05/24 22:46 36.5 C 74 16 156/121 H 98 O2 Del Method 08/06/24 07:16 08/06/24 07:13 Room Air 08/06/24 03:14 Room Air 08/05/24 22:46 Room Air PG Care Time/CCT Total # of Minutes Spent Total Time Spent with Patient: Total time spent is greater than 50% in coordination of care (as documented) at patient's floor/unit and/or counseling patient: Coding Level of Care Code 34602 SUB INP/OBS CARE 2/35MIN Diagnoses MATTHIEU (acute kidney injury) N17.9 Proteinuria R80.9 Hypokalemia E87.6 HTN (hypertension) I10 Cardiomyopathy I42.9
[2024-08-06 11:03] VITALS: BP 152/110; PULSE 70; O2SAT 97
[2024-08-06] MEDS ORDERED: carvediloL 25 MG TAB PO SCH (17:00)
[2024-08-07] MEDS ORDERED: FUROSEMIDE 40 MG TAB PO SCH (09:00)
--- NOTE | 2024-08-09 06:53 | Discharge Summary ---
Discharge Summary Date of Service August 06, 2024 Principal Dx & Hospital Course #1 = Principal Diagnosis (1) Atrial fibrillation and flutter: Presented in rapid atrial flutter with rates in the 120s-130s. This is a new diagnosis,he has been asymptomatic until developed heart failure symptoms over the last week prior to admission. Unclear when rapid aflutter started. TSH checked and normal at 1.9 Now s/p GUERRERO and successful electric cardioversion on 08/03. Remains in NSRsince that time with rates 80s, some PVCs, 7 beats VT 08/03,some bigem Continue Eliquis 5mg po bid for stroke prevention -has received cost savings card Continue Coreg 12.5mg po bid Possible need for atrial flutter ablation in the future Continue tele monitoring (2) Acute HFrEF (heart failure with reduced ejection fraction): Presented with rapid 8 lb weight gain, lower extremity edema, abdominal bloating, SOB, CXR w/ pulmonary edema and cardiomegaly. With significant hypertension and with rapid atrial flutter. BNP elevated at 743. Echocardiogram with global hypokinesis and LVEF 25-30%, mild MR, mildly dilated thoracic aortic aneurysm at 3.7 cm Most likely cardiomyopathy from tachyarrhythmia. Less likely ischemic CM. TSH normal. Troponin elevated/peaked at 147 Now s/p cardioversion to sinus rhythm. GUERRERO showed EF 35-40%, severe LVH, no CAREN thrombus, mod dilated RV with moderate RV dysfunction, mild Pulm HTN Started Entresto, Coreg 12.5mg po bid, Jardiance 10mg daily and spironolactone 100mg daily--> increase Entresto to 49/51mg this evening Remains volume overloaded but overall much improved--> weight down 8 kg, (I/Os not accurate as output wasn't recorded for first 2 days)--> continue lasix 40mg IV bid Continue to improve on BP control as below Follow BMP, magnesium and keep electrolytes optimized-no replacement needed today Continue Daily weights, low-sodium diet, strict I's and O's Follow echocardiogram in future and place ICD for primary prevention if EF remains less than 35% after 3 months of optimal therapy (3) HTN (hypertension): Hypertensive on presentation, likely has been hypertensive for a period of time. He reports treatment for hypertension at age 33 approximately with lisinopril but lost 30 to 40 pounds of weight and his blood pressures improved at that time. He has not been seen by a doctor since then but has been told his BP was high at urgent care visits BPs remain quite elevated despite starting Coreg, Entresto, Jardiance, spironolactone, and giving Lasix Renal Doppler negative for LALI will discharge on medication regimen noted trista. (4) MATTHIEU (acute kidney injury): MATTHIEU vs CKD-there is no baseline for comparison. 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 Hemoglobin A1c only in the prediabetes range He is making urine and no other electrolyte abnormalities. He is volume overloaded as above with heart failure and rapid atrial flutter Continue giving Lasix for heart failure and volume overload as above Creatinine as high as 1.79 but improved with diuresis to 1.5 and remains stable for many days Consult nephrology appreciated-checking for primary paraproteinemia, other serologies (JOSE ELIAS,complements,etc)--> SPEP neg, UPEP pending Control BP. Is now in sinus rhythm and rates are better controlled appreciate input. (5) Proteinuria: 4+ urinalysis, repeat UA no protein 24 hr urine prot 2 grams SPEP neg,UPEP, light chains pending (6) Hypokalemia: now normalized and on higher doses of spironolactone now monitor as outpatient (7) Elevated troponin: trop 113-> 129 and peaked at 147 ECG without definite ischemic changes but show right bundle branch block and possible inferior TWIs Cardiology recommends low threshold for cardiac catheterization if his LVEF does not improve with management of his atrial flutter and heart failure This is most likely due to myocardial demand ischemia in the setting of acute HFrEF and renal failure along with rapid atrial flutter (8) Dilatation of thoracic aorta: Noted to be 3.7 cm of the ascending thoracic aorta Needs improved control of hypertension Follow with echocardiogram at least annually (9) Prediabetes: Hemoglobin A1c here elevated at 6.2% in the prediabetes range Needs low carbohydrate diet and weight loss Monitor as an outpatient with PCP (10) Anemia: mildly low hgb, normoacytic pt requests to have his blood type checked-will add to AM labs check Fe studies, B12, folate as well TSH normal Plan Nurse Navigator has already set him up an appt with a new PCP (Dr. Fishman) on Aug 18 Will also need Cardiology, CHF clinic, and Nephrology follow up Admission HPI Per Admitting Provider 48 year old male with a past medical history of HTN- not on any medications pres enting with shortness of breath, chest tightness, abdominal discomfort. No PCP- has not been seen by a physician in a number of years. Over the past week noticed some increased abdominal bloating- thought it might be related to constipation. Began to feel short of breath, especially when leaning over and had some chest discomfort. Has never had symptoms like this before. When he arrived to the ED his HR was in the 140s blood pressure 240s/110s-> found to be in afib/flutter. No prior history of afib/flutter. Now s/p 5mg IV Lopressor x 2 with rates in the 100s. States that he is feeling much better. Still notes some abdominal bloating, but dyspnea/chest pain have improved. Denies dark/blood stools. Denies recent illness. Discharge Exam Constitutional: well-appearing, no acute distress HEENT: NCAT, no conjunctival injection CV: iRRR, no murmur appreciated, extremities well-perfused, no LE edema Resp: CTABL, no wheezes/rales/rhonchi appreciated, no increased work of breathing GI: soft, nondistended, nontender MSK: no gross deformities appreciated Skin: warm, dry, no rash appreciated Neuro: alert, oriented, no focal neurologic deficit appreciated Discharge Plan Discharge Items Patient Disposition: Home - Self-Care Reason For Visit: A FIB Discharge Diagnosis: A. fib Activity: Resume your previous activity Non-emergency contact: Primary Care Provider Call non-emergency contact if: you have any medication questions Follow-up/Referrals: Sravani Lopez PA-C [Physician [place] Sorter] - 08/09/24 10:30 pm (Congestive Heart Failure Program Appointment Information Early follow up is essential to managing your heart failure. An appointment has been scheduled for you with the [facility] within 7 days of discharge. Anticipate this visit to be 30-60 minutes long. Please expect a epic radiant analyst phone call from one of our nurses approximately 48 hours from discharge. They will also be placing an order for lab work to be completed 1-2 days prior to your heart failure follow up appointment. Please be sure to have this done so we can go over the results when you come in. Office Location The cardiology office building is located in front of the hospital at [address] Bring the following with you to your follow-up doctor appointments: Please bring your daily weight log any discharge paperwork all of your medication bottles with you to this visit. ) Ryne Fishman DO [Physician] - 08/18/24 1:00 pm (Establish Care appointment) PCP,NO [Primary Care Provider] - Diet: Heart Healthy and Low Sodium (2gm) Fluids: 1500ml (6 cups) Addtl Attending Provider Instructions: You will be discharged on lasix 40 mg daily. Coreg 25 mg twice daily Continue entresto 1 tablet twice a day. We will continue with lasix daily, spironolactone, jardiance and Eliquis. Addtl Patient Day Coordinator Provider Instructions: Call your Primary Care doctor if any of the following symptoms or problems start or get worse: * Shortness of breath or difficulty breathing * Wake up at night short of breath * Chest pain * Cough * Swelling of your hands, feet, or legs * More fatigued or tired with your normal activity * Palpitations - sudden fast heart beats WEIGHT * Weigh yourself every morning after using the bathroom. * Use the same scale. * Wear the same amount of clothing. * Write your weight down on a chart. * Call your Primary Care doctor if you gain more than 2-3 pounds in 1-2 days. MEDICATIONS * Use this discharge instruction sheet for medication instructions. * Take your medications at the time your doctor ordered. * Do not skip a dose of your medicines. * If you miss a dose of medicine, take it as soon as possible, but DO NOT DOUBLE A DOSE. * Read your medicine information when you get home. * Know all of the side effects of your medicine. If in doubt, ask your pharmacist * Call your Primary Care doctor's office if you have any side effects. * Be sure all of your doctors know what medicine and herbs you take (including cold, flu, and herbal medicine). Take the following with you to your follow-up doctor appointments: * Weight Chart * Medication List * List of questions Do not drink excessive alcohol, beer or wine. Pending Studies at Discharge: No Stand-Alone Forms: [facility], Smoking Cessation Medications and DC Order Prescriptions: New furosemide 40 mg Tablet 40 mg PO QAM Qty: 30 0RF carvedilol 25 mg Tablet 25 mg PO BIDM Qty: 60 0RF spironolactone 100 mg Tablet 100 mg PO QAM Qty: 30 0RF Eliquis 5 mg Tablet 5 mg PO BID Qty: 60 0RF Jardiance 10 mg Tablet 10 mg PO DAILY Qty: 30 0RF Entresto 49-51 mg Tablet 1 tab PO BID Qty: 60 0RF No Action No Known Home Medications Discharge Orders: Discharge Order- CHF (Routine); Ordered 08/06/24 Ordered By: Sea Quiles/Other Patient Handouts: Prediabetes, 5 Steps for Eating Healthier Admission Data Admit Date/Time: 07/31/24 23:11 Attending Provider: Sae Lozada Admit Provider: Marissa Lyles Primary Care Provider: PCP,NO Other Providers: Yuri Mei; Javier Shetty; Ai Canales; Lachelle Strickland; Nguyễn Oshea; Clau Oshea; Shyam Jensen; Shaji Sparrow; Ryan Victor; Bea Farfan; Maryanne Osborne; Corie Mckay; Chely Pettit; Shaji Pettit V; Alan Christian; Cortney Ham; Nate Street; Kodi Saldivar; Gaby Richter; Joe Richter; Olesya Aguirre; Darrell Singer; Sravani Echevarria; Jenn Figueroa; Maame Gutiérrez; Rajani Rodriguez; Gale Shepard; Alban Schilling; Koko Burrows; Princess Davila; Stuart Sutherland; Colton Callejas; Karolina Min; Joe Olivas; Liz Liao; Cassie Ennis; Mariano Ray.; Prabhakar Shea; Saul Soler; Eugene Del Toro; Geovanni Del Toro; Adrian Modi; Stuart Jose Jr; Josue Parmar; Herminio Tamayo Jr; Jenn Ramon; Nickolas Polanco; Laura Yadav; Adonis Sosa; Alban Patel; Marie Spencer; Shaji Mathews; Ike Frank; Linh Pineda; Ramon Barton; Nell Chisohlm; Lukas Millan; Edie Meyer; Consuelo Franz; Ana Quinteros; Marci Moreau; Lucia Miller; Canelo Miller; Rosey Loyd; Aki Cardoza; Yolande Rolle; Ofelia Schrader; Maame Gomez; Ken Flores; Sandro Aponte; Leena Aaron; Sravani Lopez Other Interventions: Discharge Summary Assessment (RN) Last Done: 08/06/24 12:12 Hospital Stay Data Consultations 07/31/24 22:26 ED Decision to Admit Stat 08/01/24 06:09 Consult Cardiology Routine 08/02/24 10:16 Consult Nephrology Routine 08/02/24 10:46 Consult Anesthesiology Routine Consult Anesthesiology Routine 08/02/24 10:59 [facility] Referral Routine Procedures Performed Operation Date: 08/03/24 07:45 Actual Procedures p Echo Doppler Complete - Wing Tsai MD s Echo Color Flow - Wing Tsai MD Diagnostic Imagining Performed 08/02/24 10:16 US renal/blad retro comp Routine 08/04/24 08:45 US doppler renal [US duplex renal art/vein BI] Routine Pending Results Patient Have Any Pending Studies at Discharge: No Discharge Instructions Given to Patient (Per Discharging Provider) You will be discharged on lasix 40 mg daily. Coreg 25 mg twice daily Continue entresto 1 tablet twice a day. We will continue with lasix daily, spironolactone, jardiance and Eliquis. Total Time Total Time Spent Total Time Spent (In Minutes): 32 Coding Level of Care Code 48419 INP/OBS DISCH >30 MIN Diagnoses Atrial fibrillation and flutter I48.91; I48.92 Acute HFrEF (heart failure with reduced ejection fraction) I50.21 HTN (hypertension) I10 MATTHIEU (acute kidney injury) N17.9 Proteinuria R80.9 Hypokalemia E87.6 Elevated troponin R79.89 Dilatation of thoracic aorta I77.810 Prediabetes R73.03 Anemia D64.9
== END 2024-08-06 15:23 | disposition home or self-care (01) | DRG 308 ==
LOC: ED 20:43 → EDINP 23:11 → SUATTDRO 23:11 → 2S 08-01 01:36
DX: I48.92 Unspecified atrial flutter; I50.21 Acute systolic (congestive) heart failure; I11.0 Hypertensive heart disease with heart failure; I42.8 Other cardiomyopathies; I16.1 Hypertensive emergency; E87.6 Hypokalemia; R73.9 Hyperglycemia, unspecified; I48.91 Unspecified atrial fibrillation; I24.89 Other forms of acute ischemic heart disease; N17.9 Acute kidney failure, unspecified

== ENCOUNTER 2025-03-10 02:33 | Observation (INO) ==
[2025-03-10 03:06] LABS: Basophils # (auto) 0.09 K/uL (0.00-0.20); Basophils % (auto) 0.6 %; Eosinophils # (auto) 0.29 K/uL (0.00-0.50); Eosinophils % (auto) 1.9 %; Hematocrit (blood only) 49.2 % (42.0-52.0); Hemoglobin 16.5 g/dl (14.0-18.0); Immature Granulocytes # (auto) 0.15 K/uL (0.01-0.20); Mean Corpuscular Hemoglobin 29.9 pg (25.0-34.0); Mean Corpuscular Hgb Conc 33.5 g/dL (32.0-36.0); Mean Corpuscular Volume 89.3 fL (80.0-100.0); Mean Platelet Volume 9.9 fL (9.4-12.4); Monocytes # (auto) 1.11 K/uL (0.11-0.59); Monocytes % (auto) 7.4 %; Neutrophils # (auto) 11.25 K/uL (1.40-6.50); Neutrophils % (auto) 75.1 %; Platelet Count 265 K/uL (130-400); RDW Coefficient of Variation 13.5 % (11.5-14.5); RDW Standard Deviation 44.2 fL (36.4-46.3); Red Blood Count 5.51 M/uL (4.70-6.10); White Blood Count 14.99 K/ul (4.8-10.8)
[2025-03-10 03:12] LABS: Appearance Urine Clear (Clear); Bacteria Urine Automated None Seen (None Seen); Bilirubin Urine Negative (Negative); Blood Urine 1+ (Negative); Cast Urine Automated 0-2 /lpf (0-2); Color Urine Yellow; Epithelial Cell Urine Auto 0-2 /hpf (0-2); Glucose Urine UA 3+ (Negative); Ketones Urine 1+ (Negative); Leukocyte Esterase Urine Negative (Negative); Nitrite Urine Negative (Negative); Protein Urine 2+ (Negative); RBC Urine Automated 0-2 /hpf (0-2); Specific Gravity Urine 1.013 (1.000-1.030); Urobilinogen Urine Negative (Negative); WBC Urine Automated 0-5 /hpf (0-5)
[2025-03-10 03:22] LABS: Alanine Aminotransferase 34 U/L (7-52); Albumin Globulin Ratio 1.9 (0.9-2); Albumin Level 5.2 gm/dl (3.4-5.0); Alkaline Phosphatase 60 U/L (34-104); Anion Gap 7 (3-11); Aspartate Aminotransferase 23 U/L (13-39); BUN Creatinine Ratio 15.6 (10-20); Bilirubin,Total 0.8 mg/dl (0.2-1.0); Blood Urea Nitrogen 19 mg/dl (6-23); Calcium 10.2 mg/dl (8.6-10.3); Carbon Dioxide 31 mmol/L (21-32); Chloride 100 mmol/L (98-107); Globulin 2.8 gm/dl (2.5-4.0); Glucose 198 mg/dl (70-99(Fasting)); Potassium 3.5 mmol/L (3.5-5.1); Sodium 138 mmol/L (136-145)
[2025-03-10] MEDS: ONDANSETRON INJ 2 MG/ML 2 ML VIAL IV STA ×2 (03:33→06:41)
[2025-03-10] MEDS: ONDANSETRON INJ 2 MG/ML 2 ML VIAL ONE (03:34)
[2025-03-10] MEDS: LORazepam 2 MG/1 ML VIAL ONE (03:34)
[2025-03-10] MEDS: LORazepam 2 MG/1 ML VIAL IV STA ×2 (03:34→06:41)
[2025-03-10] MEDS: OPTIRAY 320 125ml IV ONE (04:17)
--- NOTE | 2025-03-10 04:55 | Emergency Department Note ---
Impression & Plan Vertigo Admit to the [facility] ED Provider Note NAME: FLORIDALMA DE LA TORRE IV AGE: 49 SEX: Male INFORMANT: Patient ED PROVIDER(S): Nicolasa Ruiz DO CHIEF COMPLAINT: dizziness; nausea/vomiting PLAN: Disposition: admit to the [facility] MEDICAL DECISION MAKING: This is a 49-year-old male patient who presents to the emergency department with sudden onset of nausea/vomiting and dizziness. patient is significantly hypertensive and bradycardic. his presentation seems consistent with sudden onset of vertigo. Patient symptoms were treated with IV Zofran and Ativan with good relief initially. He went for CT angiograms of the brain and posterior circulation. Laboratory studies reveal mild leukocytosis with a white count of 14.9. H&H were stable. Glucose was elevated at 198. Urinalysis was positive for glucosuria, ketonuria and hematuria. Patient was able to rest for some time. Initially, he was able to drink clear liquids but then in preparation for discharge, as the patient began to move to the side of the bed, he had immediate return of significant nausea, vomiting, dizziness, diaphoresis and vomiting. He was remedicated with Zofran and Ativan. [facility] for further [facility] care. Care/management discussed with: backpackers manager in the [facility] Level of care consideration(s): After review of the information above and other included data, I feel the patient requires escalation of care to admission. Triage Nursing notes: reviewed and agree with them. Vital Signs: reviewed and unremarkable Additional History obtained from: patient's is at the bedside Differential Diagnosis: posterior circulation stroke, dehydration, migraine, benign positional vertigo Diagnostics, independently interpreted by me: ECG: sinus bradycardia at a rate of 54 with PVCs. There is no ST segment elevation or signs of ischemia. Cardiac Monitoring: Sinus bradycardia 51 Imaging studies: CTA of the brain: As per [facility]mb[facility] CTA of the neck:As per [facility] HPI: 49 year old Male arrives for evaluation of sudden onset of nausea, vomiting and dizziness. patient woke suddenly from sleep at 1230 with diaphoresis, dizziness, nausea and vomiting. he denies ever having this happen in the past. PAST MEDICAL HISTORY: See Below, A flutter, hypertension, prediabetes PAST SURGICAL HISTORY: See Below, SOCIAL HISTORY: See Below, HOME MEDICATIONS: See list ALLERGIES: see list VITALS: See Below PHYSICAL EXAMINATION: HEENT: Head - normocephalic and atraumatic. Pupils are equal, round, and reactive to light. Patient has dramatic horizontal and rotary nystagmus. Extraocular eye muscles are intact and sclera are anicteric. Ears - bilaterally patent canals with noninjected tympanic membranes and no evidence of hemotympanum. Nose - moist nasal mucosa without discharge. Mouth - moist buccal mucosa. Oropharynx is nonerythematous and there is no tonsillar exudate or edema noted. Neck: Supple; no JVD, nuchal rigidity, cervical lymphadenopathy, or auscultated bruits. Heart: Regular rate and rhythm. There is a normal S1 and S2 with no murmurs, clicks, or gallops appreciated. Lungs: Clear to auscultation bilaterally with no wheezes, rales, or rhonchi. Abdomen: Soft, completely nontender, nondistended, with good bowel sounds. There are no palpable pulsatile masses or hepatosplenomegaly. There is no guarding, rigidity, or rebound noted. Extremities: No evidence of cyanosis, clubbing, or edema. There are easily palpable peripheral pulses. Neuro:The patient is awake and alert, oriented to day, time, and place. Muscle strength is 5/5 in all 4 extremities. The patient has equal facility supervisor strength and equal pedal push and pull. There are no cerebellar signs. Emergency Department treatment: pipe stress engineer, IV normal saline solution, IV Zofran, IV Ativan, repeat IV Zofran and IV Ativan Emergency Department course: The patient was evaluated in room C9. A complete history and physical was performed. An order was placed for continuous cardiac monitoring. The patient was in a sinus bradycardia at a rate of 51. Patient was medicated with IV Zofran and IV Ativan for significant signs of vertigo. The patient had horizontal and rotary nystagmus. Patient was bolused with IV normal saline solution. patient had a twelve-lead EKG. He went for CT angiogram of the brain and neck. Upon returning from radiology, the patient rested for some time. He seemed to be feeling better but symptoms worsened again and he required additional IV Zofran and Ativan. [facility]Surg History Problem List (Updated 03/10/25 @ 06:20 by Nicolasa Ruiz DO) Vertigo (Acute) Left ventricular hypertrophy Bradycardia Heart failure with improved ejection fraction (HFimpEF) Atrial flutter Hyperkalemia Chronic kidney disease, stage 3a Anemia Vitamin D deficiency Prediabetes Proteinuria Cardiomyopathy Acute HFrEF (heart failure with reduced ejection fraction) Left ventricular dysfunction MATTHIEU (acute kidney injury) HTN (hypertension) Medical History Dilatation of thoracic aorta Surgical History No history of previous surgery Family History Grandfather (Paternal) Cancer Lung cancer Prostate cancer Grandmother (Maternal) Cancer Father Stroke Myocardial infarction Grandfather (Maternal) Stroke Denies family history of Breast cancer Colorectal cancer Social History Smoking Status: Never smoker Second Hand Exposure: Yes; Do You Dip or Chew Tobacco: No; Hx Alcohol Use: Yes Alcohol type: beer Hx Substance Use: No Preferred Language: Jamaican Communication Ability: Effective Sales And Production Manager Required: No Beliefs That Will Affect Care: Restorationist Restorationist Beliefs: Presbyterian Current Living Situation: Alone current occupational status: employed 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 @ [employer] Feels Safe at Home: Yes Assistive Devices: Glasses Allergies Allergies Allergy/AdvReac Type Severity Reaction Status Date / Time No Known Drug Allergies Allergy Verified 01/05/25 10:43 aspartame AdvReac Migraine Verified 01/05/25 10:43 lactose AdvReac Abdominal Verified 01/05/25 10:43 Pain mushroom AdvReac Abdominal Verified 01/05/25 10:43 Pain Home Meds Previous Rx's Medication Instructions Recorded furosemide 40 mg tablet 40 mg PO QAM PRN weight gain, SOB, 08/09/24 edema #30 tabs empagliflozin 10 mg tablet 10 mg PO DAILY #90 tabs 09/02/24 (Jardiance) apixaban 5 mg tablet (Eliquis) 5 mg PO BID #180 tabs 10/04/24 sacubitril 49 mg-valsartan 51 mg 1 tab PO BID #180 tabs 10/04/24 tablet (Entresto) carvedilol 25 mg tablet 25 mg PO BIDM #180 tabs 11/15/24 chlorthalidone 25 mg tablet 25 mg PO DAILY #90 tabs 12/13/24 meclizine 25 mg tablet 25 mg PO TID PRN dizziness #20 tabs 03/10/25 Results & Data (ED) Vital Signs Vital Signs - 24 hr 03/10/25 02:35 03/10/25 02:48 03/10/25 02:49 Temperature 36.3 C L Temperature Source Oral Pulse Rate 47 L 53 L Pulse Rate [Right Finger] Pulse Rate from SpO2 Sensor Pulse Rhythm [Right Finger] Pulse Strength [Right Finger] Respiratory Rate 18 16 Respiratory Effort / Characteristics Non-Labored Spontaneous Respiratory Depth Normal Respiratory Pattern Regular Blood Pressure 223/102 H 191/110 H Blood Pressure [Left Arm] Blood Pressure Mean 142 137 Blood Pressure Mean [Left Arm] Blood Pressure Position [Left Arm] Pulse Oximetry 100 97 Oxygen Delivery Method Room Air Sepsis Recent Fever Within 48 Hours No Sepsis New/Unexplained Change in Mental Status N/A Sepsis Action Taken by Nursing No Action Required 03/10/25 02:49 03/10/25 02:53 03/10/25 03:00 Temperature Temperature Source Pulse Rate 53 L Pulse Rate [Right Finger] Pulse Rate from SpO2 Sensor Pulse Rhythm [Right Finger] Pulse Strength [Right Finger] Respiratory Rate Respiratory Effort / Characteristics Respiratory Depth Respiratory Pattern Blood Pressure 191/110 H 186/109 H Blood Pressure [Left Arm] Blood Pressure Mean 137 131 Blood Pressure Mean [Left Arm] Blood Pressure Position [Left Arm] Pulse Oximetry Oxygen Delivery Method Sepsis Recent Fever Within 48 Hours Sepsis New/Unexplained Change in Mental Status Sepsis Action Taken by Nursing 03/10/25 03:02 03/10/25 03:12 03/10/25 03:21 Temperature 36.3 C L Temperature Source Oral Pulse Rate 46 L 51 L Pulse Rate [Right Finger] 44 L Pulse Rate from SpO2 Sensor Pulse Rhythm [Right Finger] Pulse Strength [Right Finger] Respiratory Rate 15 16 14 Respiratory Effort / Characteristics Non-Labored Spontaneous Respiratory Depth Normal Respiratory Pattern Blood Pressure Blood Pressure [Left Arm] 186/109 H Blood Pressure Mean Blood Pressure Mean [Left Arm] 134 Blood Pressure Position [Left Arm] Lying Pulse Oximetry 99 96 95 Oxygen Delivery Method Room Air Sepsis Recent Fever Within 48 Hours Sepsis New/Unexplained Change in Mental Status Sepsis Action Taken by Nursing 03/10/25 03:39 03/10/25 03:54 03/10/25 03:57 Temperature Temperature Source Pulse Rate 56 L 48 L 49 L Pulse Rate [Right Finger] Pulse Rate from SpO2 Sensor Pulse Rhythm [Right Finger] Pulse Strength [Right Finger] Respiratory Rate 16 15 15 Respiratory Effort / Characteristics Respiratory Depth Respiratory Pattern Blood Pressure Blood Pressure [Left Arm] Blood Pressure Mean Blood Pressure Mean [Left Arm] Blood Pressure Position [Left Arm] Pulse Oximetry Oxygen Delivery Method Sepsis Recent Fever Within 48 Hours Sepsis New/Unexplained Change in Mental Status Sepsis Action Taken by Nursing 03/10/25 04:00 03/10/25 04:27 03/10/25 04:30 Temperature Temperature Source Pulse Rate Pulse Rate [Right Finger] Pulse Rate from SpO2 Sensor Pulse Rhythm [Right Finger] Pulse Strength [Right Finger] Respiratory Rate Respiratory Effort / Characteristics Respiratory Depth Respiratory Pattern Blood Pressure 146/93 H 188/100 H 169/95 H Blood Pressure [Left Arm] Blood Pressure Mean 118 146 117 Blood Pressure Mean [Left Arm] Blood Pressure Position [Left Arm] Pulse Oximetry Oxygen Delivery Method Sepsis Recent Fever Within 48 Hours Sepsis New/Unexplained Change in Mental Status Sepsis Action Taken by Nursing 03/10/25 04:36 03/10/25 04:42 03/10/25 04:54 Temperature Temperature Source Pulse Rate 50 L 51 L 50 L Pulse Rate [Right Finger] Pulse Rate from SpO2 Sensor 50 L 52 L 50 L Pulse Rhythm [Right Finger] Pulse Strength [Right Finger] Respiratory Rate 19 17 15 Respiratory Effort / Characteristics Respiratory Depth Respiratory Pattern Blood Pressure Blood Pressure [Left Arm] Blood Pressure Mean Blood Pressure Mean [Left Arm] Blood Pressure Position [Left Arm] Pulse Oximetry 93 94 92 Oxygen Delivery Method Sepsis Recent Fever Within 48 Hours Sepsis New/Unexplained Change in Mental Status Sepsis Action Taken by Nursing 03/10/25 05:01 03/10/25 05:03 03/10/25 05:18 Temperature Temperature Source Pulse Rate 50 L Pulse Rate [Right Finger] Pulse Rate from SpO2 Sensor 51 L Pulse Rhythm [Right Finger] Pulse Strength [Right Finger] Respiratory Rate 19 20 Respiratory Effort / Characteristics Respiratory Depth Respiratory Pattern Blood Pressure 129/91 Blood Pressure [Left Arm] Blood Pressure Mean 107 Blood Pressure Mean [Left Arm] Blood Pressure Position [Left Arm] Pulse Oximetry 92 93 Oxygen Delivery Method Sepsis Recent Fever Within 48 Hours Sepsis New/Unexplained Change in Mental Status Sepsis Action Taken by Nursing 03/10/25 05:27 03/10/25 05:30 03/10/25 05:30 Temperature Temperature Source Pulse Rate 48 L 59 L Pulse Rate [Right Finger] Pulse Rate from SpO2 Sensor 51 L 59 L Pulse Rhythm [Right Finger] Pulse Strength [Right Finger] Respiratory Rate 18 14 Respiratory Effort / Characteristics Respiratory Depth Respiratory Pattern Blood Pressure 152/104 H Blood Pressure [Left Arm] Blood Pressure Mean 122 Blood Pressure Mean [Left Arm] Blood Pressure Position [Left Arm] Pulse Oximetry 95 93 Oxygen Delivery Method Sepsis Recent Fever Within 48 Hours Sepsis New/Unexplained Change in Mental Status Sepsis Action Taken by Nursing 03/10/25 05:30 03/10/25 05:30 03/10/25 05:45 Temperature Temperature Source Pulse Rate Pulse Rate [Right Finger] Pulse Rate from SpO2 Sensor Pulse Rhythm [Right Finger] Pulse Strength [Right Finger] Respiratory Rate 15 Respiratory Effort / Characteristics Respiratory Depth Respiratory Pattern Blood Pressure 152/104 H 152/104 H Blood Pressure [Left Arm] Blood Pressure Mean 122 122 Blood Pressure Mean [Left Arm] Blood Pressure Position [Left Arm] Pulse Oximetry 95 Oxygen Delivery Method Sepsis Recent Fever Within 48 Hours Sepsis New/Unexplained Change in Mental Status Sepsis Action Taken by Nursing 03/10/25 05:51 03/10/25 06:00 03/10/25 06:00 Temperature Temperature Source Pulse Rate Pulse Rate [Right Finger] Pulse Rate from SpO2 Sensor 52 L Pulse Rhythm [Right Finger] Pulse Strength [Right Finger] Respiratory Rate 19 Respiratory Effort / Characteristics Respiratory Depth Respiratory Pattern Blood Pressure 173/92 H 173/92 H Blood Pressure [Left Arm] Blood Pressure Mean 109 109 Blood Pressure Mean [Left Arm] Blood Pressure Position [Left Arm] Pulse Oximetry 96 Oxygen Delivery Method Sepsis Recent Fever Within 48 Hours Sepsis New/Unexplained Change in Mental Status Sepsis Action Taken by Nursing 03/10/25 06:00 03/10/25 06:00 03/10/25 06:56 Temperature 36.5 C Temperature Source Oral Pulse Rate 54 L Pulse Rate [Right Finger] 54 L Pulse Rate from SpO2 Sensor 45 L Pulse Rhythm [Right Finger] Regular Pulse Strength [Right Finger] Normal Respiratory Rate 16 18 Respiratory Effort / Characteristics Non-Labored Spontaneous Respiratory Depth Normal Respiratory Pattern Regular Blood Pressure 173/92 H Blood Pressure [Left Arm] 174/109 H Blood Pressure Mean 109 Blood Pressure Mean [Left Arm] 130 Blood Pressure Position [Left Arm] Pulse Oximetry 95 95 Oxygen Delivery Method Room Air Sepsis Recent Fever Within 48 Hours Sepsis New/Unexplained Change in Mental Status Sepsis Action Taken by Nursing Laboratory Data 03/10/25 02:48 03/10/25 09:38 Lab Results 03/10/25 Range/Units 02:48 WBC 14.99 H (4.8-10.8) K/ul RBC 5.51 (4.70-6.10) M/uL Hgb 16.5 (14.0-18.0) g/dl Hct 49.2 (42.0-52.0) % MCV 89.3 (80.0-100.0) fL MCH 29.9 (25.0-34.0) pg MCHC 33.5 (32.0-36.0) g/dL RDW Std Deviation 44.2 (36.4-46.3) fL RDW Coeff of Raheem 13.5 (11.5-14.5) % Plt Count 265 (130-400) K/uL MPV 9.9 (9.4-12.4) fL Immature Gran % (Auto) 1.0 % Neut % (Auto) 75.1 % Lymph % (Auto) 14.0 % [place] % (Auto) 7.4 % Eos % (Auto) 1.9 % Baso % (Auto) 0.6 % Neut # (Auto) 11.25 H (1.40-6.50) K/uL Lymph # (Auto) 2.10 (1.20-3.40) K/uL [place] # (Auto) 1.11 H (0.11-0.59) K/uL Eos # (Auto) 0.29 (0.00-0.50) K/uL Baso # (Auto) 0.09 (0.00-0.20) K/uL Immature Gran # (Auto) 0.15 (0.01-0.20) K/uL Sodium 138 (136-145) mmol/L Potassium 3.5 (3.5-5.1) mmol/L Chloride 100 (98-107) mmol/L Carbon Dioxide 31 (21-32) mmol/L Anion Gap 7 (3-11) BUN 19 (6-23) mg/dl Creatinine 1.22 (0.6-1.4) mg/dl Est Cr Clr Drug Dosing Not Reportable eGFR 72.68 BUN/Creatinine Ratio 15.6 (10-20) Glucose 198 H (70-99(Fasting)) mg/dl Calcium 10.2 (8.6-10.3) mg/dl Total Bilirubin 0.8 (0.2-1.0) mg/dl AST 23 (13-39) U/L ALT 34 (7-52) U/L Alkaline Phosphatase 60 (34-104) U/L Total Protein 8.0 (6.0-8.3) gm/dl Albumin 5.2 H (3.4-5.0) gm/dl Globulin 2.8 (2.5-4.0) gm/dl Albumin/Globulin Ratio 1.9 (0.9-2) Urine Color Yellow Urine Appearance Clear (Clear) Urine pH 7.0 (4.5-7.5) Ur Specific [place] 1.013 (1.000-1.030) Urine Protein 2+ H (Negative) Urine Glucose (UA) 3+ H (Negative) Urine Ketones 1+ H (Negative) Urine Blood 1+ H (Negative) Urine Nitrite Negative (Negative) Urine Bilirubin Negative (Negative) Urine Urobilinogen Negative (Negative) Ur Leukocyte Esterase Negative (Negative) Urine WBC (Auto) 0-5 (0-5) /hpf Urine RBC (Auto) 0-2 (0-2) /hpf U Hyaline Cast (Auto) 0-2 (0-2) /lpf U Epithel Cells (Auto) 0-2 (0-2) /hpf Urine Bacteria (Auto) None Seen (None Seen) Administered Medications Apixaban (Apixaban 5 Mg Tablet) 5 mg PO BID FAISAL Stop: 04/09/25 09:30 Last Admin: 03/10/25 10:41 Dose: 5 mg Documented By: JAYME Chlorthalidone (Chlorthalidone 25 Mg Tab) 25 mg PO QAM FAISAL Stop: 04/09/25 09:30 Last Admin: 03/10/25 10:39 Dose: 25 mg Documented By: JAYME Empagliflozin (Empagliflozin 10 Mg Tab) 10 mg PO DAILY FAISAL Stop: 04/09/25 09:30 Last Admin: 03/10/25 10:39 Dose: 10 mg Documented By: JAYME Lactated Ringer's (Lr) 1,000 mls @ 80 mls/hr IV .[id number] [facility] Stop: 03/10/25 20:59 Last Admin: 03/10/25 08:38 Dose: 80 mls/hr Documented By: LITA Sacubitril/Valsartan (Valsartan/Sacubitril 51/49 Mg Tab) 1 tab PO BID FAISAL Stop: 04/09/25 09:30 Last Admin: 03/10/25 10:39 Dose: 1 tab Documented By: JAYME Scopolamine (Scopolamine 1 Mg/72 Hr Tdsy Patch) 1 patch TD Q72H FAISAL Stop: 04/09/25 09:30 Last Admin: 03/10/25 10:40 Dose: 1 patch Documented By: JAYME Discontinued Medications Carvedilol (Carvedilol 25 Mg Tab) 25 mg PO NOW ONE Stop: 03/10/25 09:32 Last Admin: 03/10/25 10:40 Dose: 25 mg Documented By: JAYME Promethazine HCl (Phenergan) 12.5 mg in 50.5 mls @ 202 mls/hr IV NOW STA Stop: 03/10/25 08:39 Last Infusion: 03/10/25 09:13 Dose: Infused Documented By: Admin: 03/10/25 08:38 Dose: 202 mls/hr Documented By: LITA Ioversol (Optiray 320 125ml) 125 ml IV ONCE ONE Stop: 03/10/25 04:17 Last Admin: 03/10/25 04:17 Dose: 118 ml Documented By: JOSE DAVID Lorazepam (Lorazepam 2 Mg/1 Ml Vial) Confirm Administered Dose 2 mg .ROUTE .STK- MED ONE Stop: 03/10/25 03:24 Last Admin: 03/10/25 03:34 Dose: Not Given Documented By: RASTA Lorazepam (Lorazepam 2 Mg/1 Ml Vial) 2 mg IV NOW STA Stop: 03/10/25 03:34 Last Admin: 03/10/25 03:34 Dose: 2 mg Documented By: RASTA Lorazepam (Lorazepam 2 Mg/1 Ml Vial) 1 mg IV NOW STA Stop: 03/10/25 06:38 Last Admin: 03/10/25 06:41 Dose: 2 mg Documented By: DOMINIC Meclizine HCl (Meclizine Hcl 25 Mg Tab) 25 mg PO NOW STA Stop: 03/10/25 05:33 Last Admin: 03/10/25 05:38 Dose: 25 mg Documented By: DOMINIC Ondansetron HCl (Ondansetron Inj 2 Mg/Ml 2 Ml Vial) Confirm Administered Dose 4 mg .ROUTE .STK-MED ONE Stop: 03/10/25 03:24 Last Admin: 03/10/25 03:34 Dose: Not Given Documented By: RASTA Ondansetron HCl (Ondansetron Inj 2 Mg/Ml 2 Ml Vial) 4 mg IV NOW STA Stop: 03/10/25 03:34 Last Admin: 03/10/25 03:33 Dose: 4 mg Documented By: RASTA Ondansetron HCl (Ondansetron Inj 2 Mg/Ml 2 Ml Vial) 4 mg IV NOW STA Stop: 03/10/25 06:38 Last Admin: 03/10/25 06:41 Dose: 4 mg Documented By: DOMINIC Imaging Data Radiologist's Impression: Head CTA 03/10/25 03:44 EXAM: CT angio head wo/w CLINICAL HISTORY: eval posterior circulation - dizziness TECHNIQUE: Contrast enhanced thin slice CT angiography scan of the cerebral vessels was performed without and with intravenous contrast. Angiographic images were processed, 3D MIP images were acquired for interpretation. Contiguous axial images were obtained. Reformatted coronal and sagittal images were also reviewed. If IV contrast material had not been administered, the likelihood of detecting abnormalities relevant to the patients condition would have been substantially decreased. CT scan was performed according to ALARA (as low as reasonable achievable). COMPARISON: none. FINDINGS: BRAIN: The brain shows normal morphology, attenuation, and volume for age. No evidence of space occupying lesion, hemorrhage, edema, mass effect, midline shift, extra axial collection, or hydrocephalus is noted. Ventricles, sulci, and basal cisterns are symmetric and normal in size and configuration. The esposito-white matter differentiation is preserved. Bilateral maxillary sinusitis. Rest of paranasal sinuses and mastoid air cells are well aerated. Orbital contents are within normal limits. Bony structures are intact. CTA BRAIN: Atherosclerotic calcification are noted involving intracranial segment of bilateral vertebral arteries without significant stenosis. Bilateral internal carotid arteries show normal course, calibre and opacification in the canalicular and cavernous part. Their division into the anterior cerebral artery and middle cerebral artery is defined. A1, A2 and M1, M2 segments are normal on both the sides. Bilateral vertebral arteries are seen to unite the form the basilar artery in a normal fashion. Basilar artery shows normal course, caliber and opacification. Its division into the posterior cerebral arteries is defined. Bilateral P1 and P2 segments are normal. Visualized venous structures show normal opacification. No evidence of intracranial aneurysm or AV malformation is seen. IMPRESSION: 1. No evidence of acute intracranial abnormality is demonstrated 2. No evidence of stenosis or aneurysm. No evidence of dissection. 3. Atherosclerotic calcification are noted involving intracranial segment of bilateral vertebral arteries without significant stenosis. Electronically signed by Dayton Lomax 03-10-2025 05:08 AM Neck CTA 03/10/25 03:49 EXAM: CT angio neck with con CLINICAL HISTORY: dizziness - eval posterior circulation TECHNIQUE: Contrast enhanced thin slice CT angiography scan of the carotid vessels was performed with intravenous contrast. Angiographic images were processed, 3D MIP images were acquired for interpretation.Contiguous axial images were obtained. Reformatted coronal and sagittal images were also reviewed. If IV contrast material had not been administered, the likelihood of detecting abnormalities relevant to the patients condition would have been substantially decreased. CT scan was performed according to ALARA (as low as reasonable achievable). COMPARISON: None. FINDINGS: Atherosclerotic calcification is noted involving the intracranial segment of bilateral vertebral artery without significant stenosis. Included great vessels of the aortic arch are grossly unremarkable. Common carotid artery, carotid Bulb, internal carotid artery , and origin of the external carotid artery are well opacified. Vertebral arteries are well opacified. Jugular veins are well opacified. Included lung apices are grossly unremarkable. Thyroid gland appears unremarkable. IMPRESSION: 1. No evidence of stenosis or aneurysm. No evidence of dissection. 2.Atherosclerotic calcification is noted involving the intracranial segment of bilateral vertebral artery without significant stenosis. Electronically signed by Dayton Lomax 03-10-2025 04:53 AM Discharge Plan Visit Data Chief Complaint: Vertigo Stated Complaint: VOMITING, VERTIGO ED Provider: Nicolasa Ruiz Discharge Problem: Vertigo Patient Disposition: Admitted As Inpatient Condition: Fair Discharge Instructions Interventions: ED Discharge Assessment Last Done: 03/10/25 09:12
--- NOTE | 2025-03-10 05:09 | CT Scan Report ---
EXAM: CT angio head wo/w CLINICAL HISTORY: eval posterior circulation - dizziness TECHNIQUE: Contrast enhanced thin slice CT angiography scan of the cerebral vessels was performed without and with intravenous contrast. Angiographic images were processed, 3D MIP images were acquired for interpretation. Contiguous axial images were obtained. Reformatted coronal and sagittal images were also reviewed. If IV contrast material had not been administered, the likelihood of detecting abnormalities relevant to the patients condition would have been substantially decreased. CT scan was performed according to ALARA (as low as reasonable achievable). COMPARISON: none. FINDINGS: BRAIN: The brain shows normal morphology, attenuation, and volume for age. No evidence of space occupying lesion, hemorrhage, edema, mass effect, midline shift, extra axial collection, or hydrocephalus is noted. Ventricles, sulci, and basal cisterns are symmetric and normal in size and configuration. The esposito-white matter differentiation is preserved. Bilateral maxillary sinusitis. Rest of paranasal sinuses and mastoid air cells are well aerated. Orbital contents are within normal limits. Bony structures are intact. CTA BRAIN: Atherosclerotic calcification are noted involving intracranial segment of bilateral vertebral arteries without significant stenosis. Bilateral internal carotid arteries show normal course, calibre and opacification in the canalicular and cavernous part. Their division into the anterior cerebral artery and middle cerebral artery is defined. A1, A2 and M1, M2 segments are normal on both the sides. Bilateral vertebral arteries are seen to unite the form the basilar artery in a normal fashion. Basilar artery shows normal course, caliber and opacification. Its division into the posterior cerebral arteries is defined. Bilateral P1 and P2 segments are normal. Visualized venous structures show normal opacification. No evidence of intracranial aneurysm or AV malformation is seen. IMPRESSION: 1. No evidence of acute intracranial abnormality is demonstrated 2. No evidence of stenosis or aneurysm. No evidence of dissection. 3. Atherosclerotic calcification are noted involving intracranial segment of bilateral vertebral arteries without significant stenosis. Electronically signed by Dayton Lomax 03-10-2025 05:08 AM
[2025-03-10] MEDS: MECLIZINE HCL 25 MG TAB PO STA (05:38)
[2025-03-10] MEDS: LACTATED RINGER'S 1,000 ML IV SCH (08:38)
[2025-03-10] MEDS: PROMETHAZINE 12.5 MG/50.5 ML BAG IV STA (08:38)
--- NOTE | 2025-03-10 08:51 | History & Physical Report ---
Date of Service March 10, 2025 Assessment & Plan (1) Vertigo: (2) Heart failure with improved ejection fraction (HFimpEF): (3) Chronic kidney disease, stage 3a: (4) Prediabetes: Plan 49-year-old male with history of heart failure proved ejection fraction and atrial flutter currently in sinus rhythm who presents with intractable vertigo #Vertigo patient have MRI scan of his brain. Patient will be given transdermal scopolamine patch and as needed lorazepam for vertigo. In the emergency department the meclizine did not do significant improvement for him. With regard to his intractable nausea vomiting swished with vertigo he will be given a liter of lactated Ringer's cautiously with his heart failure he will have antiemetics of Zofran and promethazine #Heart failure improved ejection fraction. Patient currently is not in exacerbation. He is maintained on his home medications of carvedilol 25 twice daily chlorthalidone 25 a day Jardiance 10 a day and Entresto twice daily EKG on presentation shows sinus bradycardia he does have some intraventricular conduction delays and ST changes that are similar to old. Will check a troponin #Prediabetes. Patient's glucose on serology is 198. Will continue to watch this he takes Jardiance for both heart failure and diabetes if continues to be elevated we may consider sliding scale coverage. #DVT prevention is early ambulation History of Present Illness Primary Care Provider: Ryne Fishman, 49-year-old male with a history of heart failure improved ejection fraction felt to be secondary to previous atrial flutter who presents after awakening at night and developing vertiginous symptoms. Patient states he rolled over in bed and initially felt queasy this did not go away when he got up to the bathroom he had visual instability where he felt the room was moving about he vomited multiple times at home and present to the emergency department with the help of a friend. He vomited again in the emergency department. He feels somewhat better after having some sleep and some antiemetic therapy along with some Ativan. The patient still has symptoms which are reproducible with eye movement and head movement. He had an upper respiratory infection about 2 weeks ago which he says was a sinus infection which improved. He has had no head trauma. Allergies Allergy/AdvReac Type Severity Reaction Status Date / Time No Known Drug Allergies Allergy Verified 01/05/25 10:43 aspartame AdvReac Migraine Verified 01/05/25 10:43 lactose AdvReac Abdominal Verified 01/05/25 10:43 Pain mushroom AdvReac Abdominal Verified 01/05/25 10:43 Pain Home Medications Medication Instructions Recorded Confirmed Type furosemide 40 mg tablet 40 mg PO QAM PRN weight gain, SOB, 08/09/24 01/05/25 Rx edema #30 tabs empagliflozin 10 mg tablet 10 mg PO DAILY #90 tabs 09/02/24 01/05/25 Rx (Jardiance) apixaban 5 mg tablet (Eliquis) 5 mg PO BID #180 tabs 10/04/24 01/05/25 Rx sacubitril 49 mg-valsartan 51 mg 1 tab PO BID #180 tabs 10/04/24 01/05/25 Rx tablet (Entresto) carvedilol 25 mg tablet 25 mg PO BIDM #180 tabs 11/15/24 01/05/25 Rx chlorthalidone 25 mg tablet 25 mg PO DAILY #90 tabs 12/13/24 01/05/25 Rx meclizine 25 mg tablet 25 mg PO TID PRN dizziness #20 tabs 03/10/25 Rx Past Med/Surg History Problem List (Updated 03/10/25 @ 06:20 by Nicolasa Ruiz DO) Vertigo (Acute) Left ventricular hypertrophy Bradycardia Heart failure with improved ejection fraction (HFimpEF) Atrial flutter Hyperkalemia Chronic kidney disease, stage 3a Anemia Vitamin D deficiency Prediabetes Proteinuria Cardiomyopathy Acute HFrEF (heart failure with reduced ejection fraction) Left ventricular dysfunction MATTHIEU (acute kidney injury) HTN (hypertension) Medical History Dilatation of thoracic aorta Surgical History No history of previous surgery Family History Grandfather (Paternal) Cancer Lung cancer Prostate cancer Grandmother (Maternal) Cancer Father Stroke Myocardial infarction Grandfather (Maternal) Stroke Denies family history of Breast cancer Colorectal cancer Social History Smoking Status: Never smoker Hx Alcohol Use: Yes Alcohol type: beer Hx Substance Use: No Preferred Language: Bangladeshi Communication Ability: Effective Baton Teacher Required: No Beliefs That Will Affect Care: None Current Living Situation: Alone current occupational status: employed 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 @ [employer] Feels Safe at Home: Yes Assistive Devices: None Review of Systems Review of Systems: Mild distress and fatigue no headache, he says his vision is wavy when he looks around no speech or swallowing issues no chest pain, pressure or palpitations no shortness of breath, cough or wheezes no abdominal pain, has had nausea and vomiting even vomiting after wili crackers she had an ER no dysuria, hematuria or frequency no focal joint pain or swelling no back pain, CVA tenderness or radicular pain no bruising, bleeding or rashes no focal signs of weakness or numbness or altered sensation no complaints of anxiety or depression.. Physical Exam Physical Exam: The patient appeared well nourished and normally developed. Vital signs as documented. Head exam is normocephalic atraumatic PERRL EOMI there is no facial droop Patient has no nystagmus although symptoms are reproduced when looking to the far left Neck is without JVD, thyromegaly, or carotid bruits. Lungs are clear to auscultation, no focal loss of breath sounds Cardiac exam, Rhythm is regular.. No murmurs, rubs or gallops. Abdominal exam reveals normal bowel sounds, soft non tender, no masses Extremities are nonedematous and both pedal pulses are present Neurologic exam is alert and oriented, no focal loss of strength or sensation Skin is without bruises or rashes Psychologically is without concerns for anxiety or depression.. Results & Data Results & Data Vital Signs (Past 12 Hours) Vital Signs Temp Pulse Pulse Resp BP BP Pulse Ox 03/10/25 06:56 97.7 F 54 L 18 174/109 H 95 03/10/25 06:00 54 L 16 95 03/10/25 06:00 173/92 H 03/10/25 06:00 173/92 H 03/10/25 06:00 173/92 H 03/10/25 05:51 19 96 03/10/25 05:45 15 95 03/10/25 05:30 152/104 H 03/10/25 05:30 152/104 H 03/10/25 05:30 152/104 H 03/10/25 05:30 59 L 14 93 03/10/25 05:27 48 L 18 95 03/10/25 05:18 50 L 20 93 03/10/25 05:03 19 92 03/10/25 05:01 129/91 03/10/25 04:54 50 L 15 92 03/10/25 04:42 51 L 17 94 03/10/25 04:36 50 L 19 93 03/10/25 04:30 169/95 H 03/10/25 04:27 188/100 H 03/10/25 04:00 146/93 H 03/10/25 03:57 49 L 15 03/10/25 03:54 48 L 15 03/10/25 03:39 56 L 16 03/10/25 03:21 51 L 14 95 03/10/25 03:12 46 L 16 96 03/10/25 03:02 97.3 F L 44 L 15 186/109 H 99 03/10/25 03:00 186/109 H 03/10/25 02:53 53 L 03/10/25 02:49 191/110 H 03/10/25 02:49 191/110 H 03/10/25 02:48 53 L 16 97 03/10/25 02:35 97.3 F L 47 L 18 223/102 H 100 O2 Del Method 03/10/25 06:56 Room Air 03/10/25 06:00 03/10/25 06:00 03/10/25 06:00 03/10/25 06:00 03/10/25 05:51 03/10/25 05:45 03/10/25 05:30 03/10/25 05:30 03/10/25 05:30 03/10/25 05:30 03/10/25 05:27 03/10/25 05:18 03/10/25 05:03 03/10/25 05:01 03/10/25 04:54 03/10/25 04:42 03/10/25 04:36 03/10/25 04:30 03/10/25 04:27 03/10/25 04:00 03/10/25 03:57 03/10/25 03:54 03/10/25 03:39 03/10/25 03:21 03/10/25 03:12 03/10/25 03:02 Room Air 03/10/25 03:00 03/10/25 02:53 03/10/25 02:49 03/10/25 02:49 03/10/25 02:48 03/10/25 02:35 Room Air Laboratory Results Reviewed CBC does have mild leukocytosis reviewed chemistry reviewed CT angiography of head and neck Code Status & VTE Plan VTE Prophylaxis Plan VTE Prophylaxis will be ordered: Yes PG Care Time/CCT Total # of Minutes Spent Total Time Spent with Patient: Total time spent is greater than 50% in coordination of care (as documented) at patient's floor/unit and/or counseling patient: Coding Level of Care Code 41085 INT INP/OBS CARE 3/75MIN Diagnoses Vertigo R42 Heart failure with improved ejection fraction (HFimpEF) I50.32 Chronic kidney disease, stage 3a N18.31 Prediabetes R73.03
[2025-03-10] MEDS ORDERED: hydrALAZINE HCL 20 MG/ML VIAL IV PRN (09:31)
[2025-03-10] MEDS ORDERED: ONDANSETRON INJ 2 MG/ML 2 ML VIAL IV PRN (09:31)
[2025-03-10] MEDS ORDERED: LORazepam 2 MG/1 ML VIAL IV PRN (09:31)
[2025-03-10] MEDS ORDERED: ACETAMINOPHEN 325 MG TAB PO PRN (09:31)
[2025-03-10 10:23] LABS: Calcium 9.8 mg/dl (8.6-10.3); Creatinine Clr Calc Pharmacy 104.9 ml/min; Potassium 3.4 mmol/L (3.5-5.1)
[2025-03-10 10:29] LABS: Troponin I High Sensitivity 15.3 pg/ml (0-20)
[2025-03-10] MEDS: EMPAGLIFLOZIN 10 MG TAB PO SCH (10:39)
[2025-03-10] MEDS: VALSARTAN/SACUBITRIL 51/49 MG TAB PO SCH (10:39)
[2025-03-10] MEDS: CHLORTHALIDONE 25 MG TAB PO SCH (10:39)
[2025-03-10] MEDS: carvediloL 25 MG TAB PO ONE (10:40)
[2025-03-10] MEDS: SCOPOLAMINE 1 MG/72 HR TDSY PATCH TD SCH (10:40)
[2025-03-10] MEDS: APIXABAN 5 MG TABLET PO SCH (10:41)
--- NOTE | 2025-03-10 12:42 | Magnetic Resonance Report ---
MR brain wo con HISTORY: 49 years-old Male rule out stroke acute stroke like symptoms COMPARISON: CTA head of same day TECHNIQUE: Multiplanar multisequence MRI of the brain was obtained without IV contrast FINDINGS: There is no restricted diffusion to suggest acute or subacute infarct. Midline structures appear unre markable. There is no acute intracranial hemorrhage, midline shift, abnormal extra-axial collection, hydrocephalus or intra-axial mass. There is a subcentimeter focus of blooming artifact noted within t he left lateral nucleus on image 12 series 6 which may represent hemosiderin. The volume and signal c haracteristics of the brain parenchyma are otherwise within normal limits. Cerebral venous sinuses and major arterial flow voids appear patent. The skull, orbits and soft tissu es are unremarkable. Mastoid air cells are clear. 2.8 cm polypoid mucosal thickening noted within the left maxillary sinus. IMPRESSION: No acute intracranial abnormality. No acute or subacute infarct. ACT 112: Negative or not required by law. The above report was generated using voice recognition software. It may contain grammatical, syntax o r spelling errors. Electronically signed by: Tristin Solano M.D. 03/10/2025 12:41 PM
[2025-03-10] MEDS: CHECK SCOPOLAMINE PATCH PLACEMENT SCH (17:00)
[2025-03-10] MEDS: carvediloL 25 MG TAB PO SCH (17:15)
[2025-03-11 07:49] LABS: Hematocrit (blood only) 46.7 % (42.0-52.0); Hemoglobin 15.8 g/dl (14.0-18.0); Mean Corpuscular Hgb Conc 33.8 g/dL (32.0-36.0); Mean Corpuscular Volume 88.8 fL (80.0-100.0); Mean Platelet Volume 9.9 fL (9.4-12.4); Platelet Count 224 K/uL (130-400); RDW Standard Deviation 45.1 fL (36.4-46.3); Red Blood Count 5.26 M/uL (4.70-6.10); White Blood Count 10.33 K/ul (4.8-10.8)
[2025-03-11 08:22] LABS: BUN Creatinine Ratio 14.3 (10-20); Calcium 9.4 mg/dl (8.6-10.3); Creatinine Clr Calc Pharmacy 88.7 ml/min; Potassium 3.2 mmol/L (3.5-5.1)
[2025-03-11] MEDS: POTASSIUM CHLORIDE CRTAB 20 MEQ TABCR PO STA (10:00)
[2025-03-11] MEDS: PROCHLORPERAZINE 10 MG in SYRINGE 8 ML IV ONE (20:22)
[2025-03-11] MEDS: diphenhydrAMINE 50 MG/ML VIAL IV ONE (20:23)
[2025-03-11] MEDS: EMPAGLIFLOZIN 10 MG TAB PO SCH (20:25)
--- NOTE | 2025-03-11 22:58 | Hospitalist Progress Note ---
Date of Service March 11, 2025 Assessment & Plan (1) Vertigo: (2) Heart failure with improved ejection fraction (HFimpEF): (3) Chronic kidney disease, stage 3a: (4) Prediabetes: Plan 49-year-old male with history of heart failure proved ejection fraction and atrial flutter currently in sinus rhythm who presents with intractable vertigo #Vertigo patient have MRI scan of his brain. Patient will be given transdermal scopolamine patch and as needed lorazepam for vertigo. In the emergency department the meclizine did not do significant improvement for him. With regard to his intractable nausea vomiting swished with vertigo he will be given a liter of lactated Ringer's cautiously with his heart failure he will have antiemetics of Zofran and promethazine On 03/11 his symptoms are now improving. His MRI brain was negative. The intensity of his symptoms have improved. May have a component of complex migarine. will order a migraine cocktail #Heart failure improved ejection fraction. Patient currently is not in exacerbation. He is maintained on his home medications of carvedilol 25 twice daily chlorthalidone 25 a day Jardiance 10 a day and Entresto twice daily EKG on presentation shows sinus bradycardia he does have some intraventricular conduction delays and ST changes that are similar to old. Will check a troponin #Prediabetes. Patient's glucose on serology is 198. Will continue to watch this he takes Jardiance for both heart failure and diabetes if continues to be elevated we may consider sliding scale coverage. #DVT prevention is early ambulation Admission and Anticipated Discharge Date Admission Date: March 10, 2025 Subjective Patient reports his dizziness remains present, but it is improving. Review of Systems Review of Systems: All systems reviewed & are unremarkable except as noted in HPI & below Physical Exam Physical Exam: The patient appeared well nourished and normally developed. Head exam is normocephalic atraumatic PERRL EOMI Neck is without JVD, thyromegaly, or carotid bruits. Lungs are clear to auscultation, no focal loss of breath sounds Cardiac exam, Rhythm is regular.. No murmurs, rubs or gallops. Results & Data Results & Data Vital Signs (Past 12 Hours) Vital Signs Temp Pulse Pulse Resp BP Pulse Ox O2 Del Method 03/11/25 19:02 36.8 C 59 L 18 153/97 H 96 Room Air 03/11/25 19:00 56 L 03/11/25 16:32 36.7 C 53 L 18 159/97 H 96 Room Air 03/11/25 11:04 36.7 C 57 L 18 158/94 H 93 Room Air PG Care Time/CCT Total # of Minutes Spent Total Time Spent with Patient: Total time spent is greater than 50% in coordination of care (as documented) at patient's floor/unit and/or counseling patient: Coding Level of Care Code 11114 SUB INP/OBS CARE 3/50MIN Diagnoses Vertigo R42 Heart failure with improved ejection fraction (HFimpEF) I50.32 Chronic kidney disease, stage 3a N18.31 Prediabetes R73.03
[2025-03-12 07:27] LABS: Hematocrit (blood only) 46.3 % (42.0-52.0); Hemoglobin 15.7 g/dl (14.0-18.0); Mean Corpuscular Hgb Conc 33.9 g/dL (32.0-36.0); Mean Corpuscular Volume 88.5 fL (80.0-100.0); Mean Platelet Volume 9.8 fL (9.4-12.4); Platelet Count 207 K/uL (130-400); RDW Coefficient of Variation 13.8 % (11.5-14.5); RDW Standard Deviation 44.3 fL (36.4-46.3); Red Blood Count 5.23 M/uL (4.70-6.10); White Blood Count 6.94 K/ul (4.8-10.8)
[2025-03-12 07:55] LABS: C Reactive Protein 0.82 mg/dl (0-0.5); Calcium 9.3 mg/dl (8.6-10.3); Potassium 3.3 mmol/L (3.5-5.1)
[2025-03-12 10:49] VITALS: RESP 18
--- NOTE | 2025-03-12 14:45 | Electrocardiogram Report ---
Test Reason : Blood Pressure : */* mmHG Vent. Rate : 54 BPM Atrial Rate : 54 BPM P-R Int : 158 ms QRS Dur : 190 ms QT Int : 542 ms P-R-T Axes : 61 36 65 degrees QTcB Int : 513 ms Sinus bradycardia with marked sinus arrhythmia with occasional Premature ventricular complexes Right bundle branch block Abnormal ECG When compared with ECG of 06-Sep-2024 09:26, Premature ventricular complexes are now Present Confirmed by Lara Mccracken (Ike) on 03/12/2025 2:45:07 PM Referred By: REFERRED SELF Confirmed By: Lara Mccracken
[2025-03-12] MEDS: POTASSIUM CHLORIDE CRTAB 20 MEQ TABCR PO STA (16:47)
--- NOTE | 2025-03-12 19:05 | Hospitalist Progress Note ---
Date of Service March 12, 2025 Assessment & Plan (1) Vertigo: (2) Heart failure with improved ejection fraction (HFimpEF): (3) Chronic kidney disease, stage 3a: (4) Prediabetes: Plan 49-year-old male with history of heart failure proved ejection fraction and atrial flutter currently in sinus rhythm who presents with intractable vertigo #Vertigo patient have MRI scan of his brain. Patient will be given transdermal scopolamine patch and as needed lorazepam for vertigo. In the emergency department the meclizine did not do significant improvement for him. With regard to his intractable nausea vomiting swished with vertigo he will be given a liter of lactated Ringer's cautiously with his heart failure he will have antiemetics of Zofran and promethazine On 03/11 his symptoms are now improving. His MRI brain was negative. The intensity of his symptoms have improved. May have a component of complex migarine. will order a migraine cocktail x2 days PM improved on 03/12, will discharge in AM of 03/13 #Heart failure improved ejection fraction. Patient currently is not in exacerbation. He is maintained on his home medications of carvedilol 25 twice daily chlorthalidone 25 a day Jardiance 10 a day and Entresto twice daily EKG on presentation shows sinus bradycardia he does have some intraventricular conduction delays and ST changes that are similar to old. Will check a troponin #Prediabetes. Patient's glucose on serology is 198. Will continue to watch this he takes Jardiance for both heart failure and diabetes if continues to be elevated we may consider sliding scale coverage. #DVT prevention is early ambulation Admission and Anticipated Discharge Date Admission Date: March 10, 2025 Subjective Patient not quite at baseline, using walker to ambulate but slowly improving. Physical Exam Physical Exam: The patient appeared well nourished and normally developed. Head exam is normocephalic atraumatic PERRL EOMI Neck is without JVD, thyromegaly, or carotid bruits. Lungs are clear to auscultation, no focal loss of breath sounds Cardiac exam, Rhythm is regular.. No murmurs, rubs or gallops. Results & Data Results & Data Vital Signs (Past 12 Hours) Vital Signs Temp Pulse Pulse Resp BP Pulse Ox O2 Del Method 03/12/25 16:26 37.0 C 54 L 18 148/97 H 94 Room Air 03/12/25 10:48 36.8 C 49 L 18 144/90 H 97 Room Air 03/12/25 09:00 72 03/12/25 08:35 53 L 03/12/25 07:39 36.6 C 56 L 19 145/95 H 95 Room Air PG Care Time/CCT Total # of Minutes Spent Total Time Spent with Patient: Total time spent is greater than 50% in coordination of care (as documented) at patient's floor/unit and/or counseling patient: Coding Level of Care Code 51375 SUB INP/OBS CARE 2/35MIN Diagnoses Vertigo R42 Heart failure with improved ejection fraction (HFimpEF) I50.32 Chronic kidney disease, stage 3a N18.31 Prediabetes R73.03
[2025-03-12] MEDS: diphenhydrAMINE 50 MG/ML VIAL IV ONE (20:41)
[2025-03-12] MEDS: PROCHLORPERAZINE 10 MG in SYRINGE 8 ML IV ONE (20:41)
[2025-03-12 23:35] VITALS: TEMP 97.9
[2025-03-13 06:22] LABS: Hematocrit (blood only) 47.8 % (42.0-52.0); Hemoglobin 16.1 g/dl (14.0-18.0); Mean Corpuscular Hemoglobin 29.8 pg (25.0-34.0); Mean Corpuscular Hgb Conc 33.7 g/dL (32.0-36.0); Mean Corpuscular Volume 88.4 fL (80.0-100.0); Mean Platelet Volume 9.8 fL (9.4-12.4); Platelet Count 237 K/uL (130-400); RDW Coefficient of Variation 13.8 % (11.5-14.5); RDW Standard Deviation 44.5 fL (36.4-46.3); Red Blood Count 5.41 M/uL (4.70-6.10); White Blood Count 7.45 K/ul (4.8-10.8)
[2025-03-13 06:38] LABS: Calcium 9.3 mg/dl (8.6-10.3); Creatinine Clr Calc Pharmacy 79.5 ml/min; Magnesium 2.3 mg/dl (1.7-2.4); Potassium 3.7 mmol/L (3.5-5.1)
[2025-03-13 06:54] LABS: Thyroid Stimulating Hormone 2.655 uIu/ml (0.300-4.500)
--- NOTE | 2025-03-13 07:33 | Hospitalist Progress Note ---
Date of Service March 13, 2025 Assessment & Plan (1) Vertigo: (2) Heart failure with improved ejection fraction (HFimpEF): (3) Chronic kidney disease, stage 3a: (4) Prediabetes: Plan 49-year-old male with history of heart failure proved ejection fraction and atrial flutter currently in sinus rhythm who presents with intractable vertigo #Vertigo patient have MRI scan of his brain. Patient will be given transdermal scopolamine patch and as needed lorazepam for vertigo. In the emergency department the meclizine did not do significant improvement for him. With regard to his intractable nausea vomiting swished with vertigo he will be given a liter of lactated Ringer's cautiously with his heart failure he will have antiemetics of Zofran and promethazine On 03/11 his symptoms are now improving. His MRI brain was negative. The intensity of his symptoms have improved. May have a component of complex migarine. will order a migraine cocktail x2 days PM improved on 03/12, will discharge in AM of 03/13 #Heart failure improved ejection fraction. Patient currently is not in exacerbation. He is maintained on his home medications of carvedilol 25 twice daily chlorthalidone 25 a day Jardiance 10 a day and Entresto twice daily EKG on presentation shows sinus bradycardia he does have some intraventricular conduction delays and ST changes that are similar to old. Will check a troponin *Refused jardiance last evening #Prediabetes. Patient's glucose on serology is 198. Will continue to watch this he takes Jardiance for both heart failure and diabetes if continues to be elevated we may consider sliding scale coverage. Cr 1.5, ? related to hypoperfusion w/ his low HR? On coreg 25mg BID, repeat ECHO w/ improved EF, no longer in aflutter. #DVT prevention is early ambulation Admission and Anticipated Discharge Date Admission Date: March 10, 2025 Results & Data Results & Data Vital Signs (Past 12 Hours) Vital Signs Temp Pulse Pulse Resp BP Pulse Ox O2 Del Method 03/13/25 03:10 36.6 C 53 L 18 135/90 96 Room Air 03/12/25 22:51 36.6 C 58 L 18 121/86 97 Room Air 03/12/25 21:39 56 L 03/12/25 19:54 36.7 C 57 L 18 132/86 93 Room Air PG Care Time/CCT Total # of Minutes Spent Total Time Spent with Patient: Total time spent is greater than 50% in coordination of care (as documented) at patient's floor/unit and/or counseling patient: Coding Diagnoses Vertigo R42 Heart failure with improved ejection fraction (HFimpEF) I50.32 Chronic kidney disease, stage 3a N18.31 Prediabetes R73.03
--- NOTE | 2025-03-13 09:04 | Discharge Summary ---
Discharge Summary Date of Service March 13, 2025 Principal Dx & Hospital Course #1 = Principal Diagnosis (1) Vertigo: (2) Heart failure with improved ejection fraction (HFimpEF): (3) Chronic kidney disease, stage 3a: (4) Prediabetes: Plan 49-year-old male with history of heart failure (now w/ preserved ejection fraction, prior reduction suspected 2nd to afib w/ elevated HR/ atrial flutter) presented with intractable vertigo. In sinus rhythm on admission #Vertigo #Nausea/vomiting #HFpEF #Hx aflutter w/ rapid ventricular response -- SR/SB on telemetry MRI of brain negative, scopolamine patch provided. Noted recent viral illness and ?viral related vs BPPV vs migraine given hx Was provided 1L LR and antiemetics, improvement in symptoms on 03/11 but ongoing inpatient stay and suspected component of complex migrain and given migraine cocktail evening 03/11 and repeated evening 03/12 and patient with significant improvement in symptoms and wanting to go home. Did give rx for PT for vestibular therapy but also discussed patient w/ HR in 40-50s at times on coreg 25mg BID and could be related but w/ his cardiac hx cautious consideration for reduction but w/ BP have continued current CHF medications and instructed to monitor his HR at home and discuss w/ PCP/cardiology about possible reduction if felt reasonable. Trop negative on check Also noted K low 3.4 on admission but hx of MATTHIEU w/ hyperkalemia but was on spironolactone in the past and now on chlorthalidone (prior lasix use prn w/o lows but hasn't needed). Replacement ordered prior and 3.7 prior to discharge but given hx hyperkalemia recommended repeat BMP w/ PCP this upcoming week/banana daily in the meantime and if remains low would consider replacement to keep stores danielito w/ hx flutter. TSH added to labs and was wnl. Note Cr 1.5 prior to dc but making urine per patient and clear yellow in color and rec f/u PCP about BMP this upcoming wk as well Notes For Next Care Provider Consideration to reduce coreg for bradycardia but w/ hx aflutter w/ rvr and cardiomyopathy have been continued given improvement in sx, ?viral related Rec repeat BMP this upcoming week to see if any supplemental K required with ongoing chlorthalidone w/ hx aflutter, however deferred at dc given hx MATTHIEU and hyperkalemia. W reports migraine, prior ferritin level in 2023 low, could consider repeating. Hgb stable 16 however but could be considered if ongoing issues w/ migraine for LEXI Did rx PT for vestibular therapy as desired Medication Changes From Visit None Admission HPI Per Admitting Provider 49-year-old male with a history of heart failure improved ejection fraction felt to be secondary to previous atrial flutter who presents after awakening at night and developing vertiginous symptoms. Patient states he rolled over in bed and initially felt queasy this did not go away when he got up to the bathroom he had visual instability where he felt the room was moving about he vomited multiple times at home and present to the emergency department with the help of a friend. He vomited again in the emergency department. He feels somewhat better after having some sleep and some antiemetic therapy along with some Ativan. The patient still has symptoms which are reproducible with eye movement and head movement. He had an upper respiratory infection about 2 weeks ago which he says was a sinus infection which improved. He has had no head trauma. Admission Exam Per Admitting Provider The patient appeared well nourished and normally developed. Vital signs as documented. Head exam is normocephalic atraumatic PERRL EOMI there is no facial droop Patient has no nystagmus although symptoms are reproduced when looking to the far left Neck is without JVD, thyromegaly, or carotid bruits. Lungs are clear to auscultation, no focal loss of breath sounds Cardiac exam, Rhythm is regular.. No murmurs, rubs or gallops. Abdominal exam reveals normal bowel sounds, soft non tender, no masses Extremities are nonedematous and both pedal pulses are present Neurologic exam is alert and oriented, no focal loss of strength or sensation Skin is without bruises or rashes Psychologically is without concerns for anxiety or depression.. Discharge Exam General: 49yo male ambulating in the room with , NAD, reports feeling better, ready for dc, in room Head atraumatic, normocephalic, mm, trachea midline Resp; even/unlabored, no wheezing, on room air CV: sinus, jimbo to 50s, +systolic murmur, b/l edema at baseline GI: +BS, soft/NT no lacey, voiding spontaneously MSK/Neuro: ambulating with walker but without any supervision. Strength equal bilaterally and no gait abn witnessed w ambulation in the halls Psych: AOx3, cooperative/pleasant during encounter Discharge Plan Discharge Items Patient Disposition: Home - Self-Care Reason For Visit: INTACTIABLE VERTIGO, HYPERTENSION Discharge Diagnosis: Vertigo, Migraine, HTN Condition on Discharge: Fair Goals: You have been hospitalized for an acute medical problem. During your stay at [facility], we have made an effort to correct the problem that brought you to the hospital while keeping you as comfortable as possible. Medications were used to bring your condition under control and your discharge instructions will include directions for any medications you should take after leaving the hospital. Please make sure you see your Primary Care Provider as part of your follow up plan. Activity: As commented below Non-emergency contact: Primary Care Provider and Associate Partner Call non-emergency contact if: you have any medication questions, your symptoms worsen, your pain is not controlled, your pain is concerning for you and you have a fever Follow-up/Referrals: Ryne Fishman DO [Primary Care Provider] - Diet: Heart Healthy Addtl Attending Provider Instructions: You have been hospitalized for vertigo, which may be from a recent viral process or migraine. Imaging was negative for acute stroke or other abnormality. You were treated for a migraine with a migraine cocktail with improvement in symptoms. You should follow up with primary care and cardiology regarding your cardiomyopathy and discuss possible reduction in your coreg for heart rate if remains on the lower side as this can also contribute to symptoms but needed for your cardiac condition and prior afib/flutter. Please return to the ER with any return/worsening symptoms or for any other symptoms concerning for you. It has been a pleasure being a part of the medical team providing for you while you have been in the hospital . Take care. Pending Studies at Discharge: No Stand-Alone Forms: [facility], Smoking Cessation Medications and DC Order Prescriptions: Continued Jardiance 10 mg tablet 10 mg PO DAILY Qty: 90 3RF Eliquis 5 mg tablet 5 mg PO BID Qty: 180 3RF Entresto 49-51 mg tablet 1 tab PO BID Qty: 180 3RF carvedilol 25 mg tablet 25 mg PO BIDM Qty: 180 3RF furosemide 40 mg tablet 40 mg PO QAM PRN (Reason: weight gain, SOB, edema) Qty: 30 0RF chlorthalidone 25 mg tablet 25 mg PO DAILY Qty: 90 3RF Discharge Orders: Discharge Order (Routine); Ordered 03/13/25 Ordered By: Lucia Moore Admission Data Admit Date/Time: 03/10/25 08:00 Attending Provider: Rui Trejo Admit Provider: Ryne Glynn Primary Care Provider: Ryne Fishman Other Providers: Sagar Larose Other Interventions: Discharge Summary Assessment (RN) Last Done: 03/13/25 11:24 Hospital Stay Data Consultations 03/10/25 06:40 ED Decision to Admit Stat Diagnostic Imagining Performed Head CTA 03/10/25 03:44 EXAM: CT angio head wo/w CLINICAL HISTORY: eval posterior circulation - dizziness TECHNIQUE: Contrast enhanced thin slice CT angiography scan of the cerebral vessels was performed without and with intravenous contrast. Angiographic images were processed, 3D MIP images were acquired for interpretation. Contiguous axial images were obtained. Reformatted coronal and sagittal images were also reviewed. If IV contrast material had not been administered, the likelihood of detecting abnormalities relevant to the patients condition would have been substantially decreased. CT scan was performed according to ALARA (as low as reasonable achievable). COMPARISON: none. FINDINGS: BRAIN: The brain shows normal morphology, attenuation, and volume for age. No evidence of space occupying lesion, hemorrhage, edema, mass effect, midline shift, extra axial collection, or hydrocephalus is noted. Ventricles, sulci, and basal cisterns are symmetric and normal in size and configuration. The esposito-white matter differentiation is preserved. Bilateral maxillary sinusitis. Rest of paranasal sinuses and mastoid air cells are well aerated. Orbital contents are within normal limits. Bony structures are intact. CTA BRAIN: Atherosclerotic calcification are noted involving intracranial segment of bilateral vertebral arteries without significant stenosis. Bilateral internal carotid arteries show normal course, calibre and opacification in the canalicular and cavernous part. Their division into the anterior cerebral artery and middle cerebral artery is defined. A1, A2 and M1, M2 segments are normal on both the sides. Bilateral vertebral arteries are seen to unite the form the basilar artery in a normal fashion. Basilar artery shows normal course, caliber and opacification. Its division into the posterior cerebral arteries is defined. Bilateral P1 and P2 segments are normal. Visualized venous structures show normal opacification. No evidence of intracranial aneurysm or AV malformation is seen. IMPRESSION: 1. No evidence of acute intracranial abnormality is demonstrated 2. No evidence of stenosis or aneurysm. No evidence of dissection. 3. Atherosclerotic calcification are noted involving intracranial segment of bilateral vertebral arteries without significant stenosis. Electronically signed by Dayton Lomax 03-10-2025 05:08 AM Neck CTA 03/10/25 03:49 EXAM: CT angio neck with con CLINICAL HISTORY: dizziness - eval posterior circulation TECHNIQUE: Contrast enhanced thin slice CT angiography scan of the carotid vessels was performed with intravenous contrast. Angiographic images were processed, 3D MIP images were acquired for interpretation.Contiguous axial images were obtained. Reformatted coronal and sagittal images were also reviewed. If IV contrast material had not been administered, the likelihood of detecting abnormalities relevant to the patients condition would have been substantially decreased. CT scan was performed according to ALARA (as low as reasonable achievable). COMPARISON: None. FINDINGS: Atherosclerotic calcification is noted involving the intracranial segment of bilateral vertebral artery without significant stenosis. Included great vessels of the aortic arch are grossly unremarkable. Common carotid artery, carotid Bulb, internal carotid artery , and origin of the external carotid artery are well opacified. Vertebral arteries are well opacified. Jugular veins are well opacified. Included lung apices are grossly unremarkable. Thyroid gland appears unremarkable. IMPRESSION: 1. No evidence of stenosis or aneurysm. No evidence of dissection. 2.Atherosclerotic calcification is noted involving the intracranial segment of bilateral vertebral artery without significant stenosis. Electronically signed by Dayton Lmoax 03-10-2025 04:53 AM Brain MRI 03/10/25 09:31 MR brain wo con HISTORY: 49 years-old Male rule out stroke acute stroke like symptoms COMPARISON: CTA head of same day TECHNIQUE: Multiplanar multisequence MRI of the brain was obtained without IV contrast FINDINGS: There is no restricted diffusion to suggest acute or subacute infarct. Midline structures appear unremarkable. There is no acute intracranial hemorrhage, midline shift, abnormal extra-axial collection, hydrocephalus or intra-axial mass. There is a subcentimeter focus of blooming artifact noted within the left lateral nucleus on image 12 series 6 which may represent hemosiderin. The volume and signal characteristics of the brain parenchyma are otherwise within normal l imits. Cerebral venous sinuses and major arterial flow voids appear patent. The skull, orbits and soft tissues are unremarkable. Mastoid air cells are clear. 2.8 cm polypoid mucosal thickening noted within the left maxillary sinus. IMPRESSION: No acute intracranial abnormality. No acute or subacute infarct. ACT 112: Negative or not required by law. The above report was generated using voice recognition software. It may contain grammatical, syntax or spelling errors. Electronically signed by: Tristin Solano M.D. 03/10/2025 12:41 PM Discharge Instructions Given to Patient (Per Discharging Provider) You have been hospitalized for vertigo, which may be from a recent viral process or migraine. Imaging was negative for acute stroke or other abnormality. You were treated for a migraine with a migraine cocktail with improvement in symptoms. You should follow up with primary care and cardiology regarding your cardiomyopathy and discuss possible reduction in your coreg for heart rate if remains on the lower side as this can also contribute to symptoms but needed for your cardiac condition and prior afib/flutter. Please return to the ER with any return/worsening symptoms or for any other symptoms concerning for you. It has been a pleasure being a part of the medical team providing for you while you have been in the hospital . Take care. Supervising Physician Co-Signing Physician Notes The patient was not seen by me. The chart was reviewed. Case discussed with BOB Rubio. Agree with assessment and plan Total Time Total Time Spent Total Time Spent (In Minutes): 45 Coding Level of Care Code 66576 INP/OBS DISCH >30 MIN Diagnoses Vertigo R42 Heart failure with improved ejection fraction (HFimpEF) I50.32 Chronic kidney disease, stage 3a N18.31 Prediabetes R73.03
--- NOTE | 2025-03-13 09:49 | Electrocardiogram Report ---
Test Reason : Blood Pressure : */* mmHG Vent. Rate : 56 BPM Atrial Rate : 56 BPM P-R Int : 142 ms QRS Dur : 174 ms QT Int : 494 ms P-R-T Axes : 29 2 -5 degrees QTcB Int : 476 ms Sinus bradycardia Right bundle branch block Poor R-wave progression ; consider septal infarct, lead placement, or normal variant T wave abnormality, consider inferior ischemia Abnormal ECG When compared with ECG of 10-Mar-2025 02:45, Premature ventricular complexes are no longer Present Confirmed by Lara Mccracken (Ike) on 03/13/2025 9:49:23 AM Referred By: REFERRED SELF Confirmed By: Lara Mccracken
[2025-03-13 10:24] VITALS: BP 149/95; PULSE 65; O2SAT 95
[2025-03-13] MEDS: carvediloL 25 MG TAB PO SCH (11:11)
[2025-03-13] MEDS ORDERED: carvediloL 12.5 MG TAB PO SCH (17:00)
== END 2025-03-13 12:20 | disposition home or self-care (01) | DRG 149 ==
LOC: ED 02:33 → SUATTDRO 08:00 → 2S 08:00 → INTOOBSV 08:00 → 2S 09:12